=== PATIENT | female | born 1985 | race Caucasian/White ===

== ENCOUNTER 2020-05-03 18:01 | Outpatient (REF) | payer OTHER, SELFPAY | END 2020-05-03 18:02 | disposition home or self-care (01) | LOC: HO.LAB 18:01 | PROVIDERS: Visit Provider Internal Medicine | DX: Z20.828 Contact with and (suspected) exposure to other viral communicable diseases (principal) | CPT/HCPCS: C9803; U0003 ==

== ENCOUNTER 2024-05-26 07:52 | Emergency (ER) | payer OTHER, SELFPAY ==
--- NOTE | ~2024-05-26 | XR_ITS ---
EXAMINATION: XR RIGHT FOOT AND ANKLE CLINICAL INFORMATION: Pain, injury last night. COMPARISON: None available. TECHNIQUE: 3 views right foot. 2 views right ankle. FINDINGS: RIGHT FOOT/ANKLE: Minimal asymmetric widening along the lateral aspect of the ankle mortise. Small ossicles versus fractured ossicle along the lateral aspect of the midfoot. Bone mineralization is normal. Minimal degenerative changes in the first metatarsophalangeal joint. Tiny plantar calcaneal spur. XR/XR foot RT min 3V IMPRESSION: 1. Minimal asymmetric widening along the lateral aspect of the ankle mortise. 2. Small ossicles versus fractured ossicle along the lateral aspect of the midfoot. 3. Correlation with clinical exam recommended to determine further management. This study was presented today to May 26, 2024 for interpretation. Stat results provided at this time as requested by referring provider. Electronically signed by: Suzan Ludwig MD 05/26/2024 09:10 AM [facility]
--- NOTE | ~2024-05-26 | XR_ITS ---
EXAMINATION: XR RIGHT FOOT AND ANKLE CLINICAL INFORMATION: Pain, injury last night. COMPARISON: None available. TECHNIQUE: 3 views right foot. 2 views right ankle. FINDINGS: RIGHT FOOT/ANKLE: Minimal asymmetric widening along the lateral aspect of the ankle mortise. Small ossicles versus fractured ossicle along the lateral aspect of the midfoot. Bone mineralization is normal. Minimal degenerative changes in the first metatarsophalangeal joint. Tiny plantar calcaneal spur. XR/XR ankle RT 2V IMPRESSION: 1. Minimal asymmetric widening along the lateral aspect of the ankle mortise. 2. Small ossicles versus fractured ossicle along the lateral aspect of the midfoot. 3. Correlation with clinical exam recommended to determine further management. This study was presented today to May 26, 2024 for interpretation. Stat results provided at this time as requested by referring provider. Electronically signed by: Suzan Ludwig MD 05/26/2024 09:10 AM [facility]
[2024-05-26 07:54] VITALS: BP 146/72; PULSE 84; RESP 16; TEMP 36.6; O2SAT 97; BMI 39.5
--- NOTE | 2024-05-26 08:05 | ED.GENADULT ---
HPI - General Adult General Chief complaint: Extremity Injury, Lower Stated complaint: R foot pain Time Seen by Provider: 05/26/24 08:05 Source: patient Mode of arrival: ambulatory Limitations: no limitations History of Present Illness ED Provider: Amanda Spencer PA-C HPI narrative: Patient is a 38 year old assigned female at with a history of ADHD, MARK ANTHONY, and MDD presenting to the emergency department today with right ankle pain. Patient states that 2 weeks ago she rolled her right ankle and didn't think anything of it then 2 days ago she went for a 2 mile hike with new boots and is now having significantly worse right ankle pain. Patient denies any dizziness, lightheadedness, abdominal pain, nausea, vomiting, fever, chills, blurry vision, double vision, loss of vision, chest pain, difficulty breathing, shortness of breath, back pain, night sweats, pain with urination, increased urinary frequency, increased urinary urgency, blood in her urine or stool, syncope or a near syncopal episode, bowel incontinence, bladder incontinence, or any other complaints at this time. Onset (ago): day(s) (2) Relieving factors: immobilization Exacerbating factors: movement Associated symptoms: denies other symptoms Treatments prior to arrival: other (ibuprofen) Related Data Home Medications ?Medication ?Instructions ?Recorded ?Confirmed buspirone 7.5 mg tablet 7.5 mg PO BID 05/21/24 05/21/24 doxycycline hyclate 60 mg 60 mg PO DAILY PRN Flare up acne. 05/21/24 05/21/24 tablet,delayed release (Doryx MPC) spironolactone 50 mg tablet 50 mg PO BID 05/21/24 05/21/24 Previous Rx's ?Medication ?Instructions ?Recorded bupropion HCl 100 mg tablet,12 hr 100 mg PO QAM #14 tabs 05/25/24 sustained-release guanfacine 1 mg tablet,extended 1 mg PO DAILY as directed #30 tabs 05/25/24 release 24 hr lamotrigine 25 mg tablet 25 mg PO DAILY 14 days #14 tabs 05/25/24 hydrocodone 5 mg-acetaminophen 325 1 tab PO Q8H PRN pain #5 tabs 05/26/24 mg tablet Allergies Allergy/AdvReac Type Severity Reaction Status Date / Time metformin Allergy Diarrhea Verified 05/26/24 07:58 shellfish derived Allergy Diarrhea, Verified 05/26/24 07:58 vomiting, nausea. Review of Systems Constitutional: Constitutional: Reports no additional constitutional complaints, Denies chills, Denies fever(s) and Denies night sweats Eyes: Eyes: Reports no additional eye complaints, Denies blurry vision, Denies change in vision, Denies diplopia, Denies eye discharge, Denies loss of vision and Denies eye pain ENT: Denies dizziness Cardiovascular: Cardiovascular: Reports no additional cardiovascular complaints, Denies chest pain, Denies lightheadedness, Denies Loss of Consciousness and Denies dyspnea Respiratory: Respiratory: Reports no additional respiratory complaints and Denies dyspnea Gastrointestinal: Gastrointestinal: Reports no additional gastrointestinal complaints, Denies abdominal pain, Denies melena, Denies hematochezia, Denies change in bowel habits and Denies change in stool character Genitourinary: Genitourinary: Denies hematuria, Denies urinary frequency, Denies dysuria, Denies urinary incontinence, Denies urinary hesitancy and Denies urinary urgency Musculoskeletal: Musculoskeletal: Reports no additional musculoskeletal complaints, Denies numbness and Denies tingling Comments: right ankle pain Neurologic: Denies dizziness, Denies loss of vision, Denies numbness and Denies tingling Psychiatric: Psychiatric: Reports no additional psychiatric complaints Endocrine: Endocrine: Reports no additional endocrine complaints Hematologic/Lymphatic: Hematologic/Lymphatic: Reports no additional hematologic/lymphatic complaints Allergic/Immunologic: Allergic/Immunologic: Reports no additional allergic/immunologic complaints [facility] Past Medical History Attestation statement: The following information was validated with the patient. Source: old records reviewed and nursing notes reviewed Medical History Chronic headaches GERD (gastroesophageal reflux disease) High triglycerides IBS (irritable bowel syndrome) PCOS (polycystic ovarian syndrome) Surgical History History of bladder surgery Social History Social History Household Members: Spouse, Family and Children Patient Tobacco Use Status: Former Tobacco user Advance Directives: No Advance Directives Information Provided: Yes Physical Exam ED Vital Signs: Vital Signs - 24 hr 05/26/24 07:54 05/26/24 09:58 Temperature 97.9 F 97 F Pulse Rate 84 75 Respiratory Rate 16 20 Blood Pressure 146/72 H 145/74 H Pulse Oximetry 97 97 Oxygen Delivery Method Room Air Room Air BMI result Body Mass Index 39.5 Const General: cooperative, no acute distress, alert and awake Nutritional Appearance: well nourished Orientation/consciousness: patient oriented x3 Limitations: no limitations HENMT Head: Yes normal to inspection and Yes atraumatic Ears: hearing grossly normal bilaterally and external ears normal General nose exam: Normal external nose present, no nasal discharge noted and no epistaxis Face and sinus: Yes normal facial exam, No abrasion and No laceration Mouth: Normal oral and palatal mucosa present, no drooling and no muffled voice Eyes General: appearance normal, both eyes and all related structures Periorbital: periorbital findings normal Eyelids: Yes eyelids normal Conjunctivae: conjunctivae normal Pupils: Equal, round and reactive pupils present EOM: EOMs intact bilaterally Neck Neck: Yes normal visual inspection, Yes full ROM and Yes no lymphadenopathy Chest Chest palpation & inspection: normal inspection of the chest Resp Effort & Inspection: normal respiratory effort and able to speak in complete sentences GI Inspection: Yes normal to inspection Neuro General: patient oriented x3 and moves all extremities Cranial nerves: Yes Equal, round and reactive pupils present Cognition (Neuro): normal cognition Extrem General: Yes normal to inspection, Yes full ROM and Yes capillary refill normal Ankle/foot/toe images: 1. pain with palpation to this area Psych Appearance: grossly normal Mental Status: mental status grossly normal Affect: normal affect Attitude: cooperative Thought process: Normal thought process present Thought content: Normal thought content present Insight: Good insight present (Psych) Procedures Orthopedic Splinting/Casting Injury #1: Side: right Lower Extremity Injury Location: ankle Lower Extremity Immobilizer: boot orthosis Other Orthopedic Equipment: crutches Medical Decision Making Medical Decision Making MDM Narrative: Patient is a 38 year old assigned female at with a history of ADHD, MARK ANTHONY, and MDD presenting to the emergency department today with right ankle pain. Patient's physical exam was as noted in the physical exam portion of this note. Patient's ROM was intact. Patient's right foot + ankle x-rays showed minimal asymmetric widening along the lateral aspect of the ankle mortise as well as a small ossicle vs. fracture ossicle along the lateral aspect of the mid foot. Patient's examination is most consistent with an ATFL injury rather than a fractured ossicle. I explained my physical exam findings as well as all test results to the patient. I answered all questions asked by the patient. Patient's right foot / ankle was placed in a walking boot, without incident. Patient's PMS was intact prior to and after boot placement. Patient was given crutches + crutch instructions. I stressed the importance of the patient taking her medication as directed (either prescribed or as the over the counter packaging recommends). I stressed the importance of the patient following up with her primary care provider and an orthopedic provider. I stressed the importance of the patient returning to the emergency department immediately if her symptoms were to worsen or if she were to develop any dizziness, shortness of breath, difficulty breathing, chest pain, blurry vision, loss of vision, nausea, vomiting, abdominal pain, fever, chills, back pain, or any other complaints. Patient verbalized agreement and understanding with this treatment plan and discharge. Differential Diagnosis Differential Diagnoses: The differential diagnosis associated with the presentation includes Right ankle pain Right ankle strain Right ankle sprain Right ankle fracture Right foot fracture Right foot pain Right foot sprain Admission/Observation Consideration of admission/observation: Escalation of care including admission/observation considered Patient would have been admitted to the hospital had her work up had any findings where hospital admission was appropriate and her clinical presentation warranted hospital admission. Independent Interpretation I performed an independent interpretation of an: Plain X-Ray Interpretation: My interpretation is in agreement with the radiologist's impression of these imaging studies. EXAMINATION: XR RIGHT FOOT AND ANKLE CLINICAL INFORMATION: Pain, injury last night. COMPARISON: None available. TECHNIQUE: 3 views right foot. 2 views right ankle. FINDINGS: RIGHT FOOT/ANKLE: Minimal asymmetric widening along the lateral aspect of the ankle mortise. Small ossicles versus fractured ossicle along the lateral aspect of the midfoot. Bone mineralization is normal. Minimal degenerative changes in the first metatarsophalangeal joint. Tiny plantar calcaneal spur. XR/XR foot RT min 3V IMPRESSION: 1. Minimal asymmetric widening along the lateral aspect of the ankle mortise. 2. Small ossicles versus fractured ossicle along the lateral aspect of the midfoot. 3. Correlation with clinical exam recommended to determine further management. This study was presented today to May 26, 2024 for interpretation. Stat results provided at this time as requested by referring provider. Electronically signed by: Suzan Ludwig MD 05/26/2024 09:10 AM [facility] Dictated By: Suzan Ludwig MD Signed By: Electronically signed by Suzan Ludwig MD 05/26/24 09 Radiology Impression Discussion of test interpretation with radiology: I have reviewed the radiologist's reading. Prescription Management I considered prescription management with: Pain Medication (patient prescribed pain medication) Discharge Plan Discharge Clinical Impression: Ankle sprain and strain Patient Disposition: Home, Self-Care Instructions: Ankle Sprain (DC) Additional Instructions: Your x-ray showed no acute fracture / break however - it is concerning for a ligament injury. Please remain non weight bearing on your right lower extremity. Follow up with your primary care provider and an orthopedic provider. Return to the emergency department immediately if your symptoms worsen or if you develop any dizziness, shortness of breath, difficulty breathing, chest pain, blurry vision, loss of vision, nausea, vomiting, abdominal pain, fever, chills, back pain, or any other complaints. Prescriptions: New hydrocodone-acetaminophen 5-325 mg tablet 1 tab PO Q8H PRN (Reason: pain) Qty: 5 0RF Rx Instructions: Partial Fill upon patient request. No Action buspirone 7.5 mg tablet 7.5 mg PO BID Patient Comments: Last took 3-4 days ago. Rx Instructions: Last filled 04/27/24 90 day supply. spironolactone 50 mg tablet 50 mg PO BID Rx Instructions: Last filled 05/03/24 Doryx MPC 60 mg tablet,delayed release (DR/EC) 60 mg PO DAILY PRN (Reason: Flare up acne.) lamotrigine 25 mg tablet 25 mg PO DAILY 14 Days Qty: 14 0RF bupropion HCl 100 mg tablet sustained-release 12 hr 100 mg PO QAM Qty: 14 0RF guanfacine 1 mg tablet extended release 24 hr 1 mg PO DAILY Qty: 30 0RF Referrals: [facility] [Provider Group] (Call to establish and follow up with an orthopedic provider. ) Jessi Leal MD [Primary Care Provider] - Interventions: ED Discharge Assessment Last Done: 05/26/24 09:58 Discharge Date/Time: 05/26/24 09:58 Print Language: Vietnamese
[2024-05-26 09:58] VITALS: BP 145/74; PULSE 75; RESP 20; TEMP 36.1; O2SAT 97
== END 2024-05-26 09:58 | disposition home or self-care (01) ==
PROVIDERS: Emergency Provider Emergency Medicine; PCP Student in an Organized Health Care Education/Training Program
DX: S93.401A Sprain of unspecified ligament of right ankle, initial encounter (principal); S96.911A Strain of unspecified muscle and tendon at ankle and foot level, right foot, initial encounter; X50.1XXA Overexertion from prolonged static or awkward postures, initial encounter; M25.571 Pain in right ankle and joints of right foot; Y93.9 Activity, unspecified; Y92.9 Unspecified place or not applicable; Y99.9 Unspecified external cause status
CPT/HCPCS: 73600; 73630; 99283

== ENCOUNTER 2024-06-01 08:15 | Outpatient (REF) | payer OTHER, SELFPAY ==
[2024-06-01 09:59] LABS: MANUAL DIFF FLAG NO
[2024-06-01 10:07] LABS: Basophils Percent Auto 0.7 % (0-2); Eosinophils Absolute Auto 0.3 X10*3/uL (0.0-0.4); Eosinophils Percent Auto 4.7 % (0-4); Hemoglobin 14.4 g/dl (12.0-16.0); Imm Gran Abs Auto 0.02 X10*3/uL (0.00-0.03); Imm Gran Pct Auto 0.3 % (0.0-0.4); Lymphocytes Absolute Auto 1.3 X10*3/uL (1.2-4.9); Lymphocytes Percent Auto 21.9 % (20-40); Mean Corpuscular HGB Conc 33.5 g/dl (31.0-35.0); Mean Corpuscular Hemoglobin 30.3 pg (27.0-33.0); Mean Corpuscular Volume 90.3 fL (80.0-98.0); Mean Platelet Volume 10.7 fL (9.4-12.3); Monocytes Absolute Auto 0.4 X10*3/uL (0.1-1.2); Neutrophils Percent Auto 66.4 % (45-73); Platelet Count 243 X10*3/uL (160-400); Red Blood Count 4.76 X10*6/uL (4.20-5.50); Red Cell Distribution Width 12.6 % (11.0-16.0)
[2024-06-01 10:16] LABS: Estimated Average Glucose 91 mg/dL; Hemoglobin A1C 106.8781 umol/L; Hemoglobin A1c % 4.8 % (<6.0); Total Hemoglobin (HGBA1C) 3715.0551 umol/L
[2024-06-01 10:29] LABS: Alanine Aminotransferase 50 U/L (0-31); Albumin Level 4.5 g/dL (3.5-5.0); Alkaline Phosphatase 50 U/L (39-117); Anion Gap 11 (12-20); Aspartate Amino Transferase 27 U/L (5-31); Bilirubin Total 1.8 mg/dL (0.0-1.0); Blood Urea Nitrogen 16 mg/dL (9-16); Calcium 10.2 mg/dL (8.4-10.2); Carbon Dioxide 28 mmol/L (22-29); Chloride 106 mmol/L (96-108); Cholesterol 229 mg/dL (<200); Estimated Glomerular Filt Rate > 60; Glucose Random 100 mg/dL (60-115); HDL Cholesterol 61 mg/dL (>40); Iron 94 mcg/dL (30-160); LDL Cholesterol Calculated 139 mg/dL (<100); Percent Iron Saturation 32 % (15-50); Potassium 4.6 mmol/L (3.3-5.1); Sodium 140 mmol/L (135-145); Total Iron Binding Capacity 298 mcg/dL (228-428); Total Protein 7.9 g/dL (6.5-8.0); Triglycerides 146 mg/dL (<150); Unsaturated Iron Binding 204 ug/dL
[2024-06-01 10:52] LABS: Erythrocyte Sedimentation Rate 13 MM/HR (0-20)
[2024-06-01 11:51] LABS: Parathyroid Hormone Intact 62.3 pg/mL (8.7-77.1)
[2024-06-01 12:19] LABS: Folate 10.2 ng/mL (> or = 4.0); Vitamin B12 511 pg/mL (200-900)
[2024-06-01 13:06] LABS: Ferritin 99 ng/mL (10-122); Free T4 (Free Thyroxine) 1.04 ng/dL (0.71-1.85); Thyroid Stimulating Hormone 1.31 uIU/mL (0.32-4.0)
[2024-06-02 22:58] LABS: Homocysteine 8.1 umol/L (<10.4)
[2024-06-06 14:08] LABS: Vitamin B6 28.5 ng/mL (2.1-21.7)
[2024-06-08 13:54] LABS: Vitamin B1 10 nmol/L (8-30)
== END 2024-06-01 08:16 | disposition home or self-care (01) ==
LOC: HO.HMGCLDS 08:15
PROVIDERS: PCP Student in an Organized Health Care Education/Training Program; Visit Provider Psychiatry & Neurology Psychiatry
DX: F33.2 Major depressive disorder, recurrent severe without psychotic features (principal); F41.1 Generalized anxiety disorder; Z13.1 Encounter for screening for diabetes mellitus
CPT/HCPCS: 36415; 80053; 80061; 82306; 82607; 82728; 82746; 83036; 83090; 83540; 83735; 83970; 84100; 84207; 84425; 84439; 84443; 85025; 85652

== ENCOUNTER → 2024-06-03 09:00 | Outpatient (BNV) | payer OTHER, SELFPAY | PROVIDERS: Visit Provider Psychiatry & Neurology Psychiatry | DX: F33.2 Major depressive disorder, recurrent severe without psychotic features (principal); F41.1 Generalized anxiety disorder; R41.840 Attention and concentration deficit | CPT/HCPCS: 99213 ==

== ENCOUNTER 2024-06-11 10:23 | Outpatient (AMB) | payer OTHER, SELFPAY ==
--- NOTE | 2024-06-11 10:24 | A.OFFVIS_ITS ---
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 Patient reports less than week prior to [facility] ER visit she rolled her ankle upon getting out of her car, states she had no pain. Her pain increased after she went on a walk about 2 days prior to her ER visit. She started with a limp and was unable to toe touch weight bear. She presented to ER where x-rays were taken and placed in a walking boot. Currently she feels tightness and is unable to fully flex her toes. States having a tingling sensation, no numbness. Allergies metformin Allergy (Verified 06/11/24 10:28) Diarrhea shellfish derived Allergy (Verified 06/11/24 10:28) Diarrhea, vomiting, nausea. 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 She states that she stepped down and rolled her ankle but did not have immediate pain. That following Friday she went for a long walk and started experiencing pain and limping. She was seen in the emergency department on 05/26 or x-rays were obtained and showed an avulsion fragment along the cuboid. No fractures or dislocations throughout the metatarsals or the ankle. Ankle mortise was intact. She was placed in a boot and referred to our office for ortho eval. [facility] Medical History (Updated 06/11/24 @ 10:45 by Alesia Henderson PA-C) Chronic headaches GERD (gastroesophageal reflux disease) High triglycerides IBS (irritable bowel syndrome) PCOS (polycystic ovarian syndrome) Surgical History (Updated 06/11/24 @ 10:30 by HI Osborne) History of bladder surgery Social History (Updated 06/11/24 @ 10:36 by HI Osborne) Household Members: Spouse, Family and Children Patient Tobacco Use Status: Former Tobacco user Current occupational status: employed Review of Systems Const All systems reviewed & are unremarkable except as noted in HPI and below Physical Exam Vital Signs: BMI result Body Mass Index 39.5 Const General: cooperative and no acute distress Orientation/consciousness: patient oriented x3 Resp Effort & Inspection: normal respiratory effort and able to speak in complete sentences Cardio Peripheral pulses: Peripheral pulses 2+ throughout Neuro General: patient oriented x3 Extrem Other: Right foot is normal to inspection. She does have tenderness over the lateral edge of the foot which extends into the calcaneus. Full range of motion of the ankle without crepitus. EHL intact. No pain along the Achilles tendon. Neurovascularly intact. Office Procedures AMB Fracture Care Fracture Billing Code: Fracture Billing Code Results Reviewed Results Reviewed: xrays right foot/ankle 05/26/24 IMPRESSION: 1. Minimal asymmetric widening along the lateral aspect of the ankle mortise. 2. Small ossicles versus fractured ossicle along the lateral aspect of the midfoot. 3. Correlation with clinical exam recommended to determine further management. Assessment & Plan Assessment & Plan (1) Right foot sprain: Code(s): S93.601A - Unspecified sprain of right foot, initial encounter Category: Medical Plan: She will continue using the boot weightbearing as tolerated. She can remove the boot for rest and hygiene. She will begin a course of physical therapy for range of motion gentle strengthening proprioceptive training. She should start to wean out of the boot as symptoms allow over the next [address] as tolerated. She will begin a new job on 07 03 which would consist of more walking and standing. At this time I encouraged her to work with therapy rest for the next 2 weeks and try to wean out of the boot and depending on how she is doing she can contact me for limitations returning to work otherwise she will work full duty without restrictions and see me back as needed. Orders: Orders PT Evaluation and Treatment Today S93.601A - Unspecified sprain of right foot, initial encounter Medications: Discontinued lamotrigine Discontinued Reason: Patient no longer taking 25 mg PO DAILY 14 days 14 tabs 0RF hydrocodone-acetaminophen 5-325 mg Partial Fill upon patient request. Discontinued Reason: Patient no longer taking 1 tab PO Q8H PRN 5 tabs 0RF pain Coding Level of Care Code New Pt Level 3 (92930) Complex EM visit Add On G2211 Diagnoses Right foot sprain S93.601A CPT Codes Fracture Care - Fracture Billing Code: Fracture Billing Code ([id number])
[2024-06-11 10:27] VITALS: BMI 39.5
== END 2024-06-11 10:54 | disposition home or self-care (01) ==
PROVIDERS: PCP Student in an Organized Health Care Education/Training Program; Visit Provider Physician Assistant
DX: S93.601A Unspecified sprain of right foot, initial encounter (principal)
CPT/HCPCS: 99203

== ENCOUNTER 2024-06-15 10:30 | Outpatient (RCR) | payer OTHER, SELFPAY ==
[2024-05-21 09:43] VITALS: BMI 39.6
[2024-05-21 09:44] VITALS: BP 106/70; PULSE 80; TEMP 36.6
--- NOTE | 2024-05-21 10:49 | PC.ADMIT ---
Patient is a 38 year old female who was referred to [facility] by her spouse who was treated at [facility]. 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 Patient reports new management changes at work creating increased stress. Patient took BRAULIO from work to work on her mental health. Patient is alert and oriented x4. Calm and cooperative. She presented with depressed mood and anxious affect. Regarding SI patient stated, I have no plans but I have thought of ideas and I do have recurring feelings I would be better off if I did not wake up. Protective factor are her children. Patient started, My kids rely on me and to have there mom around and I am the bread winner. Patient reports she is at the program to work on this. She stated, That is why I am here . Patient stated she is able to reach out to crisis if needed as she has called them in the past. She stated she does reach out to somebody when needed. I've called my mom when I am in a crisis . Patient was given a copy of her safety plan if needed. Her goal of treatment is to be able to process things and improve her functioning. Medications reconciled with patient and patient pharmacy. Patient reports that she has been forgetting to take Buspar medication. We talked about ways to remember to take medications consistently. Patient reports she has used a pill organizer in the past with good results and is planning on implementing using a pill organizer to help her stay on track. We also talked about using an alarm on her phone and having a daily routine to help as well. Patient reports she has 1-2 glasses of wine, mostly socially, a few times a month.
--- NOTE | 2024-05-25 12:45 | P.HPPSP_ITS ---
HPI Date of Service: 05/25/24 Chief Complaint: depression,anxiety Sources of Information: patient interviewed, chart reviewed and crisis/core team assessment reviewed HPI Past Psychiatric History: Therapist: Justyna Anand 2019 Previous trials: WEllbutrin, Effexor, Celexa, Prozac, Remeron, Trileptal, Zyprexa, Seroquel, Ativan, trazodone Current Medications: Buspar 7.5 mg BID Ativan prn (old script but still around the house, uses rarely) spironolactone 50 mg BID [facility] Medical History Chronic headaches GERD (gastroesophageal reflux disease) High triglycerides IBS (irritable bowel syndrome) PCOS (polycystic ovarian syndrome) Narrative: LMP: due soon (irreg) Surgical History History of bladder surgery Diagnostics Vital Signs (24Hr): BMI result Body Mass Index 39.6 Meds/Allergies Meds Home Medications ?Medication ?Instructions ?Recorded ?Confirmed ?Type buspirone 7.5 mg tablet 7.5 mg PO BID 05/21/24 05/21/24 History doxycycline hyclate 60 mg 60 mg PO DAILY PRN Flare up acne. 05/21/24 05/21/24 History tablet,delayed release (Doryx MPC) spironolactone 50 mg tablet 50 mg PO BID 05/21/24 05/21/24 History Allergies Allergies Allergy/AdvReac Type Severity Reaction Status Date / Time metformin Allergy Diarrhea Verified 05/26/24 07:58 shellfish derived Allergy Diarrhea, Verified 05/26/24 07:58 vomiting, nausea. Mental Status Exam Mental Status Exam Narrative: Alert, oriented, in no acute distress. Calm, cooperative, engaged. No psychomotor agitation or neurovegetative retardation. Eye contact maintained. Mood anxious, affect variable, mood congruent. Speech normal. Thought process linear, coherent. Thought content related to stressors, denies any hopelessness or SI. Denies any aggressive ideation or HI. No paranoia or delusional content elicited. No evidence of psychosis. Insight and judgment - fair but adequate. Assessment & Plan Assessment & Plan (1) MDD (major depressive disorder), recurrent severe, without psychosis: Status: Acute Code(s): F33.2 - Major depressive disorder, recurrent severe without psychotic features (2) MARK ANTHONY (generalized anxiety disorder): Status: Acute Code(s): F41.1 - Generalized anxiety disorder (3) Attention and concentration deficit: Status: Acute Code(s): R41.840 - Attention and concentration deficit Plan Admit to [facility] VS reviewed: isabell, BP 106/70;?80 bpm start Wellbutrin SR 50 mg qam start guanfacine ER 1 mg qam start lamotrigine 25 mg qam discontinue buspirone continue other regular medications: spironolactone 50 mg BID, ? Routine lab work ordered as indicated EKG, routine for baseline QTc for medication considerations as indicated UDS as indicated [facility] reviewed Continue to monitor as per protocol Patient educated on: diagnosis and medication risk/benefits Informed Consent: understands Reason for continued partial hosp. stay Substantial Risk for: inability to function, rapid decompensation and med/psych decompensation Certification I certify that partial hospital treatment is medically necessary due to the symptoms and problems resulting from the patient's mental illness and the failure to treat the patient at the partial hospital level of care would likely result in the patient requiring inpatient psychiatric care which could not be prevented at a less intensive level of care. Time Spent With Patient Time: Total time managing care of this patient today _60___ minutes.
--- NOTE | 2024-06-03 12:56 | P.PNPSP_ITS ---
Subjective Subjective Date of Service: 06/03/24 Reason For Visit: depression,anxiety Interim History: Patient reports she is still struggling with everything . Mood continues to be low, with low energy, motivation, just not feeling up to do anything . She shares feeling frustrated in general and that there are a lot of issues going on at home which she elaborates on. She describes poor frustration tolerance and continues to get really reactive and snaps at her and young children. She denies any issues with aggression. I'm just in a really bad mood and stressed out . She denies any further deterioration in her mood which is about the same . She notes since we last met, she somehow injured her foot which is in a boot, and has added more tension in the home due to difficulty getting around. On a positive note, there has been some modest change in energy level, but overall still remains on the low side and takes a lot of effort to motivate herself to do things. She continues on only a 1/2 tablet of Wellbutrin, denies any adverse effects so far and is agreeable to increasing to whole tablet daily in AM. SHe denies experiencing adverse affects from any of the medication. No issues with starting Lamcital 25 mg. She feels there have been some modest improvements in her physical anxiety which may be attributed to guanfacine, and is taking all the medication in the AM, as planned, which has helped simplified treatment and improved compliance. She endorses some ongoing SI trickling through here and there, but I never have any plan or intent . Last thought was this morning. Continues with anhedonia, feeling stuck and overwhelmed most the time . DEnies any current SI, no HI, AH, VH. Will contiue with medication changes. Medication Compliance: Yes Side effects from medications: No Attending Groups: Yes Review of Systems Acute medical concerns: No Medical Review of Systems: unchanged Mental Status Exam Mental Status Exam Narrative: Alert, oriented, in no acute distress. Mood depressed affect blunted. Speech normal. Thought process linear, coherent. Thought content related to stressors, demoralized, transient hopelessness and passive SI, denies any thoughts, intention, urge or plan to harm self. Denies any aggressive ideation or HI. No paranoia or delusional content elicited. No evidence of psychosis. Insight and judgment - fair but adequate. Diagnostics Vital Signs (24Hr): BMI result Body Mass Index 39.6 Assessment & Plan Assessment & Plan (1) MDD (major depressive disorder), recurrent severe, without psychosis: Status: Acute Code(s): F33.2 - Major depressive disorder, recurrent severe without psychotic features (2) MARK ANTHONY (generalized anxiety disorder): Status: Acute Code(s): F41.1 - Generalized anxiety disorder (3) Attention and concentration deficit: Status: Acute Code(s): R41.840 - Attention and concentration deficit Plan extend treatment at [facility] increase Wellbutrin SR to 100 mg qam and will plan to add 50 mg at lunch over weekend continue guanfacine ER 1-2 mg qam continue lamotrigine 25 mg qam (increase to 50 mg on 06/08) discontinue buspirone continue other regular medications: spironolactone 50 mg BID, ? Routine lab work ordered as indicated EKG, routine for baseline QTc for medication considerations as indicated UDS as indicated MassPat reviewed Continue to monitor as per protocol Patient educated on: diagnosis and medication risk/benefits Informed Consent: understands Reason for contiued partial hosp. stay Substantial Risk for: inability to function, rapid decompensation and med/psych decompensation Certification I certify that partial hospital treatment is medically necessary due to the symptoms and problems resulting from the patient's mental illness and the failure to treat the patient at the partial hospital level of care would likely result in the patient requiring inpatient psychiatric care which could not be prevented at a less intensive level of care. Total time managing care of this patient today __30__ minutes. Discharge Plan Discharge Attending provider: Tiffany Ulrich Medications: New lamotrigine 25 mg tablet 25 mg PO DAILY 14 Days Qty: 14 0RF bupropion HCl 100 mg tablet sustained-release 12 hr 100 mg PO QAM Qty: 14 0RF guanfacine 1 mg tablet extended release 24 hr 1 mg PO DAILY Qty: 30 0RF lamotrigine 25 mg tablet See Rx Instructions .ROUTE .COMPLEX Qty: 75 0RF Rx Instructions: take 2 tablet po daily for 2 weeks then increase to 3 tablet po daily Continued buspirone 7.5 mg tablet 7.5 mg PO BID Patient Comments: Last took 3-4 days ago. Rx Instructions: Last filled 04/27/24 90 day supply. spironolactone 50 mg tablet 50 mg PO BID Rx Instructions: Last filled 05/03/24 No Action Doryx MPC 60 mg tablet,delayed release (DR/EC) 60 mg PO DAILY PRN (Reason: Flare up acne.) hydrocodone-acetaminophen 5-325 mg tablet 1 tab PO Q8H PRN (Reason: pain) Qty: 5 0RF Rx Instructions: Partial Fill upon patient request. Stand Alone Forms: Patient Portal Discharge page Print Language: Hungarian Telehealth Telehealth Telehealth Platform: Telephone
--- NOTE | 2024-06-03 16:13 | HO.PHP ---
Jasmyne was called at home to inform her not to attend [facility] tomorrow, 06/04/24 while we await approval from [facility] for more authorized time. Jasmyne's last covered day was today. A concurrent review was submitted this morning but the [facility] textiles sales representative Shannon declined to approve days and requested an updated doctor's note. The note will be submitted to [facility] tomorrow morning. Jasmyne reports she is safe and is expecting to resume at [facility] on Friday once [facility] has approved the extension.
--- NOTE | 2024-06-08 14:50 | P.PNPSP_ITS ---
Subjective Subjective Date of Service: 06/08/24 Reason For Visit: depression,anxiety Interim History: Reports things have been difficult. Mood has been up and down . Yesterday was particularly difficult, had some SI thoughts. Today has been good . She has been tolerating medications. Started WEllbutrin, increase to 150 mg over past weekend. Guanfacine initially helpful for anxiety although not feeling it as much since increasing Wellbutrin to 150 mg. Denies any SI today. Medication Compliance: Yes Side effects from medications: No Attending Groups: Yes Review of Systems Acute medical concerns: No Mental Status Exam Mental Status Exam Narrative: Alert, oriented, in no acute distress. Mood depressed affect blunted. Speech normal. Thought process linear, coherent. Thought content related to stressors, demoralized, transient hopelessness and passive SI, denies any thoughts, intention, urge or plan to harm self. Denies any aggressive ideation or HI. No paranoia or delusional content elicited. No evidence of psychosis. Insight and judgment - fair but adequate. Diagnostics Vital Signs (24Hr): BMI result Body Mass Index 39.6 Assessment & Plan Assessment & Plan (1) MDD (major depressive disorder), recurrent severe, without psychosis: Status: Acute Code(s): F33.2 - Major depressive disorder, recurrent severe without psychotic features (2) MARK ANTHONY (generalized anxiety disorder): Status: Acute Code(s): F41.1 - Generalized anxiety disorder (3) Attention and concentration deficit: Status: Acute Code(s): R41.840 - Attention and concentration deficit Plan extend treatment at [facility] increase Wellbutrin SR to 200 mg/d (cont 100 mg in qam and increase to 100 mg at lunch) increase guanfacine ER from 1 mg BID to 1 mg qam and 2 mg qpm increase lamotrigine to 50 mg qam (continue titration by 25 mg q 2wks) continue other regular medications: spironolactone 50 mg BID discontinued: buspirone Routine lab work reviewed EKG, routine for baseline QTc for medication considerations as indicated Continue to monitor as per protocol Patient educated on: diagnosis and medication risk/benefits Informed Consent: understands Reason for contiued partial hosp. stay Substantial Risk for: inability to function and med/psych decompensation Certification I certify that partial hospital treatment is medically necessary due to the symptoms and problems resulting from the patient's mental illness and the failure to treat the patient at the partial hospital level of care would likely result in the patient requiring inpatient psychiatric care which could not be prevented at a less intensive level of care. Total time managing care of this patient today _30___ minutes. Discharge Plan Discharge Attending provider: Tiffany Ulrich Medications: New lamotrigine 25 mg tablet 25 mg PO DAILY 14 Days Qty: 14 0RF lamotrigine 25 mg tablet See Rx Instructions .ROUTE .COMPLEX Qty: 75 0RF Rx Instructions: take 2 tablet po daily for 2 weeks then increase to 3 tablet po daily guanfacine 2 mg tablet extended release 24 hr 2 mg PO QPM Qty: 30 0RF Continued buspirone 7.5 mg tablet 7.5 mg PO BID Patient Comments: Last took 3-4 days ago. Rx Instructions: Last filled 04/27/24 90 day supply. spironolactone 50 mg tablet 50 mg PO BID Rx Instructions: Last filled 05/03/24 Changed bupropion HCl 100 mg tablet sustained-release 12 hr 100 mg PO BID Qty: 30 0RF guanfacine 1 mg tablet extended release 24 hr 1 mg PO QAM Qty: 30 0RF No Action Doryx MPC 60 mg tablet,delayed release (DR/EC) 60 mg PO DAILY PRN (Reason: Flare up acne.) hydrocodone-acetaminophen 5-325 mg tablet 1 tab PO Q8H PRN (Reason: pain) Qty: 5 0RF Rx Instructions: Partial Fill upon patient request. Stand Alone Forms: Patient Portal Discharge page Print Language: Sudanese
--- NOTE | 2024-06-15 22:00 | HO.PHPPROGNO ---
Subjective Subjective Date of Service: 06/15/24 Reason For Visit: depression,anxiety Mental Status Exam Mental Status Exam Narrative: Alert, oriented, in no acute distress. Mood depressed affect blunted. Speech normal. Thought process linear, coherent. Thought content related to stressors, demoralized, transient hopelessness and passive SI, denies any thoughts, intention, urge or plan to harm self. Denies any aggressive ideation or HI. No paranoia or delusional content elicited. No evidence of psychosis. Insight and judgment - fair but adequate. Diagnostics Vital Signs (24Hr): BMI result Body Mass Index 39.6 Assessment & Plan Assessment & Plan (1) MDD (major depressive disorder), recurrent severe, without psychosis: Status: Acute Code(s): F33.2 - Major depressive disorder, recurrent severe without psychotic features (2) MARK ANTHONY (generalized anxiety disorder): Status: Acute Code(s): F41.1 - Generalized anxiety disorder (3) Attention and concentration deficit: Status: Acute Code(s): R41.840 - Attention and concentration deficit Plan Discharge from [facility] - transition to IOP continue Wellbutrin SR 200 mg/d (split 100 mg BID in am/noon) increase guanfacine ER from 1 mg BID to 1 mg qam and 2 mg qpm continue lamotrigine 50 mg qam (continue titration by 25 mg q 2wks until 100 mg/d) start oxcarbazepine 150 mg qhs, increase to 300 mg qhs as tolerated continue other regular medications: spironolactone 50 mg BID discontinued: buspirone Routine lab work reviewed EKG, routine for baseline QTc for medication considerations as indicated Continue to monitor as per protocol Patient educated on: diagnosis and medication risk/benefits Informed Consent: understands Certification I certify that partial hospital treatment is medically necessary due to the symptoms and problems resulting from the patient's mental illness and the failure to treat the patient at the partial hospital level of care would likely result in the patient requiring inpatient psychiatric care which could not be prevented at a less intensive level of care. Total time managing care of this patient today ____ minutes. Discharge Plan Discharge Attending provider: Tiffany Ulrich Medications: New lamotrigine 25 mg tablet See Rx Instructions .ROUTE .COMPLEX Qty: 75 0RF Rx Instructions: take 2 tablet po daily for 2 weeks then increase to 3 tablet po daily guanfacine 2 mg tablet extended release 24 hr 2 mg PO QPM Qty: 30 0RF oxcarbazepine 300 mg tablet See Rx Instructions .ROUTE .COMPLEX Qty: 30 0RF Rx Instructions: start 1/2 tablet po twice daily for 6 days, then increase to 1 tablet po twice daily lamotrigine 100 mg tablet 100 mg PO DAILY Qty: 30 0RF Continued spironolactone 50 mg tablet 50 mg PO BID Rx Instructions: Last filled 05/03/24 Changed bupropion HCl 100 mg tablet sustained-release 12 hr 100 mg PO BID Qty: 30 0RF guanfacine 1 mg tablet extended release 24 hr 1 mg PO QAM Qty: 30 0RF No Action Doryx MPC 60 mg tablet,delayed release (DR/EC) 60 mg PO DAILY PRN (Reason: Flare up acne.) Stand Alone Forms: Patient Portal Discharge page Print Language: Tamazight
== END 2024-06-15 23:59 | disposition home or self-care (01) ==
LOC: HO.PHPA 10:30
PROVIDERS: Visit Provider Psychiatry & Neurology Psychiatry
DX: F33.2 Major depressive disorder, recurrent severe without psychotic features (principal); F41.1 Generalized anxiety disorder; R41.840 Attention and concentration deficit; Z79.899 Other long term (current) drug therapy
CPT/HCPCS: 90791; 90853

== ENCOUNTER 2024-06-16 09:49 | Outpatient (RCR) | payer OTHER, SELFPAY ==
--- NOTE | 2024-06-16 10:56 | MHC.PT.EP ---
[facility] [place] Office [place] [facility] [place] Office [address] [phone] F: [phone] F: [phone] F: [phone] F: [phone] Physical Therapy Plan of Care Date of Evaluation: 06/16/24 Date of Surgery: Diagnosis: R foot sprain. Assessment: Patient is a 38 year old R handed female who presents with s/s consistent with R ankle sprain, pain. She works with daily job demands including a fairly sedentary job. She does like to be active and hike. Patient past medical history is non-contributory. Current impairments include pain, balance, ROM, strength, activity tolerance and functional mobility. Functional limitations include decreased ability to stand, walk, hike, stand for long periods, and negotiate stairs. Patient is motivated with good rehab potential. Skilled PT will address impairments and functional limitations in order to achieve goals. Frequency and Duration: The patient will be seen 2x/week for 5 weeks Short Term Goals: I with HEP - 2 weeks AROM WNL and pain free - 3 weeks TTP absent plantar surface of foot - 3 weeks Nursing Home Goals: Strength 5/5 grossly in ankle - 5 weeks LEFS 68/80 - 5 weeks Restore pain free PLOF - 5 weeks Treatment Plan: Modalities to reduce pain, spasms and effusion. Manual therapy to restore motion and function. Therapeutic exercise to improve strength and flexibility. Neuromuscular re-education for posture and balance. Therapeutic activities to return to functional activities of daily living. Electronically signed by: Cipriano Frederick PT Please sign and return to therapist. Thank you for your referral.
--- NOTE | 2024-09-01 13:33 | MHC.PT.DC ---
[facility] [place] Office [place] Office [place] Office [address] Jessy Wheeler [address] [phone] F: [phone] F: [phone] F: [phone] F: [phone] Physical Therapy Discharge Report Diagnosis: R foot sprain. Date of Surgery: Date of Evaluation: 06/16/24 Date of Discharge: 07/13/24 Treatments to Date: 1 Cancellations to Date: No Shows to Date: Discharge Status: Independent with HEP Discharge Summary: Patient is a 38 year old R handed female who presents with s/s consistent with R ankle sprain, pain. She works with daily job demands including a fairly sedentary job. She does like to be active and hike. Patient past medical history is non-contributory. Current impairments include pain, balance, ROM, strength, activity tolerance and functional mobility. Functional limitations include decreased ability to stand, walk, hike, stand for long periods, and negotiate stairs. Patient is motivated with good rehab potential. Skilled PT will address impairments and functional limitations in order to achieve goals. Electronically signed by: Cipriano Frederick, PT Please sign and return to therapist. Thank you for your referral.
== END 2024-09-01 13:34 | disposition home or self-care (01) ==
LOC: HO.PTCHIC 09:49
PROVIDERS: PCP Student in an Organized Health Care Education/Training Program; Visit Provider Physician Assistant
DX: S93.601D Unspecified sprain of right foot, subsequent encounter (principal)
CPT/HCPCS: 97110; 97162

== ENCOUNTER → 2024-07-02 09:15 | Outpatient (BNV) | payer OTHER, SELFPAY | PROVIDERS: Visit Provider Psychiatry & Neurology Psychiatry | DX: F33.2 Major depressive disorder, recurrent severe without psychotic features (principal); F63.89 Other impulse disorders; F41.3 Other mixed anxiety disorders; R41.840 Attention and concentration deficit | CPT/HCPCS: 90792 ==

== ENCOUNTER 2024-07-16 09:15 | Outpatient (RCR) | payer OTHER, SELFPAY ==
[2024-06-25 11:59] VITALS: BP 108/80; PULSE 72; TEMP 36.7
[2024-06-25 12:02] VITALS: BMI 39.5
--- NOTE | 2024-06-28 10:33 | HO.PHP ---
Jasmyne is not scheduled for [facility] today.
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
--- NOTE | 2024-07-01 15:31 | HO.IOP ---
Client's case has been opened and reviewed in team.
--- NOTE | 2024-07-06 16:06 | PM.EVENT ---
Event Note Date of Service: 07/06/24 Event Note: sent 90 day supply guanfacine 2 mg hs . Filled out rtw letter . coverage for dr dwyer Time Spent With Patient Time: Total time managing care of this patient today ____ minutes.
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
--- NOTE | 2024-07-16 13:15 | HO.PHPPROGNO ---
Subjective Subjective Date of Service: 07/16/24 Reason For Visit: depression,anxiety Diagnostics Vital Signs (24Hr): BMI result Body Mass Index 39.5 Assessment & Plan Certification I certify that partial hospital treatment is medically necessary due to the symptoms and problems resulting from the patient's mental illness and the failure to treat the patient at the partial hospital level of care would likely result in the patient requiring inpatient psychiatric care which could not be prevented at a less intensive level of care. Total time managing care of this patient today ____ minutes. Discharge Plan Discharge Attending provider: Tiffany Ulrich Medications: New lisdexamfetamine 10 mg capsule 10 mg PO QAM Qty: 14 0RF Rx Instructions: Partial Fill upon patient request. guanfacine 3 mg tablet extended release 24 hr 3 mg PO QPM Qty: 30 0RF Rx Instructions: DOSE TITRATION SO NOT 90 DAYS Continued spironolactone 50 mg tablet 50 mg PO BID Rx Instructions: Last filled 05/03/24 Doryx MPC 60 mg tablet,delayed release (DR/EC) 60 mg PO DAILY PRN (Reason: Flare up acne.) bupropion HCl 100 mg tablet sustained-release 12 hr 100 mg PO BID 90 Days Qty: 180 0RF oxcarbazepine 300 mg tablet See Rx Instructions .ROUTE .COMPLEX Qty: 90 0RF Patient Comments: Patient stated she is currently taking one tab daily as instructed. Has not increased BID. Patient to discuss with Dr. Ulrich. Rx Instructions: start 1/2 tablet po twice daily for 6 days, then increase to 1 tablet po twice daily gabapentin 300 mg capsule 300 mg PO BEDTIME Qty: 30 0RF Rx Instructions: 1 cap bedtime. DOSE ADJUSTING SO NOT 90 DAYS gabapentin 100 mg capsule 100 mg PO BID Qty: 60 0RF Rx Instructions: 1 cap morning and afternoon. 1 cap as needed 2 times per day for anxiety. DOSE TITRATION SO NOT 90 DAY SUPPLY guanfacine 1 mg tablet extended release 24 hr 1 mg PO QAM Qty: 90 0RF Changed lamotrigine 100 mg tablet 200 mg PO DAILY Qty: 180 0RF Patient Comments: Patient to discuss with Dr. Ulrich when to increase to 100 mg daily. Rx Instructions: Patient has not started. She is currently taking 75 mg daily. Discontinued guanfacine 2 mg tablet extended release 24 hr 2 mg PO QPM Qty: 90 0RF guanfacine 2 mg tablet extended release 24 hr 2 mg PO QPM Qty: 30 0RF lamotrigine 25 mg tablet 75 mg PO DAILY Patient Comments: Patient stated she is now taking 3 tabs daily. Rx Instructions: Take 3 tabs daily. Stand Alone Forms: Patient Portal Discharge page Print Language: Chilean
== END 2024-07-16 23:59 | disposition home or self-care (01) ==
LOC: HO.IOP 09:15
PROVIDERS: Visit Provider Psychiatry & Neurology Psychiatry
DX: F33.2 Major depressive disorder, recurrent severe without psychotic features (principal); F41.3 Other mixed anxiety disorders; F41.1 Generalized anxiety disorder; F63.89 Other impulse disorders; R41.840 Attention and concentration deficit; Z79.899 Other long term (current) drug therapy
CPT/HCPCS: 90791; S9480

== ENCOUNTER → 2024-10-18 08:02 | Outpatient (BNVA) | payer OTHER, SELFPAY | PROVIDERS: PCP Student in an Organized Health Care Education/Training Program; Visit Provider Surgery ==

== ENCOUNTER 2024-10-29 08:31 | Outpatient (AMB) | payer OTHER, SELFPAY ==
--- NOTE | 2024-10-29 10:43 | A.OFFVIS_ITS ---
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 40.4: Details: Start time: 10.35am, End time: 11.15am ?I spent 35 minutes speaking with the patient on the phone plus an additional 5 minutes reviewing and updating records for a total of 40 minutes HPI Comments Details: Previous weight loss surgery: Ozempic (a few months: 10lbs, had side effects), hypnosis, RD, Contrave, WW Wakes up: 6am, Sleeps: 12am Breakfast: 8am (banana, cereal) Lunch: 12pm (yogurt, banana, buritos) Dinner: 6-7pm (tacos, pasta, take-out) Snacks: 9-10pm (popcorn, cookies, ice cream) Exercise: walking pad Beverages: Coffee: none, tea: none, soda: 1/wk (coke zero, diet coke), juice: none, ETOH: none PFSH Medical History (Updated 10/29/24 @ 10:48 by Eduard Tesfaye MD) Morbid obesity Hypertension Fatty liver Chronic headaches GERD (gastroesophageal reflux disease) High triglycerides IBS (irritable bowel syndrome) PCOS (polycystic ovarian syndrome) Surgical History (Updated 06/11/24 @ 10:30 by HI Osborne) History of bladder surgery Family History (Updated 10/18/24 @ 08:17 by Surekha Hopkins CMA) Mother No problems noted. Father TIA (transient ischemic attack) Depression Anxiety Daughter No problems noted. Daughter No problems noted. Social History (Updated 10/18/24 @ 08:17 by Surekha Hopkins CMA) Household Members: Family Alcohol intake: never Comment: FRANNIE 07/16/24 Patient Tobacco Use Status: Former Tobacco user Current occupational status: employed Telehealth Telehealth Telehealth Platform: Telephone Location of provider rendering services: practice address Location of patient: address on file Patient Identification confirmed using: Name, : Yes Telehealth method: voice only Patient verbally consented to treatment: Yes Patient verbally consented to billing insurance company: Yes Patient informed of any privacy concerns related to visit: Yes Minutes spent on Phone/Video with Pt.: 40 Assessment & Plan Assessment & Plan (1) Morbid obesity: Code(s): E66.01 - Morbid (severe) obesity due to excess calories Category: Medical Plan: 1.? Plan for lap sleeve gastrectomy. If diaphragmatic or ventral hernias are present at time of surgery, these will be repaired laparoscopically as well. I emphasized the importance of close follow-up, adherence to instructions and good communication. The surgery does not replace the need to change your lifestlyle which is the cause of the obesity problem. The surgery provides the motivation to try again to change your lifestyle, it reduces the appetite and make the transition to a better lifestyle easier and doubles the amount of weight you would lose compared to doing the lifestyle change without the surgery. You will need to be on a liquid diet with protein shakes for 2 weeks before surgery to maximize weight loss and boost your nutritional status to recover better from surgery and also for the first two weeks after surgery to let the stomach heal before we introduce other foods. After the first 2 weeks we will introduce protein bars and soft foods like scrambled eggs, cottage cheese and yogurt and after the 6th week will introduce meat, fish and cooked vegetables in small amounts. Over time you should be able to eat everything in small amounts. Side effects like nausea, vomiting, heartburn or abdominal pain are not common in the practice unless you are not following in the practice. This operation requires lifetime commitment to following in our practice and communication with me. You will much less weight and experience side effects if you don?t communicate or not following in the practice. Complications are rare and in our practice is about 1/10 of the national average. However, you can develop bleeding that may require transfusion (hasn?t happened for year in the practice), you may from complications (we did not have any deaths in the practice) and infections. Infections are usually a result of breakdown in communication or not understanding or following directions correctly. They are difficult to treat, they can happen during the first 6 weeks, they may require to be in the hospital for weeks or even months, not being able to eat by mouth and you may have drains and surgeries to try and correct the issue. Other risks and complications include possible conversion to an open procedure, leaks, small bowel obstruction, blood clots, cardiac, or pulmonary complications, as half-way complications such as ulcers, insufficient weight loss and vitamin deficiencies. 2. You will receive a link of our software sarah to generate an individualized nutritional and exercise plan specific for you. Please send me a screenshot of the plans you will generate Meal to include lean meat (beef, fish, pork, turkey, chicken), or bulgarian yogurt, or egg whites, or beans with a salad with olive oil and fruits (berries, pears, apples, kiwi). Avoid salt, breads, potatoes, rice, pasta, desserts. ?3. If you choose shakes, each shake would be drunk slowly, like coffee in a period of 2 hours. ?4. If you choose bars, cut each bar in 4 pieces and eat each piece in 30min ?to make each bar last 2 hours. ?5. I emphasized the importance of measuring accurately the food portion and measure it when serving the food in plate ?6. The meal portions include a specific number of forks of meat and salad. You always eat the meat portion but you can replace up to half of salad/vegetables portion with rice, potatoes or pasta, or a fruit ?if you like. The less you do it the better weight loss will be. ?7. One full-size fork is what it can be scooped on the fork without falling aside and not what can be bit with the fork. Use regular forks like those you find in a typical restaurant. ?8.? Please buy the body composition scale we discussed and send me weight measurements as soon as possible and then once a week. Always include your diet and exercise plan. 9. The best exercise choice would be to use your treadmill at home that can track calories. You can create and exercise plan with the [employer] sarah. ?10.?It is important of avoiding and for at least 18 months postoperatively and has been discussed at the infosession. ?11. Goal is to lose at least 1.5-2lbs per week ?12. Goal to lose 10% of your weight before surgery, which is about 25lbs. Ultimate weight goal: 225lbs before surgery 13. Please follow the diet plan exactly without any change. If you don't like something about the plan or you feel hungry you need to communicate with me so I can help you revise the plan. You should not change the plan yourself. 14. To be scheduled for EGD to assess the stomach's anatomy. The possibility of biopsies was discussed. Patient needs to avoid use of NSAIDs and aspirin for 1 week prior to EGD. You must be on liquids only the day before your endoscopy. Risks of perforation and bleeding was discussed with the patient. This will be an outpatient procedure with IV sedation. Orders: Orders H Pylori Breath Test Today E66.01 - Morbid (severe) obesity due to excess calories, I10 - Essential (primary) hypertension Complete Blood Count Auto Diff Today E66.01 - Morbid (severe) obesity due to excess calories, I10 - Essential (primary) hypertension Lipid Panel Today E66.01 - Morbid (severe) obesity due to excess calories, I10 - Essential (primary) hypertension Vitamin B12 and Folate Today E66.01 - Morbid (severe) obesity due to excess calories, I10 - Essential (primary) hypertension Zinc Today E66.01 - Morbid (severe) obesity due to excess calories, I10 - Essential (primary) hypertension Vitamin B1 Today E66.01 - Morbid (severe) obesity due to excess calories, I10 - Essential (primary) hypertension Ferritin Today E66.01 - Morbid (severe) obesity due to excess calories, I10 - Essential (primary) hypertension FL upper GI w air Today E66.01 - Morbid (severe) obesity due to excess calories, I10 - Essential (primary) hypertension Insulin Today E66.01 - Morbid (severe) obesity due to excess calories, I10 - Essential (primary) hypertension Hemoglobin A1c Today E66.01 - Morbid (severe) obesity due to excess calories, I10 - Essential (primary) hypertension IRON PROFILE Today E66.01 - Morbid (severe) obesity due to excess calories, I10 - Essential (primary) hypertension Comprehensive Met. Panel Today E66.01 - Morbid (severe) obesity due to excess calories, I10 - Essential (primary) hypertension C Reactive Protein Today E66.01 - Morbid (severe) obesity due to excess calories, I10 - Essential (primary) hypertension Vitamin A Today E66.01 - Morbid (severe) obesity due to excess calories, I10 - Essential (primary) hypertension TSH reflex Free T4 Today E66.01 - Morbid (severe) obesity due to excess calories, I10 - Essential (primary) hypertension Vitamin D 25-OH Total Today E66.01 - Morbid (severe) obesity due to excess calories, I10 - Essential (primary) hypertension US abdomen comp w elastography Today E66.01 - Morbid (severe) obesity due to excess calories, I10 - Essential (primary) hypertension XR chest 2V Today E66.01 - Morbid (severe) obesity due to excess calories, I10 - Essential (primary) hypertension ECG 12 lead EKG Today E66.01 - Morbid (severe) obesity due to excess calories, I10 - Essential (primary) hypertension Referrals Behavioral Health Referral E66.01 - Morbid (severe) obesity due to excess calories, I10 - Essential (primary) hypertension Nutrition/Dietitian Referral E66.01 - Morbid (severe) obesity due to excess calories, I10 - Essential (primary) hypertension
[2024-10-29 10:55] VITALS: BMI 40.4
== END 2024-10-29 11:15 | disposition home or self-care (01) ==
LOC: HO.HBS 08:31
PROVIDERS: PCP Student in an Organized Health Care Education/Training Program; Visit Provider Surgery
DX: E66.01 Morbid (severe) obesity due to excess calories (principal)
CPT/HCPCS: 99203

== ENCOUNTER → 2024-10-29 08:31 | Outpatient (BNVA) | payer OTHER, SELFPAY | PROVIDERS: PCP Student in an Organized Health Care Education/Training Program; Visit Provider Surgery ==

== ENCOUNTER 2024-11-02 07:20 | Outpatient (REF) | payer OTHER, SELFPAY ==
--- NOTE | ~2024-11-02 | XR_ITS ---
EXAMINATION: XR CHEST 2 VIEWS HISTORY: E66.01 - Morbid (severe) obesity due to excess calories COMPARISON: There are no prior studies for comparison. FINDINGS: PA and lateral views of the chest are submitted. The lungs are expanded and clear. There is no pleural effusion, pneumothorax, or pulmonary vascular congestion. The heart is normal in size. The bones are intact. XR/XR chest 2V IMPRESSION: Clear lungs. Electronically signed by: Kendall Doherty MD 11/02/2024 08:16 AM EDT
--- NOTE | 2024-11-02 07:37 | ECG_ITS ---
Test Reason : e66.1 Blood Pressure : */* mmHG Vent. Rate : 83 BPM Atrial Rate : 83 BPM P-R Int : 118 ms QRS Dur : 82 ms QT Int : 374 ms P-R-T Axes : 9 60 54 degrees QTcB Int : 439 ms Normal sinus rhythm Normal ECG No previous ECGs available Referred By: Eduard Tesfaye Electronically Signed By: SUSAN DILLON MD
[2024-11-02 07:57] LABS: MANUAL DIFF FLAG NO
[2024-11-02 08:10] LABS: Basophils Percent Auto 0.6 % (0-2); Eosinophils Absolute Auto 0.1 X10*3/uL (0.0-0.4); Eosinophils Percent Auto 2.3 % (0-4); Hematocrit 39.9 % (37.0-47.0); Hemoglobin 13.9 g/dl (12.0-16.0); Imm Gran Abs Auto 0.01 X10*3/uL (0.00-0.03); Imm Gran Pct Auto 0.2 % (0.0-0.4); Lymphocytes Absolute Auto 1.2 X10*3/uL (1.2-4.9); Lymphocytes Percent Auto 25.7 % (20-40); Mean Corpuscular HGB Conc 34.8 g/dl (31.0-35.0); Mean Corpuscular Hemoglobin 31.3 pg (27.0-33.0); Mean Corpuscular Volume 89.9 fL (80.0-98.0); Mean Platelet Volume 9.7 fL (9.4-12.3); Monocytes Absolute Auto 0.4 X10*3/uL (0.1-1.2); Monocytes Percent Auto 9.2 % (2-11); Platelet Count 220 X10*3/uL (160-400); Red Blood Count 4.44 X10*6/uL (4.20-5.50); White Blood Count 4.8 X10*3/uL (4.8-10.8)
[2024-11-02 09:01] LABS: Alanine Aminotransferase 39 U/L (0-31); Albumin Level 4.7 g/dL (3.5-5.0); Alkaline Phosphatase 47 U/L (39-117); Anion Gap 12 (12-20); Aspartate Amino Transferase 31 U/L (5-31); Bilirubin Total 1.5 mg/dL (0.0-1.0); Blood Urea Nitrogen 21 mg/dL (9-16); C Reactive Protein 0.32 mg/dL (< or = 0.50); Calcium 9.5 mg/dL (8.4-10.2); Carbon Dioxide 26 mmol/L (22-29); Chloride 106 mmol/L (96-108); Cholesterol 203 mg/dL (<200); Estimated Glomerular Filt Rate > 60; Glucose Random 94 mg/dL (60-115); HDL Cholesterol 53 mg/dL (>40); Iron 90 mcg/dL (30-160); LDL Cholesterol Calculated 122 mg/dL (<100); Percent Iron Saturation 29 % (15-50); Sodium 140 mmol/L (135-145); Total Iron Binding Capacity 313 mcg/dL (228-428); Total Protein 7.5 g/dL (6.5-8.0); Triglycerides 142 mg/dL (<150); Unsaturated Iron Binding 223 ug/dL
[2024-11-02 09:02] LABS: Estimated Average Glucose 91 mg/dL; Hemoglobin A1C 107.2261 umol/L; Hemoglobin A1c % 4.8 % (<6.0); Total Hemoglobin (HGBA1C) 3711.3057 umol/L
[2024-11-02 09:26] LABS: Folate 13.5 ng/mL (> or = 4.0); Vitamin B12 531 pg/mL (200-900)
[2024-11-02 09:31] LABS: Ferritin 155 ng/mL (10-122); TSH reflex Free T4 1.35 uIU/mL (0.32-4.0); Vitamin D 25-OH Total 28.5 ng/mL (>30)
[2024-11-02 11:13] LABS: Insulin 17 uU/mL (2-29)
[2024-11-05 00:09] LABS: Vitamin A 60 mcg/dL (38-98)
[2024-11-05 05:03] LABS: Zinc 65 mcg/dL (60-130)
[2024-11-07 13:43] LABS: Vitamin B1 10 nmol/L (8-30)
== END 2024-11-02 07:21 | disposition home or self-care (01) ==
LOC: HO.XRAY 07:20
PROVIDERS: PCP Student in an Organized Health Care Education/Training Program; Visit Provider Surgery
DX: E66.01 Morbid (severe) obesity due to excess calories (principal); I10 Essential (primary) hypertension; Z13.1 Encounter for screening for diabetes mellitus
CPT/HCPCS: 36415; 71046; 80053; 80061; 82306; 82607; 82728; 82746; 83036; 83525; 83540; 84425; 84443; 84590; 84630; 85025; 86140; 93005

== ENCOUNTER → 2024-11-02 07:37 | Outpatient (BNV) | payer OTHER, SELFPAY | PROVIDERS: PCP Student in an Organized Health Care Education/Training Program; Visit Provider Internal Medicine Cardiovascular Disease | DX: E66.1 Drug-induced obesity (principal) | CPT/HCPCS: 93010 ==

== ENCOUNTER → 2024-11-02 07:55 | Outpatient (BNV) | payer OTHER, SELFPAY | PROVIDERS: PCP Student in an Organized Health Care Education/Training Program; Visit Provider Radiology Diagnostic Radiology | DX: E66.01 Morbid (severe) obesity due to excess calories (principal) | CPT/HCPCS: 71046 ==

== ENCOUNTER 2024-11-18 07:23 | Day surgery (SDC) | payer OTHER, SELFPAY ==
--- NOTE | 2024-11-16 15:08 | HO.ANESPROP2 ---
HPI - Anesthesia Eval Consult details Narrative: 39yo F for Upper Endoscopy BMI 40.4 PMFSH Active Problems Active Problems: All Active Problems Vitamin D deficiency (Acute) Morbid obesity (Acute) Hypertension (Acute) Other mixed anxiety disorders (Acute) Other specified persistent mood disorders (Acute) Other impulse disorders (Acute) Right foot sprain (Acute) Attention and concentration deficit (Acute) MARK ANTHONY (generalized anxiety disorder) (Acute) MDD (major depressive disorder), recurrent severe, without psychosis (Acute) Past Medical History Medical History Morbid obesity Hypertension Fatty liver Chronic headaches GERD (gastroesophageal reflux disease) High triglycerides IBS (irritable bowel syndrome) PCOS (polycystic ovarian syndrome) Family History Family History Mother No problems noted. Father TIA (transient ischemic attack) Depression Anxiety Daughter No problems noted. Daughter No problems noted. Surgical History Surgical History History of bladder surgery Social History Social History Household Members: Family Alcohol intake: never Comment: DC 07/16/24 Patient Tobacco Use Status: Former Tobacco user Current occupational status: employed Meds Allergies Allergy/AdvReac Type Severity Reaction Status Date / Time metformin Allergy Diarrhea Verified 10/29/24 10:43 shellfish derived Allergy Diarrhea, Verified 10/29/24 10:43 vomiting, nausea. Home Medications ?Medication ?Instructions ?Recorded ?Confirmed ?Last Taken ?Type doxycycline hyclate 60 mg 60 mg PO DAILY PRN Flare up acne. 05/21/24 10/29/24 Unknown History tablet,delayed release (Doryx MPC) spironolactone 50 mg tablet 50 mg PO BID 05/21/24 10/29/24 06/25/24 08:00 History bupropion HCl 300 mg 24 hr tablet, 300 mg PO DAILY 10/18/24 10/29/24 Unknown History extended release cariprazine 1.5 mg capsule 1.5 mg PO DAILY 10/29/24 10/29/24 Unknown History (Florencia) Assessment and Plan Assessment Anesthesia Assessment: Chart Reviewed
[2024-11-18 07:42] VITALS: BP 134/87; PULSE 98; RESP 20; TEMP 36.4; O2SAT 98; BMI 38.4
[2024-11-18 08:00] LABS: UPreg QC Valid YES; Urine Pregnancy NEGATIVE (NEGATIVE)
[2024-11-18] MEDS: Lactated Ringers 1,000 ML 50 ML IVCONT (08:00)
--- NOTE | 2024-11-18 08:22 | MHC.SHP ---
Pre-Procedural Eval Section A - 24 Hr Update-Section A only Date of Service: 11/18/24 The patient is an INPATIENT: No The patient has been examined within 24 hours of the surgical procedure. The History & Physical has been completed within 30 days and I have reviewed it.: Yes Section B - Complete if H&P > 30 days Chief Complaint: Morbid (severe) obesity due to excess calories Relevant Family History (Specify if Yes): No Relevant Social History: None Present Medications: None Medical History: No relevant PMH History of Previous Operations: No relevant previous surgery Allergies: Allergies Allergy/AdvReac Type Severity Reaction Status Date / Time metformin Allergy Diarrhea Verified 10/29/24 10:43 shellfish derived Allergy Diarrhea, Verified 10/29/24 10:43 vomiting, nausea. Review of Systems Sugical H&P ROS: Negative: Constitution, Cardiovascular, Respiratory, Neurological, Psychiatric, Hem-Onc, Allergic/Immunologic, Gastrointestinal, Genitourinary, Musculoskeletal, Integumentary, Endocrine and Eyes/Ears/Nose/Throat Exam Surgical H&P Exam: Normal: HEENT, Normal: Heart, Normal: Lungs, Normal: Extremities, Normal: Abdomen, Normal: Skin and Normal: Neurological Plan Diagnosis/Plan: Unchanged (EGD to assess the stomach's anatomy. Risks of bleeding and perforation were discussed with the patient and she is in agreement with the plan.) I have reviewed the history and physical and performed a pertinent physical examination on my patient. No changes have occurred unless specified. Time Spent With Patient Time: Total time managing care of this patient today ____ minutes.
--- NOTE | 2024-11-18 08:24 | PM.OP ---
Brief Operative Note Date of Service: 11/18/24 Pre-op diagnosis: Morbid obesity Post-op diagnosis: same Procedure: PROCEDURE DATE: PREOPERATIVE DIAGNOSIS: Morbid obesity POSTOPERATIVE DIAGNOSIS: ?Same as above. 1) small hiatal hernia PROCEDURE: [id number] with biopsies Surgeon: ?Javi Tesfaye M.D.. Ph.D. Adjunct Communications Faculty Member: None ? Anesthesia: IV sedation Estimated blood loss: ?Minimal FINDINGS AND PROCEDURE: ? OPERATIVE INDICATIONS: ?The patient is a 39 year old female known to me who is interested in bariatric surgery. Based on this information I recommended an upper endoscopy to evaluate the patient's symptoms. Risks and complications of the surgery were discussed with the patient in advance particularly the possibility of perforation or bleeding that may require surgical intervention. The patient understood the risks and was in agreement with the plan. ? PROCEDURE: After informed consent was obtained by the patient, the patient was ?transferred to the Operating Room and was placed in the supine position.? After successful induction of IV sedation, a mouth block was inserted and the patient was placed in the left lateral decubitus position. An upper endoscopy was performed next, the oropharynx and esophagus appeared within the normal limits. There was a small 2cm hiatal hernia. The z-line was smooth. Two biopsies were obtained from the distal esophagus 2-3 cm proximal to the GE junction and two additional biopsies from the GE junction. The stomach was entered and it appeared to be of normal size. There was no gastritis. There was no stricture or ulcer. A biopsy was obtained from the gastric fundus and the antrum. No significant bleeding was noted from any of the biopsy sites. Retroflexion of the scope confirmed the presence of a small diaphragmatic hernia. The scope was then advanced into the duodenum which appeared to be normal as well. At that point the duodenum ?and the stomach were decompressed and the scope was withdrawn from the patient's mouth. The patient extubated and was transferred in stable condition to the Recovery Room for further care. I was present and performed all steps of the procedure. There were no residents to assist with this case. Javi Tesfaye M.D., Ph.D. Surgeon: Eduard Tesfaye MD Anesthesia: MAC Was an Adjunct Communications Faculty Member used for this Procedure?: No Estimated blood loss (mL): 0 IV fluids (mL): 400 Urine output (mL): 0 (No Liz to record output) Pathology: other (1) antrum x1, 2) fundus x1, 3) GE junction x2, 4) distal esophagus x2) Condition: stable Disposition: PACU
--- NOTE | 2024-11-18 08:44 | P.CONAN_ITS ---
[facility] Active Problems Active Problems: All Active Problems Vitamin D deficiency (Acute) Morbid obesity (Acute) Hypertension (Acute) Other mixed anxiety disorders (Acute) Other specified persistent mood disorders (Acute) Other impulse disorders (Acute) Right foot sprain (Acute) Attention and concentration deficit (Acute) MARK ANTHONY (generalized anxiety disorder) (Acute) MDD (major depressive disorder), recurrent severe, without psychosis (Acute) Past Medical History Medical History Morbid obesity Hypertension Fatty liver Chronic headaches GERD (gastroesophageal reflux disease) High triglycerides IBS (irritable bowel syndrome) PCOS (polycystic ovarian syndrome) Functional capacity: independent ambulation Patient : No Family History Family History Mother No problems noted. Father TIA (transient ischemic attack) Depression Anxiety Daughter No problems noted. Daughter No problems noted. Family history of problems with anesthesia: No Surgical History Surgical History History of bladder surgery History of Problems with Anesthesia: No Social History Social History Household Members: Family Alcohol intake: never Comment: FRANNIE 07/16/24 Patient Tobacco Use Status: Former Tobacco user Have you been hit, kicked, punched, or otherwise hurt by someone within the past year? If so, by whom?: No Are you DNR?: No Advance Directives: No Advance Directives Information Provided: Yes Current occupational status: employed Meds Allergies Allergy/AdvReac Type Severity Reaction Status Date / Time metformin Allergy Diarrhea Verified 10/29/24 10:43 shellfish derived Allergy Diarrhea, Verified 10/29/24 10:43 vomiting, nausea. Active Medications: Current Medications Lactated Ringer's (Lr) 1,000 mls @ 50 mls/hr IVCONT .Q20H ZEB Last Admin: 11/18/24 08:00 Dose: 50 mls/hr Home Medications ?Medication ?Instructions ?Recorded ?Confirmed ?Last Taken ?Type doxycycline hyclate 60 mg 60 mg PO DAILY PRN Flare up acne. 05/21/24 10/29/24 Unknown History tablet,delayed release (Doryx MPC) spironolactone 50 mg tablet 50 mg PO BID 05/21/24 10/29/24 06/25/24 08:00 History bupropion HCl 300 mg 24 hr tablet, 300 mg PO DAILY 10/18/24 10/29/24 Unknown History extended release cariprazine 1.5 mg capsule 1.5 mg PO DAILY 10/29/24 10/29/24 Unknown History (Florencia) Exam Height,Weight and Vital Signs: Height 5 ft 6 in Weight 107.955 kg Last Vital Signs Temp 97.5 F 11/18/24 07:42 Pulse 98 11/18/24 07:42 Resp 20 11/18/24 07:42 BP 134/87 11/18/24 07:42 Pulse Ox 98 11/18/24 07:42 O2 Del Method Room Air 11/18/24 07:42 Pertinent Lab Results Pertinent Lab Results: Laboratory Tests 11/18/24 07:35 Urine Test NEGATIVE Airway Mallampati Class: III TM Dist: >3cm Neck ROM: Full Heart: RRR Lungs: CTA Assessment and Plan Assessment Anesthesia Assessment: Anesthesia Plan Discussed Final Anesthetic Review Family History of Problems with Anesthesia: No History of Problems with Anesthesia: No ASA Class: III Final Preanesthetic Review: Meds/Allgs Chart Reviewed, Consent Obtained/Reviewed and Anes Risks/Benef Reviewed Patient Risk: Intermediate Procedure Risk: Low Anesthetic Plan Anesthetic Plan: MAC: Disposition: Standard PACU
[2024-11-18 08:54] VITALS: BP 115/60; PULSE 84; RESP 16; TEMP 36.5; O2SAT 96
[2024-11-18 09:08] VITALS: BP 113/55; PULSE 89; RESP 16; TEMP 36.5; O2SAT 98
--- NOTE | 2024-11-18 10:31 | HO.POSTANES ---
Post Anesthesia Evaluation Post Anesthesia Evaluation Date of Service: 11/18/24 Vital Signs: Vital Signs Temp Pulse Resp BP Pulse Ox O2 Del Method 11/18/24 09:08 97.7 F 89 16 113/55 L 98 Room Air 11/18/24 08:54 97.7 F 84 16 115/60 96 Room Air 11/18/24 07:42 97.5 F 98 20 134/87 98 Room Air Anesthesia: Monitored Mental Status: Awake Pain Control: Satisfactory Nausea/Vomiting: None Hydration: Adequate Anesthesia-Related Issues: No Anes. Related Issues
== END 2024-11-18 09:38 | disposition home or self-care (01) ==
PROVIDERS: Nurse Practitioner; PCP Student in an Organized Health Care Education/Training Program; Visit Provider Surgery
PROC: 0DJ08ZZ Inspection of Upper Intestinal Tract, Via Natural or Artificial Opening Endoscopic (ICD-10-PCS; CPT 43235; principal; 2024-11-18 08:40)
DX: E66.01 Morbid (severe) obesity due to excess calories (principal); Z68.41 Body mass index [BMI] 40.0-44.9, adult; K29.50 Unspecified chronic gastritis without bleeding; K44.9 Diaphragmatic hernia without obstruction or gangrene; K21.9 Gastro-esophageal reflux disease without esophagitis; K76.0 Fatty (change of) liver, not elsewhere classified; K58.9 Irritable bowel syndrome, unspecified; I10 Essential (primary) hypertension; R51.9 Headache, unspecified; E28.2 Polycystic ovarian syndrome; E78.1 Pure hyperglyceridemia; Z79.899 Other long term (current) drug therapy; Z88.8 Allergy status to other drugs, medicaments and biological substances; Z98.890 Other specified postprocedural states; Z87.891 Personal history of nicotine dependence
CPT/HCPCS: 43239; 81025; 88305; 88313; 88342; J2003; J2704

== ENCOUNTER → 2024-11-18 07:23 | Outpatient (BNV) | payer OTHER, SELFPAY | PROVIDERS: PCP Student in an Organized Health Care Education/Training Program; Visit Provider Surgery | DX: K44.9 Diaphragmatic hernia without obstruction or gangrene (principal) | CPT/HCPCS: 43239 ==

== ENCOUNTER 2024-11-24 08:46 | Outpatient (AMB) | payer OTHER, SELFPAY ==
--- NOTE | 2024-11-24 08:46 | MHC.WMTHER ---
Intake Intake Visit Reasons: TV BH Intake Allergies metformin Allergy (Verified 10/29/24 10:43) Diarrhea shellfish derived Allergy (Verified 10/29/24 10:43) Diarrhea, vomiting, nausea. [facility] Medical History Morbid obesity Hypertension Fatty liver Chronic headaches GERD (gastroesophageal reflux disease) High triglycerides IBS (irritable bowel syndrome) PCOS (polycystic ovarian syndrome) Surgical History History of bladder surgery Family History Mother No problems noted. Father TIA (transient ischemic attack) Depression Anxiety Daughter No problems noted. Daughter No problems noted. Social History Household Members: Family Alcohol intake: never Comment: FRANNIE 07/16/24 Patient Tobacco Use Status: Former Tobacco user Current occupational status: employed Behavioral Health Assessment Weight Management Therapy Therapy Notes Details The patient is a 39-year-old female presenting for an initial visit to begin the behavioral health assessment as part of the surgical weight loss program. She reports independently finding and reaching out to the program after conducting her own research on surgical weight loss options in the area. Presenting Concerns Referral Source WMP provider Reason for referral Completion of behavioral health assessment as part of process for weight-loss surgery. Precipitating Event Obesity. Living Situation Current Living Situation Own At risk of losing current housing? No Satisfied with current living situation? Yes Comments PT lives with her and 2 children. Food/Weight/Diet Expectations of change PT started the program on 10/29/2024 at 250Lbs and the goal to lose 10% of her weight before surgery, which is about 25lbs. Ultimate weight goal: 225lbs before surgery. Her most recent weight as of 11/20/2024 was 236Lbs PT is implementing the following: Current meal plan: PT uses [employer] site, and has a combination of shakes/bars and 1-2 meals at day. Exercise plan: Stationary bike, for [id number] days at week. Scale: yes. Communication with providers: Saturdays. History/Relationship with food Example of meals before starting the program: Breakfast: Lunch: Dinner: Snacks: Drinks/Liquids: History/Relationship with weight In the last 10 years, the patient's Lowest weight was and highest Social History Family history and relationship PT is for 13 years, they have 2 children and her also has a daughter who is 17 y/o. PT has 2 sisters. They have a good relationship. Parents when she was 11 years old, her mom re-, and she has 2 older step brothers. her father re- and they're are several step-siblings but they're not close. PT is closer to her mother than to her father, but her father is there if she reaches out. 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 They are 8 and 3. Developmental history and status Denies any learning disabilities or need for an IEP/504plan. However, Pt reports a Hx of social anxiety since early in life. Social support Sisters, , mother. Some friends. Community support providers. Education Highest grade completed Bachelors in Nursing. Preferred learning style Learn by doing and Visual Currently enrolled in educational program? No Interested in further educational program? 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 Employment Employment Status [employer] (Starting this new job on Friday.) Wants help to find employment? No Meaningful activities She enjoys being outside, read, go on hikes, watching Tv, going to the movies, however she doesn't engage on these as much as she wishes. Financial Situation Describe current financial situation Comfortable and Occasional struggle Financial assistance? None Service Service? No Mental Health and Addiction Treatment Current/Past substance abuse? Yes Comments Alcohol: HEavy alcohol use on her 's. Stopped totally in . Before was drinking couple times at month 0-3 drinks at the time. Cigarettes/Tobacco: quit 10 years ago. None currently. Vaping: None. Cannabis/Edibles: None currently. Did as a teenager caused worse anxiety. PT did Cocaine on her ' socially only. Current/Past addictive behavior concerns? No Psychiatric history The patient currently attends biweekly counseling with Justyna Escobedo, [facility], in [place]. Her psychiatric care is managed by Dr. Heydi Alfredo, DNP, [facility], at [facility]. She carries diagnoses of anxiety, depression, PTSD, and mood disorder. Current medications include: -Bupropion 300 mg, once daily -Lamotrigine ER 250 mg, once daily The patient is undergoing ongoing medication adjustments due to limited effectiveness and side effects from previous trials. She reports current struggles with anxiety and anger, which intensified following a distressing incident at a previous job. As a result, she participated in a Partial Hospitalization Program (PHP) at [facility] from May 2024 to July 2024. Since completing PHP, she has continued outpatient care and is working with her providers to stabilize her symptoms. She disclosed a history of inpatient psychiatric hospitalization at age 22 for severe depression, initially without suicidal ideation or self-harm. However, she experienced a suicide attempt shortly after discharge and was readmitted. She remained stable for several years thereafter. In April 2024, she began experiencing intermittent mental health challenges and was approved for FMLA. Questionnaires PHQ-9 Over the last 2 weeks, how often have you been bothered by any of the following problems? 1. Little interest or pleasure in doing things: several days 2. Feeling down, depressed, or hopeless: several days 3. Trouble falling or staying asleep, or sleeping too much: not at all 4. Feeling tired or having little energy: nearly every day 5. Poor appetite or overeating: nearly every day 6. Feeling bad about yourself - or that you are a failure or have let yourself or your family down: nearly every day 7. Trouble concentrating on things, such as reading the newspaper or watching television: nearly every day 8. Moving or speaking so slowly that other people could have noticed. Or the opposite - being so fidgety or restless that you have been moving around a lot more than usual: not at all 9. Thoughts that you would be better off or of hurting yourself in some way: not at all Total score: 14 Depression Screening Interpretation: Positive (From new PT pack.) Depression Screening Follow-up: Existing condition and In treatment Depression Screening Done: Yes Source: Developed by Drs. Kendall Castellanos, Yane Storey, Pato Serrano and colleagues, with an educational elda from [employer]. Binge Eating Scale Group 1 A. I don't feel self-conscious about my wt. or body size when I'm with others. B. I feel concerned about how I look to others, but it normally does not make me fell disappointed with myself C. I do get self-conscious about my appearance and wt. which makes me feel disappointed in myself. D. I feel very self-conscious about my wt. and frequently I feel intense shame and disgust for myself. I try to avoid social contacts because of my self-consciousness. Response Group 1: C Group 2 A. I don't have any difficulty eating slowly in the proper manner. B. Although I seem to gobble down foods, I don't end up feeling stuffed because of eating to much. C. At times, I tend to eat quickly and then, I feel uncomfortably full afterwards. D. I have the habit of bolting down my food, without really chewing it. When this happens I usually feel uncomfortably stuffed because I've eaten to much. Response Group 2: C Group 3 A. I feel capable to control my eating urges when I want to. B. I feel like I have failed to control my eating more than the average person. C. I feel utterly helpless when it comes to feeling in control of my eating urges. D. Because I feel so helpless about controlling my eating I have become very desperate about trying to get control. Response Group 3: D Group 4 A. I don't have the habit of eating when I'm bored. B. I sometimes eat when I'm bored, but often I'm able to get busy and get my mind off food. C. I have a regular habit of eating when I'm bored, but occasionally, I can use some other activity to get my mind off eating. D. I have a strong habit of eating when I'm bored. Nothing seems to help me breath the habit. Response Group 4: D Group 5 A. I'm usually physically hungry when I eat something. B. Occasionally, I eat something on impulse even though I really am not hungry. C. I have the regular habit of eating foods, that I might not really enjoy, to satisfy a hungry feeling even though physically, I don't need the food. D. Although I'm not physically hungry, I get a hungry feeling in my mouth that only seems to be satisfied when I eat a food, like sandwich, that fills my mouth. Sometimes, when I eat the food to satisfy my mouth hunger, I then spit the food out so I won't gain weight. Response Group 5: C Group 6 A. I don't feel any guilt or self-hate after I overeat. B. After I overeat, occasionally I feel guilt or self-hate. C. Almost all the time I experience strong guilt or self-hate after I overeat. Response Group 6: B Group 7 A. I don't lose total control of my eating when dieting even after periods when I overeat. B. Sometimes when I eat a forbidden food on a diet, I feel like I blew it and eat even more. C. Frequently, I have the habit of saying to myself, I've blown it now, why not go all the way, when I overeat on a diet. When that happens I eat more. D. I have a regular habit of starting a strict diets for myself but I break the diets by going on an eating binge. My life seems to be either a feast or famine. Response Group 7: D Group 8 A. I rarely eat so much food that I feel uncomfortably stuffed afterwards. B. Usually about once a month, I each such a quantity of food, I end up feeling very stuffed. C. I have regular periods during the month when I eat large amounts of food, either at mealtime or at snacks. D. I eat so much food that I regularly feel quite uncomfortable after eating and sometimes a bit nauseous. Response Group 8: D Group 9 A. My level of calorie intake does not go up very high or go down very low on a regular basis. B. Sometimes after I overeat, I will try to reduce my caloric intake to almost nothing to compensate for the excess calories I've eaten. C. I have a regular habit of overeating during the night. It seems that my routine is not to be hungry in the morning but overeat in the evening. D. In my adult years, I have had week-long periods where I practically starve myself. This follows periods when I overeat. It seems I live a life of either feast or famine. Response Group 9: C Group 10 A. I usually am able to stop eating when I want to. I know when enough is enough. B. Every so often, I experience a compulsion to eat which I can't seem to control. C. Frequently, I experience strong urges to eat which I seem unable to control, but at other times I can control my eating urges. D. I feel incapable of controlling urges to eat. I have a fear of not being able to stop eating voluntarily. Response Group 10: D Group 11 A. I don't have any problem stopping eating when I feel full. B. I usually can stop eating when I feel full but occasionally overeat leaving me feeling uncomfortably stuffed. C. I have a problem stopping eating once I start and usually I feel uncomfortably stuffed after I eat a meal. D. Because I have a problem not being able to stop eating when I want, I sometimes have to induce vomiting to relieve my stuffed feeling. Response Group 11: C Group 12 A. I seem to eat just as much when I'm with others, Family social gatherings as when I'm by myself. B. Sometimes, when I'm with other persons, I don't eat as much as I want to eat because I'm self-conscious about my eating. C. Frequently, I eat only a small amount of food when others are present, because I'm very embarrassed about my eating. D. I feel so ashamed about overeating that I pick times to overeat when I know no one will see me. I feel like a closet eater. Response Group 12: B Group 13 A. I eat three meals a day with only an occasional between meal snack. B. I eat 3 meals a day, but I also normally snack between meals. C. When I am snacking heavily, I get in the habit of skipping regular meals. D. There are regular periods when I seem to be continually eating, with no planned meals. Response Group 13: B Group 14 A. I don't think much about trying to control unwanted eating urges. B. At least some of the time, I feel my thoughts are pre-occupied with trying to control my eating urges. C. I feel that frequently I spend much time thinking about how much I ate or about trying not to eat anymore. D. It seems to me that most of my waking hours are pre-occupied by thoughts about eating or not eating. I feel like I'm constantly struggling not to eat. Response Group 14: C Group 15 A. I don't think about food a great deal. B. I have strong craving for food but they last only for brief periods of time. C. I have days when I can't seem to think about anything else but food. D. Most of my days seem to be pre-occupied with thoughts about food. I feel like I live to eat. Response Group 15: C Group 16 A. I usually know whether or not I'm physically hungry. I take the right portion of food to satisfy me. B. Occasionally, I feel uncertain about knowing whether or not I'm physically hungry. A these times it's hard to know how much food I should take to satisfy me. C. Even though I might know how many calories I should eat, I don't have any idea what is a normal amount of food for me. Response Group 16: B Binge Eating Score: 33 Score less than 17 Minimal Risk Score between 18-26 Moderate Risk Score between 27-46 High Risk Assessment & Plan Assessment & Plan (1) Unspecified mood [affective] disorder: Code(s): F39 - Unspecified mood [affective] disorder (2) MARK ANTHONY (generalized anxiety disorder): Code(s): F41.1 - Generalized anxiety disorder (3) Pre-bariatric surgery psychological evaluation: Code(s): Z71.89 - Other specified counseling Plan The patient is not yet cleared as the assessment is still in progress. She is scheduled to return in 2?4 weeks to continue evaluation. Next sarah: 12/23/2024 at 11am - Telehealth Telehealth Telehealth Telehealth Platform: [facility] Location of provider rendering services: other Location of patient: address on file Patient Identification confirmed using: Name, : Yes Telehealth method: voice only Patient verbally consented to treatment: Yes Patient verbally consented to billing insurance company: Yes Patient informed of any privacy concerns related to visit: Yes Minutes spent on Phone/Video with Pt.: 51 Coding Level of Care Code New Pt Tele Psy Diag Eval ([id number]) Patient Type New Diagnoses Unspecified mood [affective] disorder F39 MARK ANTHONY (generalized anxiety disorder) F41.1 Pre-bariatric surgery psychological evaluation Z71.89 Time Spent (min) 51 Comment Start: 8:46am, End time: 9 :37am.
== END 2024-11-24 09:39 | disposition home or self-care (01) ==
LOC: HO.HBST 08:46
PROVIDERS: PCP Student in an Organized Health Care Education/Training Program; Visit Provider Counselor Mental Health
DX: F39 Unspecified mood [affective] disorder (principal); F41.1 Generalized anxiety disorder; Z71.89 Other specified counseling
CPT/HCPCS: 90791

== ENCOUNTER 2024-12-23 11:20 | Outpatient (AMB) | payer OTHER, SELFPAY ==
--- NOTE | 2024-12-23 11:12 | A.OFFWM_ITS ---
Intake Intake Visit Reasons: VIDEO BH Intake Part 2 Allergies metformin Allergy (Verified 10/29/24 10:43) Diarrhea shellfish derived Allergy (Verified 10/29/24 10:43) Diarrhea, vomiting, nausea. [facility] Medical History Morbid obesity Hypertension Fatty liver Chronic headaches GERD (gastroesophageal reflux disease) High triglycerides IBS (irritable bowel syndrome) PCOS (polycystic ovarian syndrome) Surgical History History of bladder surgery Family History Mother No problems noted. Father TIA (transient ischemic attack) Depression Anxiety Daughter No problems noted. Daughter No problems noted. Social History Household Members: Family Alcohol intake: never Comment: FRANNIE 07/16/24 Patient Tobacco Use Status: Former Tobacco user Current occupational status: employed Behavioral Health Assessment Weight Management Therapy Therapy Notes Details The patient is a 39-year-old female presenting for a second visit to complete behavioral health assessment as part of the surgical weight loss program. She reports independently finding and reaching out to the program after conducting her own research on surgical weight loss options in the area. The patient is engaged in biweekly therapy with Justyna Escobedo, [facility], and receives psychiatric medication management from Dr. Heydi Alfredo, [facility], BINDERY MACHINE SETTER. Her diagnoses include anxiety, depression, PTSD, and mood disorder. She is currently prescribed bupropion and lamotrigine, with ongoing medication adjustments to address residual symptoms. Although she continues to manage some anxiety and anger related to past stressors, she has remained stable and well-connected to care. She completed a Partial Hospitalization Program (PHP) in early 2024 and has maintained outpatient follow-up since. While she has a history of psychiatric hospitalization in early adulthood, she has demonstrated stability in recent years and has responded well to current treatment. She is coping effectively and presents as a strong candidate for the surgical weight loss program. Presenting Concerns Referral Source WMP provider Reason for referral Completion of behavioral health assessment as part of process for weight-loss surgery. Precipitating Event Obesity. Living Situation Current Living Situation Own At risk of losing current housing? No Satisfied with current living situation? Yes Comments PT lives with her and 2 children. Food/Weight/Diet Expectations of change PT started the program on 10/29/2024 at 250Lbs and the goal to lose 10% of her weight before surgery, which is about 25lbs. Ultimate weight goal: 225lbs before surgery. Her most recent weight as of 11/20/2024 was 236Lbs Weight as of 12/18/2024: 223Lbs PT is implementing the following: Current meal plan: PT uses [employer] site, and has a combination of shakes/bars and 1-2 meals at day. Exercise plan: Stationary bike, for [id number] days at week. Scale: yes. Communication with providers: Saturdays. History/Relationship with food She feels if she starts eating something she has to continue until is gone. tends to over eat, leading to feel super-full and bloated. At times would use food as a reward (ex: after a great week), when stressed (eating more/unconsciously). Hx of skipping meals and then overeating by the end of the day. Example of meals before starting the program: Breakfast: Skip Lunch: leftovers / takeout: Pizza, grinders, burritos, chipotle. Dinner: Pizza, taco medley. If cook at home: tacos, pasta dishes. Snacks: None typically. Drinks/Liquids: Cofee: none. Energy drinks: Celcius, 1x day. Tea: Green tea, once in a while. Water: around 30oz at day. Soda: 1x day. Juice: none. History/Relationship with weight Pt reports she has been heavy most of her life with a sweet toot. She was under 200Ls on her early 20's and as a teenager in doesn't recall her weight but remember she was already buying plus size clothing. In the last 10 years, the patient's Lowest weight was 200Lbs and highest 268Lbs History/Relationship with dieting WW, high protein diet, counting macros, beach body, semaglutide. 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 Binge Eating Do you frequently eat large amounts of food in short periods of time, not feeling physically hungry? No Do you feel out of control when you eat a large amount of food in a short period of time? Yes Do you eat large amounts of food rapidly and typically alone? No Night Eating Do you wake up at least once during the night to eat? No If you wake up in the night, do you find that it is necessary to eat something in order to fall back asleep? No Do you have little or no appetite in the morning and feel very hungry in the evening, often overeating between dinner and when you go to bed? Yes Social History Family history and relationship PT is for 13 years, they have 2 children and her also has a daughter who is 17 y/o. PT has 2 sisters. They have a good relationship. Parents when she was 11 years old, her mom re-, and she has 2 older step brothers. her father re- and they're are several step-siblings but they're not close. PT is closer to her mother than to her father, but her father is there if she reaches out. Parental/Familial property caretaker obligations 2 kids. They are 8 and 3. Developmental history and status Denies any learning disabilities or need for an IEP/504plan. However, Pt reports a Hx of social anxiety since early in life. Social support Sisters, , mother. Some friends. Community support providers. Episcopalian/Spirituality None. Cultural/Ethnic information . Legal Involvement and History Current or historical involvement with the legal system? None. Education Highest grade completed Bachelors in Nursing. Preferred learning style Learn by doing and Visual Currently enrolled in educational program? No Interested in further educational program? 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 Employment Employment Status [employer] Wants help to find employment? No Meaningful activities She enjoys being outside, read, go on hikes, watching Tv, going to the movies, however she doesn't engage on these as much as she wishes. Financial Situation Describe current financial situation Comfortable and Occasional struggle Financial assistance? None Service Service? No Mental Health and Addiction Treatment Current/Past substance abuse? Yes Comments Alcohol: Heavy alcohol use on her 20's. Stopped totally in . Before was drinking couple times at month 0-3 drinks at the time. Cigarettes/Tobacco: quit 10 years ago. None currently. Vaping: None. Cannabis/Edibles: None currently. Did as a teenager caused worse anxiety. PT did Cocaine on her 20' socially only. Current/Past addictive behavior concerns? No Psychiatric history The patient currently attends biweekly counseling with Justyna Escobedo, [facility], in [place]. Her psychiatric care is managed by Dr. Heydi Alfredo, DNP, [facility], at [facility]. She carries diagnoses of anxiety, depression, PTSD, and mood disorder. Current medications include: -Bupropion 300 mg, once daily -Lamotrigine ER 250 mg, once daily The patient is undergoing ongoing medication adjustments due to limited effectiveness and side effects from previous trials. She reports current struggles with anxiety and anger, which intensified following a distressing incident at a previous job. As a result, she participated in a Partial Hospitalization Program (PHP) at [facility] from May 2024 to July 2024. Since completing PHP, she has continued outpatient care and is working with her providers to stabilize her symptoms. She disclosed a history of inpatient psychiatric hospitalization at age 22 for severe depression, initially without suicidal ideation or self-harm. However, she experienced a suicide attempt shortly after discharge and was readmitted. She remained stable for several years thereafter. In April 2024, she began experiencing intermittent mental health challenges and was approved for FMLA. Medical and Physical Health Summary Additional Medical History not covered in history PCOS, Hidradenitis suppurativa. Sexual History concerns None reported Physical exam in the last year? Yes Pain Screening Current pain? No Pain in the last few months? Yes Comments Headaches and hi pain. Medications Is the patient compliant with medications? Yes Does the patient have Boswell Guardian in place? No Does the patient use complimentary health approaches? No Trauma/Abuse History History of trauma? Yes Questionnaires PHQ-9 Over the last 2 weeks, how often have you been bothered by any of the following problems? 1. Little interest or pleasure in doing things: not at all 2. Feeling down, depressed, or hopeless: several days 3. Trouble falling or staying asleep, or sleeping too much: several days 4. Feeling tired or having little energy: more than half the days 5. Poor appetite or overeating: not at all 6. Feeling bad about yourself - or that you are a failure or have let yourself or your family down: not at all 7. Trouble concentrating on things, such as reading the newspaper or watching television: not at all 8. Moving or speaking so slowly that other people could have noticed. Or the opposite - being so fidgety or restless that you have been moving around a lot more than usual: not at all 9. Thoughts that you would be better off or of hurting yourself in some way: not at all Total score: 4 Depression Screening Interpretation: Negative (Lower scores than initial.) Depression Screening Done: Yes 65222 - PHQ-9 Billing: Yes Source: Developed by Drs. Kendall Castellanos, Yane Storey, Pato Serrano and colleagues, with an educational elda from [employer]. Binge Eating Scale Group 1 A. I don't feel self-conscious about my wt. or body size when I'm with others. B. I feel concerned about how I look to others, but it normally does not make me fell disappointed with myself C. I do get self-conscious about my appearance and wt. which makes me feel disappointed in myself. D. I feel very self-conscious about my wt. and frequently I feel intense shame and disgust for myself. I try to avoid social contacts because of my self- consciousness. Response Group 1: C Group 2 A. I don't have any difficulty eating slowly in the proper manner. B. Although I seem to gobble down foods, I don't end up feeling stuffed because of eating to much. C. At times, I tend to eat quickly and then, I feel uncomfortably full afterwards. D. I have the habit of bolting down my food, without really chewing it. When this happens I usually feel uncomfortably stuffed because I've eaten to much. Response Group 2: C Group 3 A. I feel capable to control my eating urges when I want to. B. I feel like I have failed to control my eating more than the average person. C. I feel utterly helpless when it comes to feeling in control of my eating urges. D. Because I feel so helpless about controlling my eating I have become very desperate about trying to get control. Response Group 3: D Group 4 A. I don't have the habit of eating when I'm bored. B. I sometimes eat when I'm bored, but often I'm able to get busy and get my mind off food. C. I have a regular habit of eating when I'm bored, but occasionally, I can use some other activity to get my mind off eating. D. I have a strong habit of eating when I'm bored. Nothing seems to help me breath the habit. Response Group 4: D Group 5 A. I'm usually physically hungry when I eat something. B. Occasionally, I eat something on impulse even though I really am not hungry. C. I have the regular habit of eating foods, that I might not really enjoy, to satisfy a hungry feeling even though physically, I don't need the food. D. Although I'm not physically hungry, I get a hungry feeling in my mouth that only seems to be satisfied when I eat a food, like sandwich, that fills my mouth. Sometimes, when I eat the food to satisfy my mouth hunger, I then spit the food out so I won't gain weight. Response Group 5: C Group 6 A. I don't feel any guilt or self-hate after I overeat. B. After I overeat, occasionally I feel guilt or self-hate. C. Almost all the time I experience strong guilt or self-hate after I overeat. Response Group 6: B Group 7 A. I don't lose total control of my eating when dieting even after periods when I overeat. B. Sometimes when I eat a forbidden food on a diet, I feel like I blew it and eat even more. C. Frequently, I have the habit of saying to myself, I've blown it now, why not go all the way, when I overeat on a diet. When that happens I eat more. D. I have a regular habit of starting a strict diets for myself but I break the diets by going on an eating binge. My life seems to be either a feast or famine. Response Group 7: D Group 8 A. I rarely eat so much food that I feel uncomfortably stuffed afterwards. B. Usually about once a month, I each such a quantity of food, I end up feeling very stuffed. C. I have regular periods during the month when I eat large amounts of food, either at mealtime or at snacks. D. I eat so much food that I regularly feel quite uncomfortable after eating and sometimes a bit nauseous. Response Group 8: D Group 9 A. My level of calorie intake does not go up very high or go down very low on a regular basis. B. Sometimes after I overeat, I will try to reduce my caloric intake to almost nothing to compensate for the excess calories I've eaten. C. I have a regular habit of overeating during the night. It seems that my routine is not to be hungry in the morning but overeat in the evening. D. In my adult years, I have had week-long periods where I practically starve myself. This follows periods when I overeat. It seems I live a life of either feast or famine. Response Group 9: C Group 10 A. I usually am able to stop eating when I want to. I know when enough is enough. B. Every so often, I experience a compulsion to eat which I can't seem to control. C. Frequently, I experience strong urges to eat which I seem unable to control, but at other times I can control my eating urges. D. I feel incapable of controlling urges to eat. I have a fear of not being able to stop eating voluntarily. Response Group 10: D Group 11 A. I don't have any problem stopping eating when I feel full. B. I usually can stop eating when I feel full but occasionally overeat leaving me feeling uncomfortably stuffed. C. I have a problem stopping eating once I start and usually I feel uncomfortably stuffed after I eat a meal. D. Because I have a problem not being able to stop eating when I want, I sometimes have to induce vomiting to relieve my stuffed feeling. Response Group 11: C Group 12 A. I seem to eat just as much when I'm with others, Family social gatherings as when I'm by myself. B. Sometimes, when I'm with other persons, I don't eat as much as I want to eat because I'm self-conscious about my eating. C. Frequently, I eat only a small amount of food when others are present, because I'm very embarrassed about my eating. D. I feel so ashamed about overeating that I pick times to overeat when I know no one will see me. I feel like a closet eater. Response Group 12: B Group 13 A. I eat three meals a day with only an occasional between meal snack. B. I eat 3 meals a day, but I also normally snack between meals. C. When I am snacking heavily, I get in the habit of skipping regular meals. D. There are regular periods when I seem to be continually eating, with no planned meals. Response Group 13: B Group 14 A. I don't think much about trying to control unwanted eating urges. B. At least some of the time, I feel my thoughts are pre-occupied with trying to control my eating urges. C. I feel that frequently I spend much time thinking about how much I ate or about trying not to eat anymore. D. It seems to me that most of my waking hours are pre-occupied by thoughts about eating or not eating. I feel like I'm constantly struggling not to eat. Response Group 14: C Group 15 A. I don't think about food a great deal. B. I have strong craving for food but they last only for brief periods of time. C. I have days when I can't seem to think about anything else but food. D. Most of my days seem to be pre-occupied with thoughts about food. I feel like I live to eat. Response Group 15: C Group 16 A. I usually know whether or not I'm physically hungry. I take the right portion of food to satisfy me. B. Occasionally, I feel uncertain about knowing whether or not I'm physically hungry. A these times it's hard to know how much food I should take to satisfy me. C. Even though I might know how many calories I should eat, I don't have any idea what is a normal amount of food for me. Response Group 16: B Binge Eating Score: 33 Score less than 17 Minimal Risk Score between 18-26 Moderate Risk Score between 27-46 High Risk Assessment & Plan Assessment & Plan (1) Complex posttraumatic stress disorder: Code(s): F43.10 - Post-traumatic stress disorder, unspecified Plan The patient has been cleared from a behavioral health standpoint and can be submitted for insurance approval when ready. The patient will follow up with this provider in three weeks for continued behavioral health support as part of her pre-operative care, and will also engage in ongoing post-operative follow-up to support adjustment and long-term success. Next appointment: 01/12/25 at 11am. Telehealth Telehealth Telehealth Platform: [employer] Location of provider rendering services: other (Home office. [place], [place]) Location of patient: address on file Patient Identification confirmed using: Name, : Yes Telehealth method: video Patient verbally consented to treatment: Yes Patient verbally consented to billing insurance company: Yes Patient informed of any privacy concerns related to visit: Yes Minutes spent on Phone/Video with Pt.: 60 Coding Level of Care Code Established Pt Tele Psytx >53 mins (08104) Patient Type Established Diagnoses Complex posttraumatic stress disorder F43.10 Additional Codes PHQ-9 - 24180 - PHQ-9 Billing: Yes ([id number]) Time Spent (min) 60
== END 2024-12-23 12:12 | disposition home or self-care (01) ==
LOC: HO.HBST 11:20
PROVIDERS: PCP Student in an Organized Health Care Education/Training Program; Visit Provider Counselor Mental Health
DX: F43.10 Post-traumatic stress disorder, unspecified (principal)
CPT/HCPCS: 90837

== ENCOUNTER 2024-12-30 09:00 | Outpatient (REF) | payer OTHER, SELFPAY ==
--- NOTE | ~2024-12-30 | US_ITS ---
EXAMINATION: US COMPLETE ABDOMEN WITH LIVER ELASTOGRAPHY CLINICAL INFORMATION: Obesity secondary to excess calories. COMPARISON: None available. TECHNIQUE: Real-time imaging of the abdominal viscera. Noninvasive ultrasound liver fibrosis assessment is performed using Mark ElastPQ point quantification shear wave elastography (pSWE) with a C5-2 MHz transducer. Multiple elastography samples are obtained. FINDINGS: PANCREAS: The visualized pancreatic head and body are normal in appearance. The remainder of the pancreas is obscured from visualization by the overlying bowel gas. ABDOMINAL AORTA: No aortic aneurysm is seen. INFERIOR VENA CAVA: Visualized portions are normal. LIVER: The liver is normal in size. There is diffusely increased echogenicity. There is no suspicious focal lesion. There is normal contour. There is no intrahepatic biliary ductal dilatation. The right lobe measures 15.2 cm in length. The left lobe measures 7.7 cm in length. Portal flow is towards the liver (hepatopetal). Shear wave liver elastography median stiffness is 1.56 m/s (reference: normal median stiffness is 1.3 m/s or less). IQR/median stiffness to assess sampling precision is 0.22 (reference: good quality data set is IQR/median stiffness of 0.15 or less). GALLBLADDER: The gallbladder is physiologically distended without evidence of stones, sludge, polyps, wall thickening or pericholecystic fluid. COMMON BILE DUCT: Normal in caliber measuring 0.5 cm in diameter. RIGHT KIDNEY: No hydronephrosis. No renal calculi or focal parenchymal lesions. The kidney measures 11.3 cm in maximum dimension. LEFT KIDNEY: No hydronephrosis. No renal calculi or focal parenchymal lesions. The kidney measures 11.4 cm in maximum dimension. SPLEEN: Top normal in size. The spleen measures 12.7 cm in maximum dimension. Normal echogenicity. FREE FLUID: None seen. US/US abdomen comp w elastography IMPRESSION: 1. Mild diffusely increased hepatic echogenicity, most likely mild steatosis. No suspicious focal hepatic lesion. 2. Liver elastography: Although measurements appear to rule out compensated advanced chronic liver disease, there is statistical variability of the sampling which decreases accuracy. 3. Normal bile ducts and gallbladder. 4. Top normal spleen size. 5. Normal kidneys bilaterally. REFERENCE: Society of Radiologists in Ultrasound Liver Stiffness Thresholds (2020): LIVER STIFFNESS THRESHOLDS: *Liver Stiffness equal or less than 1.3 m/s: High probability of being normal. *Liver Stiffness less than 1.7 m/s: In the absence of other known clinical signs, rules out compensated advanced chronic liver disease. *Liver Stiffness 1.7-2.1 m/s: Suggestive of compensated advanced chronic liver disease but need further test for confirmation. *Liver Stiffness over 2.1 m/s: Rules in compensated advanced chronic liver disease. *Liver Stiffness over 2.4 m/s: Suggestive of clinically significant portal hypertension. QUALITY OF DATA SET: *IQR/Median value equal or less than 0.15 implies a quality data set. *IQR/Median value over 0.15 implies a poor quality data set. SIGNIFICANT CHANGE FROM PRIOR EXAM: Significant change if liver stiffness measurement is 10% or greater from prior exam. OTHER CONSIDERATIONS: The stage of liver fibrosis may be overestimated in the setting of acute hepatitis, liver inflammation, elevated liver function tests, hepatic vascular congestion, obstructive cholestasis, non-fasting state, and infiltrative diseases such as amyloidosis and lymphoma. In some patients with NAFLD, the liver stiffness thresholds for compensated advanced chronic liver disease may be lower. In causes other than viral hepatitis and NAFLD, liver stiffness thresholds are not well established. Electronically signed by: Dylan Cantor MD 12/30/2024 09:50 AM EDT
== END 2024-12-30 09:01 | disposition home or self-care (01) ==
LOC: HO.US 09:00
PROVIDERS: PCP Student in an Organized Health Care Education/Training Program; Visit Provider Surgery
DX: E66.01 Morbid (severe) obesity due to excess calories (principal); I10 Essential (primary) hypertension
CPT/HCPCS: 76700; 76981

== ENCOUNTER → 2024-12-30 09:01 | Outpatient (BNV) | payer OTHER, SELFPAY | PROVIDERS: PCP Student in an Organized Health Care Education/Training Program; Visit Provider Radiology Diagnostic Radiology | DX: E66.01 Morbid (severe) obesity due to excess calories (principal) | CPT/HCPCS: 76700 ==

== ENCOUNTER 2025-01-10 08:16 | Outpatient (AMB) | payer OTHER, SELFPAY ==
--- NOTE | 2025-01-09 23:37 | A.OFFVIS_ITS ---
VS Expanded 01/09/25 23:52 Height 5 ft 6 in Weight 214 lb BMI 34.5 Body Fat % 43.8 Body Fat Mass 93.7 Fat Free Mass 120.4 Visceral Fat Rating 16 Body Water % 38.6 Body Water Mass 82.6 Basal Metabolic Rate/Score 1,549 Intake Visit Reasons: TV Pre Op LSG 01/20/25 Allergies metformin Allergy (Verified 01/09/25 23:57) Diarrhea shellfish derived Allergy (Verified 01/09/25 23:57) Diarrhea, vomiting, nausea. Medication List - Last Reconciled 01/09/25 by Eduard Tesfaye MD bupropion HCl XL 300 mg PO DAILY cariprazine (Vraylar) 1.5 mg PO DAILY cholecalciferol (vitamin D3) 125 mcg PO DAILY doxycycline hyclate (Doryx MPC) 60 mg PO DAILY PRN lamotrigine 200 mg (2 x 100 mg) PO DAILY ondansetron 4 mg PO Q12H pantoprazole 40 mg PO DAILY polyethylene glycol 3350 17 grams PO DAILY spironolactone 50 mg PO BID sucralfate 10 mL PO BID HPI HPI TV Pre Op LSG 01/20/25: Details: Start time: 10.30am, End time: 11am I spent 25 minutes speaking with the patient on the phone plus an additional 5 minutes reviewing and updating records for a total of 30 minutes HPI Comments Details: Overall weight loss: 36.4lbs, or 14.5% TBWL Is doing 2 Orgain shakes (1/2 scoop each in 8oz almond milk), 2 Fit Crunch protein bars and one meal (8 forks each) Exercise: treadmill 7 days per for 285 calories per session PFSH Medical History Morbid obesity Hypertension Fatty liver Chronic headaches GERD (gastroesophageal reflux disease) High triglycerides IBS (irritable bowel syndrome) PCOS (polycystic ovarian syndrome) Surgical History History of bladder surgery Family History Mother No problems noted. Father TIA (transient ischemic attack) Depression Anxiety Daughter No problems noted. Daughter No problems noted. Social History Household Members: Family Alcohol intake: never Comment: FRANNIE 07/16/24 Patient Tobacco Use Status: Former Tobacco user Current occupational status: employed Physical Exam Vital Signs: BMI result Body Mass Index 34.5 Telehealth Telehealth Telehealth Platform: Telephone Location of provider rendering services: practice address Location of patient: address on file Patient Identification confirmed using: Name, : Yes Telehealth method: voice only Patient verbally consented to treatment: Yes Patient verbally consented to billing insurance company: Yes Patient informed of any privacy concerns related to visit: Yes Minutes spent on Phone/Video with Pt.: 30 Assessment & Plan Assessment & Plan (1) Obesity: Code(s): E66.9 - Obesity, unspecified Category: Medical Qualifiers: Body mass index: BMI 34.0-34.9 Obesity classification: adult class 1 (BMI 30 - 34.9) Obesity type: due to excess calories Serious obesity comorbidity presence: with serious comorbidity Qualified Code(s): E66.811 - Obesity, class 1; E66.09 - Other obesity due to excess calories; Z68.34 - Body mass index [BMI] 34.0-34.9, adult Plan: 1. Plan for lap sleeve gastrectomy including upper GI endoscopy. All tests has been completed and reviewed and the patient is cleared for the surgery. If diaphragmatic or ventral hernias are present at time of surgery, these will be repaired laparoscopically as well. The surgery does not replace the need to change your lifestlyle which is the cause of the obesity problem. The surgery provides the motivation to try again to change your lifestyle, it reduces the appetite and make the transition to a better lifestyle easier and doubles the amount of weight you would lose compared to doing the lifestyle change without the surgery. You will need to be on a liquid diet with protein shakes for 2 weeks before surgery to maximize weight loss and boost your nutritional status to recover better from surgery and also for the first two weeks after surgery to let the stomach heal before we introduce other foods. After the first 2 weeks we will introduce protein bars and soft foods like scrambled eggs, cottage cheese and yogurt and after the 6th week will introduce meat, fish and cooked vegetables in small amounts. Over time you should be able to eat everything in small amounts. Side effects like nausea, vomiting, heartburn or abdominal pain are not common in the practice unless you are not following in the practice. This operation requires lifetime commitment to following in our practice and communication with me. You will much less weight and experience side effects if you don?t communicate or not following in the practice. Complications are rare and in our practice is about 1/10 of the national average. However, you can develop bleeding that may require transfusion (hasn?t happened for year in the practice), you may from complications (we did not have any deaths in the practice) and infections. Infections are usually a result of breakdown in communication or not understanding or following directions correctly. They are difficult to treat, they can happen during the first 6 weeks, they may require to be in the hospital for weeks or even months, not being able to eat by mouth and you may have drains and surgeries to try and correct the issue. Other risks and complications include possible conversion to an open procedure, leaks, small bowel obstruction, blood clots, cardiac, or pulmonary complications, as skilled nursing complications such as ulcers, insufficient weight loss and vitamin deficiencies. So far she has proven to be an excellent communicator and very compliant with all our directions accomplishing a great weight loss. I believe that she is an excellent candidate and she is ready. 2. Preop prescriptions were provided and explained the purpose of each one. Need to be purchased preop. Start Pantoprazole now as you get it from the pharmacy, 1 pill per day. Sucralfate and Zofran are for after surgery as needed. 3. Bowel prep: please do 7 packets of Miralax mixing each one with a an 8oz glass of water, crystal light, gatorade zero, or propel on 01/18/25 and the same amount on 01/19/25. The Miralax you begin with one packet at a time in 8oz water or crystal light, gatorade zero, or propel as early in the day as you can and you do them back to back until you finish them. Continue the protein shakes during the bowel prep. 4. Needs to purchase 1oz medicine cups . 5. Needs to purchase Children's liquid Tylenol for postop pain control. 6. Avoid aspirin, motrin, Advil, Aleve, Ibuprofen, Naproxyn. Tylenol is OK. 7. She needs to purchase the Celebrate multivitamins from the hospital's gift shop. 8. Will do basic preop blood work-up any day between Friday01/10/25 and Friday01/14/25 fasting for 12 hours and is scheduled to see the Anesthesiologist prior to the day of surgery. 9. Importance of adherence to postop follow-up and recommendations was underscored and she understands that. 10. Stop food and bars as of tomorrow Friday01/10/25 and continue with 3 ORGAIN protein shakes (ONE scoop EACH in 8oz almond milk) at 7am-9am, 10am-12pm and 1pm-3pm and TWO more ORGAIN protein shakes with TWO scoops EACH in 8oz of almond milk at 4pm-6pm and at 7pm-9pm 11. No soups, broths or V8 12. The patient's medical history has been reviewed and they are considered low risk for post op DVT and therefore DVT prophylaxis is not considered necessary. Travel after surgery was reviewed. The patient has not disclosed any travel plans during the first 30 days after surgery and they have been advised that within the first 30 days after surgery any bus, plane, train or car travel over 2 hours in duration is contraindicated due to the possibility of developing blood clots from immobility. Any travel, needs to include periods of ambulation of 10 minutes in duration every 2 hours. Patient was instructed to discuss any plans for travel during this period with their bariatric surgeon. 13. As of tomorrow, please check your blood pressure daily in the morning. If your blood pressure is: Below 120/70: do not take the Spironolactone 121/71 to 130/80: take HALF Spironolactone Over 131/81: take the whole Spironolactone 14. Please take at the day of surgery the following medications: Only the Spironolactone if blood pressure that morning is high enough to justify it based on the parameters above. 15. Stop any control pills and don't use them for one month after surgery 16. Absolutely no smoking or vaping, or marijuana until the surgery and for at least the first 4 weeks. Only nicotine patches are allowed. 17. Send me weight measurements on Friday01/15/25 and then on 01/20/25, the day of surgery before you go to the hospital. 18. Avoid any steroids by mouth for any reason. Let me know if someone prescribes them to you 19. These instructions supersede anything else you read in the handbook, anything you watched in videos or classes or you were told by any other provider. If there is any conflict, you follow the above instructions and nothing else. Orders: Orders Lipid Panel 01/09/25 E66.9 - Obesity, unspecified, I10 - Essential (primary) hy pertension Comprehensive Met. Panel 01/09/25 E66.9 - Obesity, unspecified, I10 - Essential (primary) hypertension Partial Thromboplastin Time 01/09/25 E66.9 - Obesity, unspecified, I10 - Essential (primary) hypertension Prothrombin Time INR 01/09/25 E66.9 - Obesity, unspecified, I10 - Essential (primary) hypertension Insulin 01/09/25 E66.9 - Obesity, unspecified, I10 - Essential (primary) hypertension Complete Blood Count Auto Diff 01/09/25 E66.9 - Obesity, unspecified, I10 - Essential (primary) hypertension C Reactive Protein 01/09/25 E66.9 - Obesity, unspecified, I10 - Essential (primary) hypertension Hemoglobin A1c 01/09/25 E66.9 - Obesity, unspecified, I10 - Essential (primary) hypertension Type and Screen 01/09/25 E66.9 - Obesity, unspecified, I10 - Essential (primary) hypertension TSH reflex Free T4 01/09/25 E66.9 - Obesity, unspecified, I10 - Essential (primary) hypertension Medications: New ondansetron Only take one every 12 hours as needed if you have nausea 4 mg PO Q12H 20 tabs 0RF nausea and vomiting R11.0 - Nausea polyethylene glycol 3350 Mix each measuring cup with 8oz of water, Crystal light, or Gatorade zero, or Propel and do 7 measuring cups on 01/18/25 and another 7 measuring cups on 01/19/25 17 grams PO DAILY 238 grams 0RF Z01.818 - Encounter for other preprocedural examination pantoprazole 40 mg PO DAILY 90 tabs 0RF K21.9 - Gastro-esophageal reflux disease without esophagitis sucralfate 10 mL PO BID 600 mL 2RF K21.9 - Gastro-esophageal reflux disease without esophagitis
[2025-01-09 23:52] VITALS: BMI 34.5
== END 2025-01-10 13:13 | disposition home or self-care (01) ==
LOC: HO.HBS 08:16
PROVIDERS: PCP Student in an Organized Health Care Education/Training Program; Visit Provider Surgery
DX: E66.811 Obesity, class 1 (principal); E66.09 Other obesity due to excess calories; Z68.34 Body mass index [BMI] 34.0-34.9, adult
CPT/HCPCS: 99214

== ENCOUNTER 2025-01-12 11:29 | Outpatient (AMB) | payer OTHER, SELFPAY ==
--- NOTE | 2025-01-12 11:15 | MHC.WMTHER ---
Intake Intake Visit Reasons: VIDEO BH F/U Allergies metformin Allergy (Verified 01/26/25 14:19) Diarrhea shellfish derived Allergy (Verified 01/26/25 14:19) Diarrhea, vomiting, nausea. [facility], [facility] Medical History (Updated 01/21/25 @ 00:02 by Tacho Molina) H/O hidradenitis suppurativa History of MRSA infection Mood disorder PTSD (post-traumatic stress disorder) Anxiety Depression Sleep apnea Morbid obesity Hypertension Fatty liver Chronic headaches GERD (gastroesophageal reflux disease) High triglycerides IBS (irritable bowel syndrome) PCOS (polycystic ovarian syndrome) Surgical History (Updated 01/26/25 @ 14:19 by Surekha Hopkins CMA) S/P gastric sleeve procedure History of surgical removal of skin lesion H/O colonoscopy History of esophagogastroduodenoscopy (EGD) History of bladder surgery Family History Mother No problems noted. Father TIA (transient ischemic attack) Depression Anxiety Daughter No problems noted. Daughter No problems noted. Social History Household Members: Significant Other, Family and Children Housing: House Are you a primary home care physical therapist to a significant other at home: No Do you presently have visiting nurse or other home services: No Alcohol intake: never Comment: FRANNIE 07/16/24 Patient Tobacco Use Status: Former Tobacco user service: No Current occupational status: employed Behavioral Health Assessment Weight Management Therapy Therapy Notes Details Subjective: Patient has surgery scheduled for next week (01/20/25). She reports feeling emotionally better overall, with fewer explosive episodes, but continues to experience anxiety, particularly when alone or anticipating doing things independently. Sleep has improved, though she finds it difficult to wake up in the mornings. She expresses significant anxiety about leaving her children during her surgery and worries about the possibility of something bad happening to her. Objective: Session conducted via Telehealth. The focus was on preoperative anxiety management and adjustment to upcoming surgery. Psychoeducation was provided regarding the normalcy of anticipatory anxiety before surgery and the impact of these emotions on daily functioning. CBT-based interventions were introduced, including cognitive restructuring to help the patient identify and challenge catastrophic thoughts related to surgery and concerns about her children. Guided the patient through relaxation and grounding techniques to manage acute anxiety symptoms. Behavioral activation strategies were discussed to encourage engagement in enjoyable or meaningful activities as a way to reduce preoperative stress. The patient was encouraged to practice self-monitoring of anxious thoughts and to use reframing techniques to foster a sense of control and preparedness. Explored support systems and developed a plan for communicating needs to family members during the perioperative period. Assessment/Response: Mental status: Alert, oriented, mood anxious but stable, affect appropriate, thought process logical and goal-directed. Risk reported/identified: No suicidal or homicidal ideation, no acute safety concerns. Assessment & Plan Assessment & Plan (1) Complex posttraumatic stress disorder: Code(s): F43.10 - Post-traumatic stress disorder, unspecified (2) Status post laparoscopic sleeve gastrectomy: Code(s): Z98.84 - Bariatric surgery status Plan Patient will return for follow-up at one week post-op. Continue to reinforce CBT-based coping strategies for anxiety and adjustment. Encourage ongoing use of relaxation techniques and support system engagement during the perioperative period. Telehealth Telehealth Telehealth Platform: [employer] Location of provider rendering services: other (Home office. [place], [place]) Location of patient: address on file Patient Identification confirmed using: Name, : Yes Telehealth method: video Patient verbally consented to treatment: Yes Patient verbally consented to billing insurance company: Yes Patient informed of any privacy concerns related to visit: Yes Coding Level of Care Code Established Pt Tele Psytx 45 mins ([id number]) Patient Type Established Diagnoses Complex posttraumatic stress disorder F43.10 Status post laparoscopic sleeve gastrectomy Z98.84 Time Spent (min) 45
== END 2025-01-12 12:10 | disposition home or self-care (01) ==
LOC: HO.HBST 11:29
PROVIDERS: PCP Student in an Organized Health Care Education/Training Program; Visit Provider Counselor Mental Health
DX: F43.10 Post-traumatic stress disorder, unspecified (principal); Z98.84 Bariatric surgery status
CPT/HCPCS: 90834

== ENCOUNTER 2025-01-20 05:57 | Day surgery (SDC) | payer OTHER, SELFPAY ==
[2025-01-12 10:43] VITALS: BMI 34.5
[2025-01-13 07:16] LABS: MANUAL DIFF FLAG NO
[2025-01-13 07:48] LABS: Hematocrit 40.2 % (37.0-47.0); Hemoglobin 13.7 g/dl (12.0-16.0); Imm Gran Abs Auto 0.01 X10*3/uL (0.00-0.03); Imm Gran Pct Auto 0.2 % (0.0-0.4); Lymphocytes Absolute Auto 1.1 X10*3/uL (1.2-4.9); Mean Corpuscular HGB Conc 34.1 g/dl (31.0-35.0); Mean Corpuscular Hemoglobin 30.6 pg (27.0-33.0); Mean Corpuscular Volume 89.7 fL (80.0-98.0); NRBC Abs Auto 0.000 X10*3/uL (0.0-0.012); NRBC Pct Auto 0.0 /100WBC (0.0-0.2); Platelet Count 188 X10*3/uL (160-400); Red Blood Count 4.48 X10*6/uL (4.20-5.50); White Blood Count 4.7 X10*3/uL (4.8-10.8)
[2025-01-13 07:53] LABS: INTERNATIONAL NORM RATIO 1.1 (0.9-1.1); Prothrombin Time 12.6 SEC (10.9-12.4)
[2025-01-13 07:56] LABS: Partial Thromboplastin Time 30.3 SEC (26.7-34.1)
[2025-01-13 07:59] LABS: Hemoglobin A1C 101.2231 umol/L; Total Hemoglobin (HGBA1C) 3619.0491 umol/L
[2025-01-13 08:29] LABS: Alanine Aminotransferase 18 U/L (0-31); Albumin Level 4.7 g/dL (3.5-5.0); Alkaline Phosphatase 44 U/L (39-117); Anion Gap 13 (12-20); Aspartate Amino Transferase 19 U/L (5-31); Blood Urea Nitrogen 14 mg/dL (9-16); Calcium 9.6 mg/dL (8.4-10.2); Carbon Dioxide 26 mmol/L (22-29); Chloride 105 mmol/L (96-108); Cholesterol 160 mg/dL (<200); Creatinine Clr Calc Pharmacy 108.0; Estimated Glomerular Filt Rate > 60; HDL Cholesterol 37 mg/dL (>40); Potassium 3.8 mmol/L (3.3-5.1); Sodium 140 mmol/L (135-145); Total Protein 7.3 g/dL (6.5-8.0); Triglycerides 121 mg/dL (<150)
--- NOTE | 2025-01-19 10:12 | HO.ANESPROP2 ---
Documented by User: Shauna Cartwright NP 01/19/25 10:13 HPI - Anesthesia Eval Consult details Narrative: 39yo F for Gastrectomy Sleeve,EGD,possible Diaphragmatic Hernia,possible Ventral Hernia,possible Open PMFSH Active Problems Active Problems: All Active Problems Obesity (Acute) Vitamin D deficiency (Acute) Other mixed anxiety disorders (Acute) Other specified persistent mood disorders (Acute) Other impulse disorders (Acute) Right foot sprain (Acute) Attention and concentration deficit (Acute) MARK ANTHONY (generalized anxiety disorder) (Acute) MDD (major depressive disorder), recurrent severe, without psychosis (Acute) Morbid obesity (Acute) Hypertension (Acute) Past Medical History Medical History H/O hidradenitis suppurativa History of MRSA infection Mood disorder PTSD (post-traumatic stress disorder) Anxiety Depression Sleep apnea Morbid obesity Hypertension Fatty liver Chronic headaches GERD (gastroesophageal reflux disease) High triglycerides IBS (irritable bowel syndrome) PCOS (polycystic ovarian syndrome) Family History Family History Mother No problems noted. Father TIA (transient ischemic attack) Depression Anxiety Daughter No problems noted. Daughter No problems noted. Family history of problems with anesthesia: No Surgical History Surgical History History of surgical removal of skin lesion H/O colonoscopy History of esophagogastroduodenoscopy (EGD) History of bladder surgery History of Problems with Anesthesia: No Social History Social History Household Members: Family Are you a primary rn transitional care to a significant other at home: No Do you presently have visiting nurse or other home services: No Alcohol intake: never Comment: FRANNIE 07/16/24 Patient Tobacco Use Status: Former Tobacco user Use of substances other than those prescribed or required for medical reasons: No Have you been hit, kicked, punched, or otherwise hurt by someone within the past year? If so, by whom?: No Are you DNR?: No Advance Directives: No Advance Directives Information Provided: Yes Advance Directives on File: No Patient : No : No Poor oral hygiene: No Current occupational status: employed Meds Allergies Allergy/AdvReac Type Severity Reaction Status Date / Time metformin Allergy Diarrhea Verified 01/09/25 23:57 shellfish derived Allergy Diarrhea, Verified 01/09/25 23:57 vomiting, nausea. Home Medications ?Medication ?Instructions ?Recorded ?Confirmed ?Last Taken ?Type doxycycline hyclate 60 mg 60 mg PO DAILY PRN Flare up acne. 05/21/24 01/20/25 Unknown History tablet,delayed release (Doryx MPC) spironolactone 50 mg tablet 100 mg PO DAILY 05/21/24 01/20/25 01/16/25 History bupropion HCl 300 mg 24 hr tablet, 300 mg PO DAILY 10/18/24 01/20/25 01/19/25 History extended release docusate sodium 100 mg capsule 100 mg PO DAILY 01/12/25 01/20/25 01/18/25 History lamotrigine 100 mg tablet 200 mg PO DAILY 01/12/25 01/20/25 01/19/25 History Exam Height,Weight and Vital Signs: Height 5 ft 6 in Weight 97.069 kg Pertinent Lab Results Pertinent Lab Results: Laboratory Tests 01/13/25 01/13/25 07:08 07:15 WBC 4.7 L RBC 4.48 Hgb 13.7 Hct 40.2 MCV 89.7 MCH 30.6 MCHC 34.1 RDW 12.1 Plt Count 188 MPV 11.4 Immature Gran % (Auto) 0.2 Neut % (Auto) 66.6 Lymph % (Auto) 23.7 [place] % (Auto) 7.4 Eos % (Auto) 1.5 Baso % (Auto) 0.6 Lymph # (Auto) 1.1 L [place] # (Auto) 0.4 Eos # (Auto) 0.1 Baso # (Auto) 0.0 Abs Immat Gran (auto) 0.01 Absolute Neuts (auto) 3.2 Absolute Nucleated RBC 0.000 Nucleated RBC % (auto) 0.0 PT 12.6 H INR 1.1 APTT 30.3 Sodium 140 Potassium 3.8 Chloride 105 Carbon Dioxide 26 Anion Gap 13 BUN 14 Creatinine 0.83 Estim Creat Clear Calc 108.0 Estimated GFR > 60 Random Glucose 90 Estimat Average Glucose 88 Hemoglobin A1c % 4.7 Insulin Level 11 Calcium 9.6 Total Bilirubin 1.3 H AST 19 ALT 18 Alkaline Phosphatase 44 C-Reactive Protein 0.24 Total Protein 7.3 Albumin 4.7 Triglycerides 121 Cholesterol 160 LDL Cholesterol, Calc 99 HDL Cholesterol 37 L TSH 1.53 Blood Type O Positive Antibody Screen NEGATIVE Narrative Narrative: EKG 10/2024 Vent. Rate : 83 BPM Atrial Rate : 83 BPM P-R Int : 118 ms QRS Dur : 82 ms QT Int : 374 ms P-R-T Axes : 9 60 54 degrees QTcB Int : 439 ms Normal sinus rhythm Normal ECG No previous ECGs available Assessment and Plan Assessment Anesthesia Assessment: Chart Reviewed Final Anesthetic Review Family History of Problems with Anesthesia: No History of Problems with Anesthesia: No Documented by User: Vipul Dacosta MD 01/20/25 07:27 [facility] Past Medical History Medical History H/O hidradenitis suppurativa History of MRSA infection Mood disorder PTSD (post-traumatic stress disorder) Anxiety Depression Sleep apnea Morbid obesity Hypertension Fatty liver Chronic headaches GERD (gastroesophageal reflux disease) High triglycerides IBS (irritable bowel syndrome) PCOS (polycystic ovarian syndrome) Family History Family History Mother No problems noted. Father TIA (transient ischemic attack) Depression Anxiety Daughter No problems noted. Daughter No problems noted. Surgical History Surgical History History of surgical removal of skin lesion H/O colonoscopy History of esophagogastroduodenoscopy (EGD) History of bladder surgery Social History Social History Household Members: Family Are you a primary rn transitional care to a significant other at home: No Do you presently have visiting nurse or other home services: No Alcohol intake: never Comment: FRANNIE 07/16/24 Patient Tobacco Use Status: Former Tobacco user Use of substances other than those prescribed or required for medical reasons: No Have you been hit, kicked, punched, or otherwise hurt by someone within the past year? If so, by whom?: No Are you DNR?: No Advance Directives: No Advance Directives Information Provided: Yes Advance Directives on File: No Patient : No : No Poor oral hygiene: No Current occupational status: employed Meds Allergies Allergy/AdvReac Type Severity Reaction Status Date / Time metformin Allergy Diarrhea Verified 01/09/25 23:57 shellfish derived Allergy Diarrhea, Verified 01/09/25 23:57 vomiting, nausea. Home Medications ?Medication ?Instructions ?Recorded ?Confirmed ?Last Taken ?Type doxycycline hyclate 60 mg 60 mg PO DAILY PRN Flare up acne. 05/21/24 01/20/25 Unknown History tablet,delayed release (Doryx MPC) spironolactone 50 mg tablet 100 mg PO DAILY 05/21/24 01/20/25 01/16/25 History bupropion HCl 300 mg 24 hr tablet, 300 mg PO DAILY 10/18/24 01/20/25 01/19/25 History extended release docusate sodium 100 mg capsule 100 mg PO DAILY 01/12/25 01/20/25 01/18/25 History lamotrigine 100 mg tablet 200 mg PO DAILY 01/12/25 01/20/25 01/19/25 History Exam Exam Date and Time: 01/20/2025 Airway Mallampati Class: II TM Dist: >3cm Neck ROM: Full Heart: rrr Lungs: cta Assessment and Plan Final Anesthetic Review NPO: Yes ASA Class: II Final Preanesthetic Review: No Changes in Pt Med Stat, Meds/Allgs Chart Reviewed, Consent Obtained/Reviewed and Anes Risks/Benef Reviewed Patient Risk: Low Procedure Risk: Intermediate Anesthetic Plan Anesthetic Plan: GA Disposition: Standard PACU
[2025-01-20] VITALS (24 sets, daily range): BP systolic 122–150; BP diastolic 69–98; PULSE 66–89; RESP 14–20; TEMP 36–36.8; O2SAT 96–100; BMI 33.2
[2025-01-20 06:32] LABS: UPreg QC Valid YES
[2025-01-20] MEDS: Lactated Ringers 1,000 ML 999 ML IV (06:37)
[2025-01-20] MEDS: Aprepitant 32 MG/4.4 ML VIAL IVPUSH (06:38)
--- NOTE | 2025-01-20 07:01 | PHA.MEDREC ---
Pharmacy Consult ? Medication Reconciliation Pharmacy has completed the medication reconciliation. Reviewed med rec done by nursing, matches claims
--- NOTE | 2025-01-20 07:36 | MHC.SHP ---
Pre-Procedural Eval Section A - 24 Hr Update-Section A only Date of Service: 01/20/25 The patient is an INPATIENT: No The patient has been examined within 24 hours of the surgical procedure. The History & Physical has been completed within 30 days and I have reviewed it.: Yes Section B - Complete if H&P > 30 days Chief Complaint: Morbid Obesity Relevant Family History (Specify if Yes): No Relevant Social History: None Present Medications: None Medical History: No relevant PMH History of Previous Operations: No relevant previous surgery Allergies: Allergies Allergy/AdvReac Type Severity Reaction Status Date / Time metformin Allergy Diarrhea Verified 01/09/25 23:57 shellfish derived Allergy Diarrhea, Verified 01/09/25 23:57 vomiting, nausea. Review of Systems Sugical H&P ROS: Negative: Constitution, Cardiovascular, Respiratory, Neurological, Psychiatric, Hem-Onc, Allergic/Immunologic, Gastrointestinal, Genitourinary, Musculoskeletal, Integumentary, Endocrine and Eyes/Ears/Nose/Throat Exam Surgical H&P Exam: Normal: HEENT, Normal: Heart, Normal: Lungs, Normal: Extremities, Normal: Abdomen, Normal: Skin and Normal: Neurological Plan Diagnosis/Plan: Unchanged I have reviewed the history and physical and performed a pertinent physical examination on my patient. No changes have occurred unless specified. Time Spent With Patient Time: Total time managing care of this patient today ____ minutes.
--- NOTE | 2025-01-20 07:45 | P.BOP_ITS ---
Brief Operative Note Date of Service: 01/20/25 Pre-op diagnosis: Severe obesity with comorbidities (see below) Post-op diagnosis: same (congenital abdominal adhesions) Procedure: INITIAL PATIENT BMI ON PRESENTATION AT OUR OFFICE: 40.4 kg/m2 LAST BMI BEFORE SURGERY: 33.8 kg/m2 COMORBIDITIES: hypertension, PCOS, depression, anxiety, hydradenitis ?The patient presented to the Weight Management Program with significant obesity that was negatively impacting the patient's comorbidities as listed above.? The program is a phased program with a special focus on preoperative medical weight management to promote substantial weight loss and prepare the patients for the second phase of the program: bariatric surgery. The patient participated in an intensive weekly lifestyle ?intervention and exercise program during which the patient ?has lost between the initial office visit and the last preoperative visit 36.4 lbs, or 14.5% of initial actual body weight. It was deemed appropriate for the patient to now have bariatric surgery. In light of the current Covid-19 pandemic and the well documented strong association of obesity and increased risk of worse outcomes if infected with Covid-19 (REFERENCES: https://pubmed.ncbi.nlm.nih.gov/21666432/ ,? https://pubmed.ncbi.nlm.nih.gov/22065939/ ), any delay in undergoing bariatric surgery may lead to the patient's worsening health condition and increased?risk of more severe Covid-19 disease if infected. In addition a recent?study from [facility] published in [facility] on 06/04/2021 ([email or web address]) found that, among patients with obesity, substantial weight loss achieved with surgery was associated with improved outcomes of COVID-19 infection. The findings suggest that obesity can be a modifiable risk factor for the severity of COVID-19 infection. In addition, the patient met the BMI-criteria for bariatric surgery based on the BMI on initial presentation. The patient should not be penalized for achieving such weight loss because ?it is not sustainable long-term without surgical intervention and it was achieved in preparation for bariatric surgery ?under my direction and based on my published research ([email or web address] and? [email or web address].[email or web address]/[email or web address])[email or web address]-X/pdf ) ?that a 10% preoperative weight loss improves long-term weight loss after surgery and reduces perioperative complications.? Insurance carriers such as [employer] [facility] [facility] have endorsed my recommendations ?and have included in their policies criteria to include a 10% preoperative weight loss requirement. PROCEDURE: Esophago-gastroscopy, laparoscopic lysis of adhesions, laparoscopic sleeve gastrectomy and laparoscopic gastropexy INDICATIONS: This is a 39 year-old female who was electively scheduled for laparoscopic, possibly open sleeve gastrectomy. The risks and complications of the procedure were discussed with the patient in advance, particularly the possibility of ; pulmonary embolism; staple line leak; bleeding; GERD; cardiac, pulmonary, or renal complications; as well as long-term problems such a s insufficient weight loss, vitamin deficiency, strictures, or ulcers. The patient understood all the risks, and was in agreement to proceed with surgery. DESCRIPTION OF PROCEDURE: After informed consent was obtained from the patient, the patient was given preoperative antibiotics, and was transferred to the operating room. After successful induction of general anesthesia, pneumatic compression devices were placed on both lower extremities. An upper endoscopy was performed next. The oropharynx and esophagus appeared to be within normal limits. There was no diaphragmatic hernia present. The stomach was entered. Then after all fluid and air were suctioned and the stomach was fully decompressed, the scope was withdrawn and secured in the mid esophagus. The patient was then prepped and draped in the usual sterile manner, and abdominal access was established at the right upper quadrant with the Giulia technique. A 12 mm blunt port was inserted, and the abdomen was insufflated with CO2 to a pressure of 15 mmHg. Under direct visualization, additional ports were placed, specifically two 5 mm Versi-step ports to the left upper quadrant, and a 5 mm Versi-Step port to the right upper quadrant. 1% lidocaine plain was used to infiltrate all port sites as well as all fascia defects. Following that, the patient was placed in a steep reverse Trendelenburg position. An additional 5 mm port was placed to the right flank for the Mediflex retractor that was used to retract the left lobe of the liver. The gastro-esophageal fat pad was opened with the ultrasonic device (Thunderbeat, Olympus) and the anterior esophagus and hiatus were exposed. The angle of His was opened with the ultrasonic device the fundus of the stomach from any diaphragmatic and splenic attachments. I then opened the gastrocolic ligament between the transverse colon and the greater curvature of the stomach with the ultrasonic device to enter the lesser sac and facilitate the ligation of the short gastric vessels. I started at a mid-point along the greater curvature and using the Thunderbeat, all short gastric vessels were divided all the way to the angle of His until the left daron was completely dissected at its entirety. I then divided the gastro-colic ligament distally to a distance of about 3-4 cm proximal to the pylorus. There were extensive congenital adhesions between the pancreas and posterior gastric wall. Those were lysed completely with the ultrasonic device. Adhesiolysis took approximately 45 min to complete.? The stomach was then divided transversely with two Endo EMERSON-45 purple and three EMERSON-60 articulating purple loads using the [employer] stapler and loads. Every effort was made that the gastric sleeve had a tubular shape and an even caliber throughout. Once the sleeve resection was completed, the staple line of the gastric sleeve was reinforced with Hemoclips. The resected stomach was retrieved without difficulty from the Giulia port. A gastropexy was then performed in order to prevent postoperative GERD and partial gastric volvulus. Several interrupted 2.0 Surgidac sutures were placed between the sleeve's staple line and the previously divided greater omentum and gastro-colic ligament using the Endo-Stitch device. ?An upper endoscopy was performed. There was no narrowing at the GE junction. The scope was easily advanced all the way to the pylorus which was clearly visualized. There was no narrowing anywhere and the sleeve's caliber was even throughout. The sleeve's staple line was inspected and there was no evidence of ischemia, bleeding or dehiscence. At that point the gastroscope was withdrawn from the patient?s mouth while we were decompressing the bowel and the stomach from any remaining air. I looked into the lesser sac to see how the sleeve was situating and it was situating well. There was no bleeding from the staple line, spleen, or short gastric vessels. The Mediflex retractor was removed, and the undersurface of the liver was inspected and there was no bleeding. The patient was placed in supine position. I closed the fascial defect of the 12 mm port site with a figure of eight #1 Polysorb suture. Then 30cc Ropivacaine plain with 10 mg of Dexamethasone were used to infiltrate the fascial closure as well as all skin incisions. At this point, the abdomen was deflated, all ports were removed under direct vision, and no bleeding was noted from any of the port sites. The skin incisions were irrigated with saline and were closed with 4-0 absorbable monofilament sutures. Steri-Strips and OpSites were used to cover all incisions. The patient was extubated and was transferred in stable condition to the recovery room for further care. I was present and performed all hubbard parts of the procedure. Ms. Maravilla was the first mate. There were no residents to assist with this case. Javi Tesfaye MD, PhD, FACS Surgeon: Eduard Tesfaye MD Anesthesia: GETA, local and other (TAP block) Was an Community Health Worker used for this Procedure?: No Community Health Worker: Maria Maravilla Estimated blood loss (mL): 10 IV fluids (mL): 2,500 Urine output (mL): 0 (No Liz to record output) Pathology: other (1) Stomach, 2) Gastro-esophageal fat pad) Condition: stable Disposition: PACU
--- NOTE | 2025-01-20 07:48 | PM.PNGS ---
Subjective Subjective Date of Service: 01/20/25 Interval history: Feels well. Mild incisional pain. She is tolerating phase 1 bariatric diet Physical Exam Vital Signs: Vital Signs: Last Vital Signs Temp 97.9 F 01/20/25 06:27 Pulse 79 01/20/25 06:27 Resp 16 01/20/25 06:27 BP 122/69 01/20/25 06:27 Pulse Ox 96 01/20/25 06:27 O2 Del Method Room Air 01/20/25 06:27 BMI result Body Mass Index 33.2 GI: Inspection: Yes normal to inspection and Yes incision (clean, dry and intact) Palpation (GI): Soft to palpation Extrem: Right lower extremity: normal to inspection (no calf tenderness) Left lower extremity: normal to inspection (no calf tenderness) Objective Data Active Medications Fentanyl (Fentanyl Citrate/Pf 100 Mcg/2 Ml Vial) 25 mcg IVPUSH Q5M PRN PRN Reason: Pain, Moderate to Severe (Pain Scale 4-10) Stop: 01/20/25 13:29 Hydromorphone HCl (Hydromorphone Hcl 0.5 Mg/0.5 Ml Syringe) 0.25 mg IVPUSH Q5M PRN PRN Reason: Pain, Moderate to Severe (Pain Scale 4-10) Stop: 01/20/25 13:29 Lactated Ringer's (Lr) 1,000 mls @ 100 mls/hr IVCONT .Q10H [facility] Stop: 01/20/25 10:14 Lactated Ringer's (Lr) 1,000 mls @ 999 mls/hr IV .Q1H1M [facility] Stop: 01/20/25 08:15 Last Admin: 01/20/25 06:37 Dose: 999 mls/hr Documented By: LEI Lactated Ringer's (Lr) 500 mls @ 20 mls/hr IVCONT .Q24H [facility] Naloxone HCl (Naloxone Hcl 0.4 Mg/Ml Vial) 0.04 mg IVPUSH Q5M PRN PRN Reason: Excessive sedation or RR < 8 Ondansetron HCl (Ondansetron Hcl 4 Mg/2 Ml Vial) 4 mg IVPUSH ONCE PRN PRN Reason: Nausea and Vomiting Stop: 01/20/25 13:30 Labs 01/13/25 07:15 01/13/25 07:15 Labs: Laboratory Results - last 24 hr 01/20/25 06:15 Urine Test NEGATIVE Procedures Date of Service Date of Service: 01/20/25 Progress Note: A&P Assessment and plan (1) Obesity: Status: Acute Assessment and Plan: s/p laparoscopic sleeve gastrectomy, lysis of adhesions and gastropexy Doing well Will check am labs and if OK the patient will be discharged home (2) BMI 33.0-33.9,adult: Status: Acute (3) Hypertension: Status: Acute (4) Depression: Status: Acute (5) Anxiety: Status: Acute (6) Status post laparoscopic sleeve gastrectomy: Status: Acute (7) Congenital intra-abdominal adhesions: Status: Acute Time Spent With Patient Time: Total time managing care of this patient today ____ minutes. Quality Stroke Does the patient have a stroke diagnosis?: No VTE Prior VTE?: No VTE Risk Level:: Surgical - moderate VTE Device Contraindication: N/A - Device Ordered VTE Drug Contraindication: Treatment Not Indicated
--- NOTE | 2025-01-20 09:53 | P.DS_ITS ---
DS: Providers Provider Date of Service: 01/21/25 Date of admission: 01/20/25 06:13 Date of discharge: 01/21/25 Primary care physician: Jessi Leal MD DS: Diagnosis Discharge Diagnosis (1) Obesity: Status: Acute (2) BMI 33.0-33.9,adult: Status: Acute (3) Hypertension: Status: Acute (4) Depression: Status: Acute (5) Anxiety: Status: Acute DS: Summary Hospital Course Hospital Course: ADMITTING DIAGNOSIS: obesity, depression, anxiety, PCOS, HTN DISCHARGE DIAGNOSIS: same, s/p laparoscopic sleeve gastrectomy and gastropexy PAST SURGICAL HISTORY:? history of bladder surgery PROCEDURE: upper endoscopy, laparoscopic sleeve gastrectomy and gastropexy DISCHARGE SUMMARY: History of Present Illness: The patient is a?39 year-old woman with a BMI of?33.2 kg/m2 and associated co- morbidities as described above. The patient had extensive work-up, lost?34.4 lbs preoperatively and was electively scheduled for laparoscopic, possible open sleeve gastrectomy and gastropexy. Risks and complications of the surgery were discussed with the patient in advance, particularly the possibility of , pulmonary embolism, anastomotic leak, bleeding, bowel injury, GERD, cardiac, renal or pulmonary complications. The patient understood all the risks and was in agreement with the surgical plan. Hospital Course: The patient underwent an uneventful laparoscopic sleeve gastrectomy with gastropexy on the day of admission. Postoperatively, the patient was transferred to the surgical floor. The patient received IV acetaminophen and IV Dilaudid for pain control. Patient was started on bariatric phase 1 diet POD #0. On postoperative day one, the patient was feeling well without nausea, vomiting, fevers, or tachycardia. The patient had some mild incisional pain and the abdomen was soft.? ? On the morning of postoperative day one, the patient was continued on 1 ounce of water or ice every half hour. During the day, the patient did fairly well, having some incisional pain, but able to ambulate adequately and to tolerate liquids well. Since the patient is doing well, we decided that the patient was ready to be discharged. The patient was given instructions to follow-up in office next week and to call the office for any fever over 101, persistent abdominal pain, nausea, vomiting, GERD, symptoms of DVT such as calf tenderness, or leg swelling, or pulmonary embolism such as chest pain or shortness of breath.? The patient was also instructed to drink 40-60 ounces of liquids per day using the 1-ounce cups. The patient had been given prescriptions for Tylenol for pain, Zofran prn for nausea, and pantoprazole and carafate previously. The patient was encouraged to ambulate and use the incentive spirometer. The patient was allowed to shower, but no baths, and encouraged to stay active at home. All of these instructions were given to the patient personally. All questions were answered and the patient understood all instructions, the instructions were also given to the patient in print. Time Attestation Discharge Coordination Time (in mins): 30 Quality: Safe Use of Opioids Does Pt have an Active Cancer Diagnosis on the Problem List?: No Quality: Stroke Does the patient have a stroke diagnosis?: No Physical Exam Vital Signs: Vital Signs: Last Vital Signs Temp 98.3 F 01/20/25 09:50 Pulse 83 01/20/25 09:50 Resp 14 01/20/25 09:50 BP 138/80 01/20/25 09:50 Pulse Ox 100 01/20/25 09:50 O2 Del Method Simple Mask 01/20/25 09:50 O2 Flow Rate 6 01/20/25 09:50 BMI result Body Mass Index 33.2 DS: Data Data Completed and Pending Pending studies at discharge: Pending at discharge 01/20/25 09:15 Surgical [PTH] Routine Labs on day of discharge: Laboratory Results - last 24 hr 01/20/25 06:15 Urine Test NEGATIVE Discharge Plan Discharge Patient Disposition: Home, Self-Care Referrals: Jessi Leal MD [Primary Care Provider, Primary Care] - 1 Week Discharge Medications: Continued Doryx MPC 60 mg tablet,delayed release (DR/EC) 60 mg PO DAILY PRN (Reason: Flare up acne.) lamotrigine 100 mg tablet 200 mg PO DAILY Patient Comments: Patient to discuss with Dr. Ulrich when to increase to 100 mg daily. Rx Instructions: Patient has not started. She is currently taking 75 mg daily. docusate sodium 100 mg Capsule 100 mg PO DAILY sucralfate 100 mg/mL suspension 10 ml PO BID Qty: 600 2RF pantoprazole 40 mg tablet,delayed release (DR/EC) 40 mg PO DAILY Qty: 90 0RF ondansetron 4 mg tablet,disintegrating 4 mg PO Q12H Qty: 20 0RF Rx Instructions: Only take one every 12 hours as needed if you have nausea bupropion HCl 300 mg tablet extended release 24 hr 300 mg PO DAILY Held spironolactone 50 mg tablet 100 mg PO DAILY Hold Instructions: Resume on 01/21/25. Only resume according to parameters given by Dr. Tesfaye Rx Instructions: Last filled 05/03/24 Discontinued cholecalciferol (vitamin D3) 125 mcg (5,000 unit) capsule 125 mcg PO DAILY Qty: 90 0RF polyethylene glycol 3350 17 gram/dose powder 17 g PO DAILY Qty: 238 0RF Rx Instructions: Mix each measuring cup with 8oz of water, Crystal light, or Gatorade zero, or Propel and do 7 measuring cups on 01/18/25 and another 7 measuring cups on 01/19/25 Discharge Orders: Discharge Order (Routine); Ordered 01/21/25 Ordered By: Kyle Jang Activity on Discharge: No heavy lifting Stand Alone Forms: Patient Portal Discharge page Print Language: Upper Sorbian Discharge Date/Time: 01/21/25 11:21
[2025-01-20 10:27] LABS: Hematocrit 40.0 % (37.0-47.0); Hemoglobin 13.7 g/dl (12.0-16.0)
[2025-01-20 10:38] LABS: Anion Gap 16 (12-20); Blood Urea Nitrogen 10 mg/dL (9-16); Calcium 9.1 mg/dL (8.4-10.2); Carbon Dioxide 23 mmol/L (22-29); Chloride 106 mmol/L (96-108); Creatinine Clr Calc Pharmacy 122.0; Estimated Glomerular Filt Rate > 60; Potassium 4.4 mmol/L (3.3-5.1); Sodium 141 mmol/L (135-145)
[2025-01-20] MEDS: Lactated Ringers 1,000 ML 100 ML IVCONT (14:12)
[2025-01-21] MEDS: Lactated Ringers 1,000 ML 100 ML IVCONT (00:31)
[2025-01-21 03:00] VITALS: BP 118/58; PULSE 87; RESP 16; TEMP 36.7; O2SAT 96
[2025-01-21 06:28] LABS: MANUAL DIFF FLAG NO
[2025-01-21 06:39] LABS: Hematocrit 39.1 % (37.0-47.0); Hemoglobin 13.4 g/dl (12.0-16.0); Imm Gran Abs Auto 0.02 X10*3/uL (0.00-0.03); Imm Gran Pct Auto 0.3 % (0.0-0.4); Lymphocytes Absolute Auto 1.6 X10*3/uL (1.2-4.9); Mean Corpuscular HGB Conc 34.3 g/dl (31.0-35.0); Mean Corpuscular Hemoglobin 30.8 pg (27.0-33.0); Mean Corpuscular Volume 89.9 fL (80.0-98.0); NRBC Abs Auto 0.000 X10*3/uL (0.0-0.012); NRBC Pct Auto 0.0 /100WBC (0.0-0.2); Platelet Count 175 X10*3/uL (160-400); Red Blood Count 4.35 X10*6/uL (4.20-5.50); White Blood Count 7.3 X10*3/uL (4.8-10.8)
[2025-01-21 06:51] LABS: Anion Gap 17 (12-20); Blood Urea Nitrogen 6 mg/dL (9-16); Calcium 9.5 mg/dL (8.4-10.2); Carbon Dioxide 24 mmol/L (22-29); Chloride 102 mmol/L (96-108); Creatinine Clr Calc Pharmacy 133.0; Estimated Glomerular Filt Rate > 60; Potassium 4.1 mmol/L (3.3-5.1); Sodium 139 mmol/L (135-145)
[2025-01-21 07:00] VITALS: BP 133/75; PULSE 70; RESP 18; TEMP 36.2; O2SAT 96
--- NOTE | 2025-01-21 08:09 | HO.POSTANES ---
Post Anesthesia Evaluation Post Anesthesia Evaluation Date of Service: 01/21/25 Vital Signs: Vital Signs Temp Pulse Resp BP Pulse Ox O2 Del Method 01/21/25 07:00 97.2 F 70 18 133/75 96 Room Air 01/21/25 03:00 98.0 F 87 16 118/58 L 96 Room Air 01/20/25 23:00 97.4 F 67 18 134/79 97 Room Air Anesthesia: General Mental Status: Awake Pain Control: Satisfactory Nausea/Vomiting: None Hydration: Adequate Anesthesia-Related Issues: No Anes. Related Issues
--- NOTE | 2025-01-21 08:12 | P.DS_ITS ---
DS: Providers Provider Date of Service: 01/21/25 Date of discharge: 01/21/25 Primary care physician: Jessi Leal MD DS: Diagnosis Discharge Diagnosis (1) Obesity: Status: Acute (2) BMI 33.0-33.9,adult: Status: Acute (3) Hypertension: Status: Acute (4) Depression: Status: Acute (5) Anxiety: Status: Acute (6) Status post laparoscopic sleeve gastrectomy: Status: Acute (7) Congenital intra-abdominal adhesions: Status: Acute DS: Summary Hospital Course Hospital Course: ADMITTING DIAGNOSIS: obesity, depression, anxiety, PCOS, HTN DISCHARGE DIAGNOSIS: same, s/p laparoscopic sleeve gastrectomy and gastropexy PAST SURGICAL HISTORY:? history of bladder surgery PROCEDURE: upper endoscopy, laparoscopic sleeve gastrectomy and gastropexy DISCHARGE SUMMARY: History of Present Illness: The patient is a?39 year-old woman with a BMI of?33.2 kg/m2 and associated co- morbidities as described above. The patient had extensive work-up, lost?34.4 lbs preoperatively and was electively scheduled for laparoscopic, possible open sleeve gastrectomy and gastropexy. Risks and complications of the surgery were discussed with the patient in advance, particularly the possibility of , pulmonary embolism, anastomotic leak, bleeding, bowel injury, GERD, cardiac, renal or pulmonary complications. The patient understood all the risks and was in agreement with the surgical plan. Hospital Course: The patient underwent an uneventful laparoscopic sleeve gastrectomy with gastropexy on the day of admission. Postoperatively, the patient was transferred to the surgical floor. The patient received IV acetaminophen and IV Dilaudid for pain control. Patient was started on bariatric phase 1 diet POD #0. On postoperative day one, the patient was feeling well without nausea, vomiting, fevers, or tachycardia. The patient had some mild incisional pain and the abdomen was soft.? ? On the morning of postoperative day one, the patient was continued on 1 ounce of water or ice every half hour. During the day, the patient did fairly well, h aving some incisional pain, but able to ambulate adequately and to tolerate liquids well. Since the patient is doing well, we decided that the patient was ready to be discharged. The patient was given instructions to follow-up in office next week and to call the office for any fever over 101, persistent abdominal pain, nausea, vomiting, GERD, symptoms of DVT such as calf tenderness, or leg swelli ng, or pulmonary embolism such as chest pain or shortness of breath.? The patient was also instructed to drink 40-60 ounces of liquids per day using the 1-ounce cups. The patient had been given prescriptions for Tylenol for pain, Zofran prn for nausea, and pantoprazole and carafate previously. The patient was encouraged to ambulate and use the incentive spirometer. The patient was allowed to shower, but no baths, and encouraged to stay active at home. All of these instructions were given to the patient personally. All questions were answered and the patient understood all instructions, the instructions were also given to the patient in print. Time Attestation Discharge Coordination Time (in mins): 25 Quality: Safe Use of Opioids Does Pt have an Active Cancer Diagnosis on the Problem List?: No Quality: Stroke Does the patient have a stroke diagnosis?: No Physical Exam Vital Signs: Vital Signs: Last Vital Signs Temp 97.2 F 01/21/25 07:00 Pulse 70 01/21/25 07:00 Resp 18 01/21/25 07:00 BP 133/75 01/21/25 07:00 Pulse Ox 96 01/21/25 07:00 O2 Del Method Room Air 01/21/25 07:00 O2 Flow Rate 2 01/20/25 13:05 BMI result Body Mass Index 33.2 DS: Data Data Completed and Pending Pending studies at discharge: Pending at discharge 01/20/25 09:14 Surgical [PTH] Routine Labs on day of discharge: Laboratory Results - last 24 hr 01/20/25 01/21/25 10:19 05:37 WBC 7.3 RBC 4.35 Hgb 13.7 13.4 Hct 40.0 39.1 MCV 89.9 MCH 30.8 MCHC 34.3 RDW 12.0 Plt Count 175 MPV 12.1 Immature Gran % (Auto) 0.3 Neut % (Auto) 68.4 Lymph % (Auto) 22.1 [place] % (Auto) 8.4 Eos % (Auto) 0.5 Baso % (Auto) 0.3 Lymph # (Auto) 1.6 [place] # (Auto) 0.6 Eos # (Auto) 0.0 Baso # (Auto) 0.0 Abs Immat Gran (auto) 0.02 Absolute Neuts (auto) 5.0 Absolute Nucleated RBC 0.000 Nucleated RBC % (auto) 0.0 Sodium 141 139 Potassium 4.4 4.1 Chloride 106 102 Carbon Dioxide 23 24 Anion Gap 16 17 BUN 10 6 L Creatinine 0.72 0.66 Estim Creat Clear Calc 122.0 133.0 Estimated GFR > 60 > 60 Random Glucose 111 72 Calcium 9.1 9.5 Discharge Plan Discharge Patient Disposition: Home, Self-Care Referrals: Jessi Leal MD [Primary Care Provider, Primary Care] - 1 Week Discharge Medications: Continued Doryx MPC 60 mg tablet,delayed release (DR/EC) 60 mg PO DAILY PRN (Reason: Flare up acne.) lamotrigine 100 mg tablet 200 mg PO DAILY Patient Comments: Patient to discuss with Dr. Ulrich when to increase to 100 mg daily. Rx Instructions: Patient has not started. She is currently taking 75 mg daily. docusate sodium 100 mg Capsule 100 mg PO DAILY sucralfate 100 mg/mL suspension 10 ml PO BID Qty: 600 2RF pantoprazole 40 mg tablet,delayed release (DR/EC) 40 mg PO DAILY Qty: 90 0RF ondansetron 4 mg tablet,disintegrating 4 mg PO Q12H Qty: 20 0RF Rx Instructions: Only take one every 12 hours as needed if you have nausea bupropion HCl 300 mg tablet extended release 24 hr 300 mg PO DAILY Held spironolactone 50 mg tablet 100 mg PO DAILY Hold Instructions: Resume on 01/21/25. Only resume according to parameters given by Dr. Tesfaye Rx Instructions: Last filled 05/03/24 Discontinued cholecalciferol (vitamin D3) 125 mcg (5,000 unit) capsule 125 mcg PO DAILY Qty: 90 0RF polyethylene glycol 3350 17 gram/dose powder 17 g PO DAILY Qty: 238 0RF Rx Instructions: Mix each measuring cup with 8oz of water, Crystal light, or Gatorade zero, or Propel and do 7 measuring cups on 01/18/25 and another 7 measuring cups on 01/19/25 Discharge Orders: Discharge Order (Routine); Ordered 01/21/25 Ordered By: Kyle Jang Activity on Discharge: No heavy lifting Stand Alone Forms: Patient Portal Discharge page Print Language: Tongan
[2025-01-21 09:13] VITALS: BP 140/80; PULSE 67; RESP 16; TEMP 36.6; O2SAT 98
[2025-01-21 10:11] VITALS: BP 134/83; PULSE 67; RESP 16; TEMP 36.2; O2SAT 99
[2025-01-21] MEDS: buPROPion HCl XL 300 MG TAB.ER.24H PO (10:20)
--- NOTE | 2025-01-21 10:25 | MHC.CM.PN ---
CM MET WITH PT AT BEDSIDE. PT LIVES WITH SPOUSE AND YOUNG CHILDREN AND IS FUNCTIONALLY INDEP. NO DME OR SERVICES. PT DECLINES COMPLETION OF A HCP AT THIS TIME. PCP BABITA RENTERIA DP: PT HAS BEEN MEDICALLY CLEARED FOR DC HOME, NO SERVICES. PT'S SPOUSE WILL TRANSPORT HOME.
== END 2025-01-21 11:21 | disposition home or self-care (01) ==
LOC: HO.SSS 05:57 → HO.SSSA 09:53 → HO.S3 13:30
PROVIDERS: Nurse Practitioner; Physician Assistant Surgical; PCP Student in an Organized Health Care Education/Training Program; Visit Provider Surgery
PROC: (CPT 43845; principal; 2025-01-20 07:30)
DX: E66.01 Morbid (severe) obesity due to excess calories (principal); Z68.33 Body mass index [BMI] 33.0-33.9, adult; Q45.8 Other specified congenital malformations of digestive system; I10 Essential (primary) hypertension; K21.9 Gastro-esophageal reflux disease without esophagitis; K76.0 Fatty (change of) liver, not elsewhere classified; R51.9 Headache, unspecified; E78.1 Pure hyperglyceridemia; F32.A Depression, unspecified; F41.9 Anxiety disorder, unspecified; E28.2 Polycystic ovarian syndrome; L73.2 Hidradenitis suppurativa; Z79.899 Other long term (current) drug therapy; Z88.8 Allergy status to other drugs, medicaments and biological substances; Z87.891 Personal history of nicotine dependence
CPT/HCPCS: 43775; 43659; 49329; 36415; 80048; 80053; 80061; 81025; 83036; 83525; 84443; 85014; 85018; 85025; 85610; 85730; 86140; 86850; 86900; 86901; 88304; 88305; 88307; 88342; A4649; C9145; J0131; J0690; J1100; J1171; J1308; J2003; J2250; J2371; J2405; J2704; J2795; J3010; J7120

== ENCOUNTER → 2025-01-20 06:13 | Outpatient (BNV) | payer OTHER, SELFPAY | PROVIDERS: Admitting Provider Surgery; PCP Student in an Organized Health Care Education/Training Program; Visit Provider Surgery | DX: E66.811 Obesity, class 1 (principal); E66.09 Other obesity due to excess calories; Z68.34 Body mass index [BMI] 34.0-34.9, adult; Z68.33 Body mass index [BMI] 33.0-33.9, adult; I10 Essential (primary) hypertension; F32.A Depression, unspecified; F41.9 Anxiety disorder, unspecified; Z98.84 Bariatric surgery status; Q43.3 Congenital malformations of intestinal fixation | CPT/HCPCS: 99238 ==

== ENCOUNTER 2025-01-26 13:59 | Outpatient (AMB) | payer OTHER, SELFPAY ==
--- NOTE | 2025-01-26 14:05 | A.OFFVIS_ITS ---
VS Expanded 01/26/25 14:16 BP 118/67 Blood Pressure Location Rt brachial Blood Pressure Position Sitting Pulse 90 Pulse Source Pulse Oximeter Temp 97.6 F Temperature Source Temporal Artery Scan Pulse Oximetry 99 Oxygen Delivery Method Room Air Height 5 ft 6 in Weight 197 lb 6.4 oz BMI 31.9 Body Fat % 42.1 Body Fat Mass 83.2 Fat Free Mass 114.2 Visceral Fat Rating 9.0 Body Water % 41.5 Body Water Mass 81.8 Muscle Mass/Score 108.4 Basal Metabolic Rate/Score 1,601 Intake Visit Reasons: (OV) PO LSG 01/20/25 Allergies metformin Allergy (Verified 01/26/25 14:19) Diarrhea shellfish derived Allergy (Verified 01/26/25 14:19) Diarrhea, vomiting, nausea. HPI Comments Details: This?a?39?yo female who is s/p LSG without hiatal hernia repair on?01/20/2025. Presents for 6 day post op visit. Weight today is 197.4 pounds, with a BMI of 31.9. There has been a 53 pound weight loss,(initial weight 250.4 pounds) since starting the program on 10/29/2024 reflecting a 21.1 % total body weight loss and a weight loss of 16 pounds since surgery (operative weight 213.4 pounds) reflecting a 7.4 % TBWL since surgery. No complaints of nausea, emesis, abdominal pain or reflux. Present meal plan includes: Patient is tolerating 3 protein 2.0 drinks, 8 oz each, at 10-12, 2-4, 6-8. She is drinking about 40-45 oz per day. She has moved her bowels. [facility] Medical History (Updated 01/21/25 @ 00:02 by Tacho Dadale) H/O hidradenitis suppurativa History of MRSA infection Mood disorder PTSD (post-traumatic stress disorder) Anxiety Depression Sleep apnea Morbid obesity Hypertension Fatty liver Chronic headaches GERD (gastroesophageal reflux disease) High triglycerides IBS (irritable bowel syndrome) PCOS (polycystic ovarian syndrome) Surgical History (Updated 01/26/25 @ 14:19 by Surekha Hopkins CMA) S/P gastric sleeve procedure History of surgical removal of skin lesion H/O colonoscopy History of esophagogastroduodenoscopy (EGD) History of bladder surgery Family History Mother No problems noted. Father TIA (transient ischemic attack) Depression Anxiety Daughter No problems noted. Daughter No problems noted. Social History Household Members: Significant Other, Family and Children Housing: House Are you a primary human services care specialist to a significant other at home: No Do you presently have visiting nurse or other home services: No Alcohol intake: never Comment: FRANNIE 07/16/24 Patient Tobacco Use Status: Former Tobacco user service: No Current occupational status: employed Physical Exam Vital Signs: Last Vital Signs Temp 97.6 F 01/26/25 14:16 Pulse 90 01/26/25 14:16 BP 118/67 01/26/25 14:16 Pulse Ox 99 01/26/25 14:16 Oxygen Delivery Method Room Air 01/26/25 14:16 BMI result Body Mass Index 31.9 GI Inspection: Yes incision (Clean, dry, intact.) Assessment & Plan Assessment & Plan (1) Status post laparoscopic sleeve gastrectomy: Code(s): Z98.84 - Bariatric surgery status Category: Surgical Plan: POD 6 s/p LSG on 01/20/[address] Tesfaye Weight loss prior to surgery was 37 pounds or 14.7 % TBWL. Original weight on 10/29/2024 was 250.4 pounds and op weight was 213.4 pounds. Be sure to text Dr Tesfaye exactly 1 week after surgery your weight from your home scale so he can adjust your meal plan. Continue meal plan until f/u w Maria May shower, no submersion in bath for another week Continue abdominal binder with activity and exercise for the next 2 weeks. Exercise prior to surgery was stationary bike and may resume No abdominal exercises for 6 weeks post operatively Will be emailed link to post op video for review Reminded of the pace of drinking, 2 mL per minute, 1 oz/15 min.
[2025-01-26 14:16] VITALS: BP 118/67; PULSE 90; TEMP 36.4; O2SAT 99; BMI 31.9
== END 2025-01-26 14:45 | disposition home or self-care (01) ==
LOC: HO.HBS 14:00
PROVIDERS: PCP Student in an Organized Health Care Education/Training Program; Visit Provider Physician Assistant Surgical
DX: Z98.84 Bariatric surgery status (principal)
CPT/HCPCS: 99024

== ENCOUNTER 2025-02-01 11:51 | Outpatient (AMB) | payer OTHER, SELFPAY ==
--- NOTE | 2025-02-01 11:35 | A.OFFWM_ITS ---
Intake Intake Visit Reasons: TV PO LSG 01/20/25 Allergies metformin Allergy (Verified 01/26/25 14:19) Diarrhea shellfish derived Allergy (Verified 01/26/25 14:19) Diarrhea, vomiting, nausea. [facility] Medical History (Updated 01/21/25 @ 00:02 by Tacho Molina) H/O hidradenitis suppurativa History of MRSA infection Mood disorder PTSD (post-traumatic stress disorder) Anxiety Depression Sleep apnea Morbid obesity Hypertension Fatty liver Chronic headaches GERD (gastroesophageal reflux disease) High triglycerides IBS (irritable bowel syndrome) PCOS (polycystic ovarian syndrome) Surgical History (Updated 01/26/25 @ 14:19 by Surekha Hopkins CMA) S/P gastric sleeve procedure History of surgical removal of skin lesion H/O colonoscopy History of esophagogastroduodenoscopy (EGD) History of bladder surgery Family History Mother No problems noted. Father TIA (transient ischemic attack) Depression Anxiety Daughter No problems noted. Daughter No problems noted. Social History Household Members: Significant Other, Family and Children Housing: House Are you a primary residential care officer to a significant other at home: No Do you presently have visiting nurse or other home services: No Alcohol intake: never Comment: FRANNIE 07/16/24 Patient Tobacco Use Status: Former Tobacco user service: No Current occupational status: employed Behavioral Health Assessment Weight Management Therapy Therapy Notes Details Subjective: The patient underwent weight loss surgery on 01/20/2025. Her weight on the day of surgery was 206 lbs; today, she weighs 194 lbs. She denies any pain or complications related to her recovery and reports tolerating the liquid diet well. She returned to work last week and describes her mood as variable, with periods of fatigue, overstimulation, and exhaustion by the end of the day. She received support from her mother immediately after surgery and continues to have support from her at home. The patient reports no physical sensation of hunger but acknowledges occasional thoughts about food. She also discussed ongoing family-related stressors that are impacting her mood and energy levels. Objective: The patient presented for a behavioral health post-operative follow-up. A guided emotional check-in was completed. Psychoeducation was provided on common emotional adjustments after bariatric surgery. CBT-based interventions were used to help her identify and reframe unhelpful thoughts about food and stress, and behavioral activation strategies were introduced to support energy management and routine building. Mindfulness techniques were practiced to increase awareness of physical and emotional needs. The importance of following WMP guidelines was reinforced, and program resources were offered. Assessment/Response: * Mental status: Variable mood. Good functioning overall. * Risk reported/identified: None Assessment & Plan Assessment & Plan (1) Complex posttraumatic stress disorder: Code(s): F43.10 - Post-traumatic stress disorder, unspecified (2) Status post laparoscopic sleeve gastrectomy: Code(s): Z98.84 - Bariatric surgery status Plan -Continue behavioral health post-operative support sessions every 2?4 weeks to monitor adjustment and address any emerging concerns, given client?s history of mental health issues. -Ongoing focus will include: * Monitoring mood, anxiety, and adjustment to post-surgical lifestyle changes * Reinforcing coping strategies for managing cravings, emotional eating, and stress * Supporting adherence to dietary and physical activity recommendations * Addressing any barriers to progress and providing psychoeducation as needed -Encourage continued self-monitoring of weight, mood, and behavioral triggers. -Client encouraged to reach out between sessions if any acute concerns or challenges arise and to keeo weekly communication with surgeon. -Next appointment scheduled for 02/21/2025. Telehealth Telehealth Telehealth Platform: [employer] Location of provider rendering services: other (Home office. [place], [place]) Location of patient: address on file Patient Identification confirmed using: Name, : Yes Telehealth method: video Patient verbally consented to treatment: Yes Patient verbally consented to billing insurance company: Yes Patient informed of any privacy concerns related to visit: Yes Minutes spent on Phone/Video with Pt.: 60 [place] [address] Tele Psytx >53 mins Patient Type Established Diagnoses Complex posttraumatic stress disorder F43.10 Status post laparoscopic sleeve gastrectomy Z98.84 Time Spent (min) 60
== END 2025-02-01 12:59 | disposition home or self-care (01) ==
LOC: HO.HBST 11:51
PROVIDERS: PCP Student in an Organized Health Care Education/Training Program; Visit Provider Counselor Mental Health
DX: F43.10 Post-traumatic stress disorder, unspecified (principal); Z98.84 Bariatric surgery status
CPT/HCPCS: 90837

== ENCOUNTER 2025-02-18 11:08 | Outpatient (AMB) | payer OTHER, SELFPAY ==
--- NOTE | 2025-02-18 11:05 | MHC.OFFVISWM ---
VS Expanded 02/18/25 11:16 Height 5 ft 6 in Weight 189 lb 2 oz BMI 30.5 Intake Visit Reasons: TV PO LSG 01/20/25 Allergies metformin Allergy (Verified 01/26/25 14:19) Diarrhea shellfish derived Allergy (Verified 01/26/25 14:19) Diarrhea, vomiting, nausea. Medication List - Last Reconciled 02/18/25 by ANA Baron bupropion HCl XL 300 mg PO DAILY docusate sodium 100 mg PO DAILY doxycycline hyclate (Doryx MPC) 60 mg PO DAILY PRN lamotrigine 200 mg PO DAILY ondansetron 4 mg PO Q12H pantoprazole 40 mg PO DAILY spironolactone 100 mg PO DAILY Held on 01/21/25. Instructions: Resume on 01/21/25. Only resume according to parameters given by Dr. Tesfaye sucralfate 10 mL PO BID HPI Comments Details: This?is a?39?yo F who is s/p LSG 01/20/2025. Presents for 1mo post op visit. Weight loss of 8lbs since last OV 3w ago. No complaints of emesis, abdominal pain or reflux, or constipation. Has some nausea with MVI- takes at 2pm, right after bar. Present meal plan includes: 8-10am [id number] water half bottle 11am-2pm Celebrate protein bar 2-4pm protein bar 3-5pm Rebuild shake 2 scoops 7pm plans to start solid foods with Dr Simon (was doing bar here) Exercise routine includes: reports exercise every day is not feasible for her does 5 days 500 calories typically, but was doing 30 min 5x/week [facility] Medical History (Updated 01/21/25 @ 00:02 by Background Dadale) H/O hidradenitis suppurativa History of MRSA infection Mood disorder PTSD (post-traumatic stress disorder) Anxiety Depression Sleep apnea Morbid obesity Hypertension Fatty liver Chronic headaches GERD (gastroesophageal reflux disease) High triglycerides IBS (irritable bowel syndrome) PCOS (polycystic ovarian syndrome) Surgical History (Updated 01/26/25 @ 14:19 by Surekha Hopkins CMA) S/P gastric sleeve procedure History of surgical removal of skin lesion H/O colonoscopy History of esophagogastroduodenoscopy (EGD) History of bladder surgery Family History Mother No problems noted. Father TIA (transient ischemic attack) Depression Anxiety Daughter No problems noted. Daughter No problems noted. Social History Household Members: Significant Other, Family and Children Housing: House Are you a primary director of critical care to a significant other at home: No Do you presently have visiting nurse or other home services: No Alcohol intake: never Comment: FRANNIE 07/16/24 Patient Tobacco Use Status: Former Tobacco user service: No Current occupational status: employed Telehealth Telehealth Telehealth Platform: Telephone Location of provider rendering services: practice address Location of patient: address on file Patient Identification confirmed using: Name, : Yes Telehealth method: voice only Patient verbally consented to treatment: Yes Patient verbally consented to billing insurance company: Yes Patient informed of any privacy concerns related to visit: Yes Minutes spent on Phone/Video with Pt.: 16 Assessment & Plan Assessment & Plan (1) Obesity: Code(s): E66.9 - Obesity, unspecified Category: Medical Qualifiers: Obesity type: due to excess calories Obesity classification: adult class 1 (BMI 30 - 34.9) Serious obesity comorbidity presence: with serious comorbidity Body mass index: BMI 34.0-34.9 Qualified Code(s): E66.811 - Obesity, class 1; E66.09 - Other obesity due to excess calories; Z68.34 - Body mass index [BMI] 34.0-34.9, adult (2) Status post laparoscopic sleeve gastrectomy: Code(s): Z98.84 - Bariatric surgery status Category: Surgical Plan Can use Isopure protein powder (20g) in 8oz water instead of Rebuild in afternoons if she wants. Will work on exercising to goal. Try taking MVI with meal or open capsule and dissolve granules in liquid. Reviewed no heavy lifting until 6w postop. RTC 2 mo phone visit 15min. Medications: Refilled ondansetron Only take one every 12 hours as needed if you have nausea 4 mg PO Q12H 20 tabs 0RF nausea and vomiting R11.0 - Nausea
[2025-02-18 11:16] VITALS: BMI 30.5
== END 2025-02-18 11:22 | disposition home or self-care (01) ==
LOC: HO.HBS 11:08
PROVIDERS: PCP Student in an Organized Health Care Education/Training Program; Visit Provider Physician Assistant Surgical
DX: E66.811 Obesity, class 1 (principal); E66.09 Other obesity due to excess calories; Z68.34 Body mass index [BMI] 34.0-34.9, adult; Z98.84 Bariatric surgery status
CPT/HCPCS: 99024

== ENCOUNTER 2025-02-21 12:08 | Outpatient (AMB) | payer OTHER, SELFPAY ==
--- NOTE | 2025-02-21 12:00 | MHC.WMTHER ---
Intake Intake Visit Reasons: VIDEO PO LSG 01/20/25 Allergies metformin Allergy (Verified 01/26/25 14:19) Diarrhea shellfish derived Allergy (Verified 01/26/25 14:19) Diarrhea, vomiting, nausea. [facility] Medical History (Updated 01/21/25 @ 00:02 by Tacho Molina) H/O hidradenitis suppurativa History of MRSA infection Mood disorder PTSD (post-traumatic stress disorder) Anxiety Depression Sleep apnea Morbid obesity Hypertension Fatty liver Chronic headaches GERD (gastroesophageal reflux disease) High triglycerides IBS (irritable bowel syndrome) PCOS (polycystic ovarian syndrome) Surgical History (Updated 01/26/25 @ 14:19 by Surekha Hopkins CMA) S/P gastric sleeve procedure History of surgical removal of skin lesion H/O colonoscopy History of esophagogastroduodenoscopy (EGD) History of bladder surgery Family History Mother No problems noted. Father TIA (transient ischemic attack) Depression Anxiety Daughter No problems noted. Daughter No problems noted. Social History Household Members: Significant Other, Family and Children Housing: House Are you a primary intensive care medicine specialist to a significant other at home: No Do you presently have visiting nurse or other home services: No Alcohol intake: never Comment: FRANNEI 07/16/24 Patient Tobacco Use Status: Former Tobacco user service: No Current occupational status: employed Behavioral Health Assessment Weight Management Therapy Therapy Notes Details Subjective: The patient reports experiencing some ups and downs in her weight loss journey, particularly after a misunderstanding with her surgeon and a recent weight loss setback. She is working on not taking things personally and reminding herself of her long-term goals. She identifies the number on the scale?specifically, I lost only 1 lb ?as a significant trigger for negative emotions. The patient is making efforts to exercise at least five days per week. She recently met with Maria and reports feeling positive about the feedback received from the provider. Objective: The patient presented for a post-operative behavioral health follow-up appointment via telehealth. During the session, we discussed her current functioning, progress, and needs, and processed recent triggers. Explored her emotional responses and identified strategies to reframe negative thoughts and maintain focus on her goals. Validated and normalized her feelings, and praised her progress and self-awareness. Practiced a mindfulness exercise to interrupt negative self-talk and rumination, and reviewed additional coping skills to support self-confidence. Also discussed and reinforced recognition of non-scale victories. Assessment/Response: Mental status: lert and oriented x3. Mood mildly frustrated but overall stable. No evidence of acute distress, psychosis, or cognitive impairment. Risk reported/identified: none Food/Weight/Diet Expectations of change PO weight 02/21/25: 187Lbs Pt's PO target weight: 130-150Lbs - or a healthy BMI. Meal plan: 2 shakes, 1 bar and 1 meal (cottage cheese, scrambled eggs or yogurt) Excercise: 1hr bike 5 days at week. Assessment & Plan Assessment & Plan (1) Complex posttraumatic stress disorder: Code(s): F43.10 - Post-traumatic stress disorder, unspecified (2) Status post laparoscopic sleeve gastrectomy: Code(s): Z98.84 - Bariatric surgery status Plan Encourage the patient to track non-scale victories and positive behavioral changes to reinforce progress beyond weight alone. Next behavioral health follow-up scheduled for 03/14/2025 at 12:00 PM via video. [facility]health [facility] Location of provider rendering services: other (Home office. [place], [place]) Location of patient: address on file Patient Identification confirmed using: Name, : Yes Telehealth method: video Patient verbally consented to treatment: Yes Patient verbally consented to billing insurance company: Yes Patient informed of any privacy concerns related to visit: Yes Minutes spent on Phone/Video with Pt.: 60 Coding Level of Care Code Established Pt Tele Psytx >53 mins (30170) Patient Type Established Diagnoses Complex posttraumatic stress disorder F43.10 Status post laparoscopic sleeve gastrectomy Z98.84 Time Spent (min) 60
== END 2025-02-21 13:03 | disposition home or self-care (01) ==
LOC: HO.HBST 12:08
PROVIDERS: PCP Student in an Organized Health Care Education/Training Program; Visit Provider Counselor Mental Health
DX: F43.10 Post-traumatic stress disorder, unspecified (principal); Z98.84 Bariatric surgery status
CPT/HCPCS: 90837

== ENCOUNTER 2025-03-31 11:12 | Outpatient (AMB) | payer OTHER, SELFPAY ==
--- NOTE | 2025-03-31 11:11 | A.OFFWM_ITS ---
Intake Intake Visit Reasons: VIDEO PO LSG 01/20/25 Allergies metformin Allergy (Verified 05/04/25 10:11) Diarrhea shellfish derived Allergy (Verified 05/04/25 10:11) Diarrhea, vomiting, nausea. [facility] Medical History H/O hidradenitis suppurativa History of MRSA infection Mood disorder PTSD (post-traumatic stress disorder) Anxiety Depression Sleep apnea Morbid obesity Hypertension Fatty liver Chronic headaches GERD (gastroesophageal reflux disease) High triglycerides IBS (irritable bowel syndrome) PCOS (polycystic ovarian syndrome) Surgical History S/P gastric sleeve procedure History of surgical removal of skin lesion H/O colonoscopy History of esophagogastroduodenoscopy (EGD) History of bladder surgery Family History Mother No problems noted. Father TIA (transient ischemic attack) Depression Anxiety Daughter No problems noted. Daughter No problems noted. Social History Household Members: Significant Other, Family and Children Housing: House Are you a primary primary care nurse practitioner to a significant other at home: No Do you presently have visiting nurse or other home services: No Alcohol intake: never Comment: FRANNIE 07/16/24 Patient Tobacco Use Status: Former Tobacco user service: No Current occupational status: employed Behavioral Health Assessment Weight Management Therapy Therapy Notes Details Subjective: The patient reports feeling motivated but fatigued. She is adhering to her meal plan and, although not consistently using her stationary bike, she has joined a fitness club and is participating in a variety of workout classes, aiming for 3?4 sessions per week. She is experiencing steady weight loss, averaging 2.5 lbs per week, with a current weight of 169 lbs and a goal of 145?150 lbs. She is checking in with Dr. Davis every two weeks. The patient describes ongoing, pervasive stress related to finances, her and her ?s work schedules, and increased work-related demands, though she notes that home dynamics are stable. She recently had an initial visit with a new prescriber, Dr. Dinora Dozier, who diagnosed her with ADD and started her on Adderall, which she finds b eneficial. Her current medications are lamotrigine (Lamictal) 200 mg daily and amphetamine salts (Adderall) 20 mg 1?2 times daily; bupropion 300 mg has been discontinued. She reports her mood as good, though her sleep remains variable. Objective: In today?s session, we explored the patient?s current stressors, particularly financial concerns and the impact of recent financial decisions. Cognitive- behavioral interventions were utilized to help her identify and challenge unhelpful thoughts related to financial stress and to develop more adaptive coping strategies. We reviewed her symptom management skills, focusing on behavioral activation to maintain her exercise routine and structured problem- solving to address barriers to consistent physical activity. The patient was guided through the use of a stress log to increase awareness of triggers and patterns, and we practiced relaxation techniques, including diaphragmatic breathing, to help manage acute stress. Psychoeducation was provided regarding the effects of stimulant medication on sleep and strategies for improving sleep hygiene. The patient was engaged and receptive, demonstrating insight and motivation to implement these strategies. Assessment/Response: * Mental status: Alert, oriented, and appropriately groomed. Mood described as ?well, but tired.? Affect congruent. Thought process logical and goal- directed. No suicidal or homicidal ideation. No evidence of psychosis. Insight and judgment intact. * Risk reported/identified: No current safety concerns or risk behaviors id entified. Assessment & Plan Assessment & Plan (1) Complex posttraumatic stress disorder: Code(s): F43.10 - Post-traumatic stress disorder, unspecified (2) Status post laparoscopic sleeve gastrectomy: Code(s): Z98.84 - Bariatric surgery status Plan Continue behavioral health support with a focus on stress management, sleep hygiene, and maintenance of healthy routines. Reinforce use of CBT-based coping skills and monitor response to new medication regimen. * Follow-up in 3 weeks, scheduled for 04/20/25 at 12:00 pm via video. Telehealth Telehealth Telehealth Platform: [facility] Location of provider rendering services: practice address Location of patient: address on file Patient Identification confirmed using: Name, : Yes Telehealth method: video Patient verbally consented to treatment: Yes Patient verbally consented to billing insurance company: Yes Patient informed of any privacy concerns related to visit: Yes Minutes spent on Phone/Video with Pt.: 50 [place] [address] Tele Psytx 45 mins Patient Type Established Diagnoses Complex posttraumatic stress disorder F43.10 Status post laparoscopic sleeve gastrectomy Z98.84 Time Spent (min) 50
== END 2025-03-31 12:22 | disposition home or self-care (01) ==
LOC: HO.HBST 11:12
PROVIDERS: PCP Student in an Organized Health Care Education/Training Program; Visit Provider Counselor Mental Health
DX: F43.10 Post-traumatic stress disorder, unspecified (principal); Z98.84 Bariatric surgery status
CPT/HCPCS: 90834

== ENCOUNTER 2025-04-20 09:22 | Emergency (ER) | payer OTHER, SELFPAY ==
[2025-04-20 09:29] VITALS: BP 113/56; PULSE 90; RESP 16; TEMP 37; O2SAT 100; BMI 26.3
--- NOTE | 2025-04-20 09:38 | PC.NURSE ---
external hemorrhoid x 2 days, any bearing down or pressure causes extreme pain. no bleeding. tried hydrocortisone suppository with some relief. has had BM`s and is passing gas
--- NOTE | 2025-04-20 09:51 | ED_ITS ---
HPI - General Adult General Chief complaint: General Medical Stated complaint: General Medical Time Seen by Provider: 04/20/25 09:38 Source: patient, RN notes reviewed and old records reviewed Mode of arrival: ambulatory History of Present Illness ED Provider: Mary Pascal PA-C [facility] narrative: 39-year-old female with a past medical history GERD, PCOS, PTSD, anxiety, depression, sleep apnea, HTN, presenting to the ED complaining of painful hemorrhoid x yesterday. Reports constipation earlier this week with mild bleeding at that time. Denies any rectal bleeding at present, dysuria/hematuria, abdominal pain. Related Data Home Medications ?Medication ?Instructions ?Recorded ?Confirmed doxycycline hyclate 60 mg 60 mg PO DAILY PRN Flare up acne. 05/21/24 02/18/25 tablet,delayed release (Doryx MPC) spironolactone 50 mg tablet 100 mg PO DAILY 05/21/24 0 02/18/25 Held on 01/21/25. Instructions: Resume on 01/21/25. Only resume according to parameters given by Dr. Tesfaye bupropion HCl 300 mg 24 hr tablet, 300 mg PO DAILY 06/0202/18/25 extended release docusate sodium 100 mg capsule 100 mg PO DAILY 5 02/18/25 lamotrigine 100 mg tablet 200 mg PO DAILY 01/12/2506/02 Previous Rx's ?Medication ?Instructions ?Recorded pantoprazole 40 mg tablet,delayed 40 mg PO DAILY #90 t abs 01/09/25 release sucralfate 100 mg/mL oral 10 ml PO BID #600 mL 5 suspension ondansetron 4 mg disintegrating 4 mg PO Q12H nausea an d vomiting 02/18/25 tablet #20 tabs cephalexin 500 mg capsule 500 mg PO QID 7 days #28 cap s 04/20/25 hydrocortisone 1 % topical cream 1 appl topical BID IN N skin 04/20/25 (Preparation H Hydrocortisone) irritation #28.35 grams Allergies Allergy/AdvReac Type Severity Reaction Status Date / Time metformin Allergy Diarrhea Verified 04/20/25 09:30 shellfish derived Allergy Diarrhea, Verified 04/20/25 09:30 vomiting, nausea. Review of Systems Review of Systems: Yes all other systems are reviewed and are negative Constitutional: Constitutional: Reports as per HPI [facility] Past Medical History Attestation statement: The following information was validated with the patient. Source: old records reviewed Medical History H/O hidradenitis suppurativa History of MRSA infection Mood disorder PTSD (post-traumatic stress disorder) Anxiety Depression Sleep apnea Morbid obesity Hypertension Fatty liver Chronic headaches GERD (gastroesophageal reflux disease) High triglycerides IBS (irritable bowel syndrome) PCOS (polycystic ovarian syndrome) Surgical History S/P gastric sleeve procedure History of surgical removal of skin lesion H/O colonoscopy History of esophagogastroduodenoscopy (EGD) History of bladder surgery Family History Family History Mother No problems noted. Father TIA (transient ischemic attack) Depression Anxiety Daughter No problems noted. Daughter No problems noted. Social History Social History Household Members: Significant Other, Family and Children Housing: House Are you a primary childbirth and infant care teacher to a significant other at home: No Do you presently have visiting nurse or other home services: No Alcohol intake: never Comment: FRANNIE 07/16/24 Patient Tobacco Use Status: Former Tobacco user Smoked in Last 30 Days: No Use of substances other than those prescribed or required for medical reasons: No Advance Directives: No Advance Directives Information Provided: No service: No Current occupational status: employed Physical Exam ED Vital Signs: Vital Signs - 24 hr 04/20/25 09:29 Temperature 98.6 F Pulse Rate 90 Respiratory Rate 16 Blood Pressure 113/56 L Pulse Oximetry 100 Oxygen Delivery Method Room Air BMI result Body Mass Index 26.3 Const General: cooperative, healthy appearing and no acute distress Orientation/consciousness: patient oriented x3 Limitations: no limitations HENMT Head: Yes normal to inspection and Yes atraumatic Ears: hearing grossly normal bilaterally General nose exam: Normal external nose present Face and sinus: Yes normal facial exam Eyes General: appearance normal, both eyes and all related structures EOM: EOMs intact bilaterally Neck Neck: Yes normal visual inspection and Yes no meningeal signs Resp Effort & Inspection: normal respiratory effort and no respiratory distress Cardio Rate: regular rate GI Rectal Exam - Female: External hemorrhoid(s) present (left side, thrombosed, +ttp) Skin Rashes: no rashes Wounds: no wounds Neuro General: patient oriented x3, tone normal and no meningeal signs Cranial nerves: Yes CN's II-XII intact bilaterally Gait exam (Neuro): Normal gait present Extrem General: Yes normal to inspection Course Course Course Narrative: -thrombosed hemorrhoid excised at bedside with Dr. Justice. No complications. Results discussed with patient including worrisome signs and symptoms and strict return precautions, and when to return to the emergency department. They verbalized understanding and feel safe for discharge at this time. Medications Administered Discontinued Medications Generic Name Dose Route Start Last Admin Trade Name Laz PRN Reason Stop Dose Admin Lidocaine HCl 1 appl 04/20/25 09:58 04/20/25 10:15 Lidocaine 4 % Cream Kit TOPICAL 04/20/25 09:59 1 appl ONCE ONE Administration Protocol Lidocaine/Epinephrine 5 ml 04/20/25 10:00 04/20/25 10:54 Lidocaine Hcl 1%/Epi 1:100,000 10 Ml Vial INFILTRATI 04/20/25 10:01 5 ml ONCE ONE Administration Procedures Abscess I/D Site: other (Hemorrhoid) Side (if applicable): left Local Anesthetic: lidocaine 1% and with epi Amount of anesthesia used (mL): 7 Technique: incised with blade Sent for culture/gram staining?: No Irrigation: No Packing used?: none Medical Decision Making Medical Decision Making MDM Narrative: 39-year-old female with a past medical history GERD, PCOS, PTSD, anxiety, depression, sleep apnea, HTN, presenting to the ED complaining of painful hemorrhoid x yesterday. On exam vital signs stable, NAD, nontoxic appearing, thrombosed hemorrhoid noted on rectal exam. Plan for excision. No evidence of cellulitis. No active bleeding Plan: I & D Please refer to course for remaining clinical decision making, interpretation of labs/imaging results, and discussions with consultants and/or family members. Differential Diagnosis Differential Diagnoses: The differential diagnosis associated with the presentation includes As above External Record Review External record reviewed: Inpatient record, Office record, Outpatient record, Prior outpatient labs, Prior outpatient radiology, Primary care record and Outside ED record Tests considered The following testing was considered but not selected: As above Prescription Management I considered prescription management with: Pain Medication and Antibiotic Chronic Conditions Patient?s care impacted by: Other Social Determinants Patient?s care significantly limited by Social Determinants of Health including: Other Social Determinant of Health Discharge Plan Discharge Clinical Impression: External hemorrhoid, thrombosed Patient Disposition: Home, Self-Care Instructions: Hemorrhoids (DC), Sitz Bath (DC) Additional Instructions: Your thrombosed hemorrhoid was opened today Keflex as an oral antibiotic please take as prescribed until completion Preparation H as a topical cream which will help with inflammation/pain Please keep area clean and dry. Soap and water is the best PRACTICE SITZ BATHS. YOU MAY ALSO USE WITCH ROMARIO You need to follow-up with colorectal specialist. Please call to make an appointment If area becomes increasingly painful, you have fever, difficulty or inability to have a bowel movement return to the ED immediately Prescriptions: New cephalexin 500 mg capsule 500 mg PO QID 7 Days Qty: 28 0RF hydrocortisone [Preparation H Hydrocortisone] 1 % cream 1 appl topical BID PRN (Reason: skin irritation) Qty: 28.35 0RF No Action spironolactone 50 mg tablet 100 mg PO DAILY Rx Instructions: Last filled 05/03/24 Doryx MPC 60 mg tablet,delayed release (DR/EC) 60 mg PO DAILY PRN (Reason: Flare up acne.) lamotrigine 100 mg tablet 200 mg PO DAILY Patient Comments: Patient to discuss with Dr. Ulrich when to increase to 100 mg daily. Rx Instructions: Patient has not started. She is currently taking 75 mg daily. docusate sodium 100 mg Capsule 100 mg PO DAILY sucralfate 100 mg/mL suspension 10 ml PO BID Qty: 600 2RF pantoprazole 40 mg tablet,delayed release (DR/EC) 40 mg PO DAILY Qty: 90 0RF bupropion HCl 300 mg tablet extended release 24 hr 300 mg PO DAILY ondansetron 4 mg tablet,disintegrating 4 mg PO Q12H Qty: 20 0RF Rx Instructions: Only take one every 12 hours as needed if you have nausea Referrals: [facility] [Provider Group, General Surgery] - 5 days Jessi Leal MD [Primary Care Provider, Primary Care] - 1 week Print Language: Portuguese
[2025-04-20] MEDS: Lidocaine 4 % Cream KIT 1 APPL TOPICAL (10:15)
[2025-04-20] MEDS: Lidocaine HCl 1%/Epi 1:100,000 10 ML VIAL 5 ML INFILTRATI (10:54)
[2025-04-20 11:54] VITALS: BP 113/56; PULSE 90; RESP 16; TEMP 37; O2SAT 100
== END 2025-04-20 11:55 | disposition home or self-care (01) ==
PROVIDERS: Emergency Provider Emergency Medicine; PCP Student in an Organized Health Care Education/Training Program
DX: K64.5 Perianal venous thrombosis (principal); I10 Essential (primary) hypertension
CPT/HCPCS: 46083; 99284; J2004

== ENCOUNTER 2025-04-20 12:27 | Outpatient (AMB) | payer OTHER, SELFPAY ==
--- NOTE | 2025-04-20 12:00 | MHC.WMTHER ---
Intake Intake Visit Reasons: VIDEO PO LSG 01/20/25 Allergies metformin Allergy (Verified 05/04/25 10:11) Diarrhea shellfish derived Allergy (Verified 05/04/25 10:11) Diarrhea, vomiting, nausea. [facility] Medical History H/O hidradenitis suppurativa History of MRSA infection Mood disorder PTSD (post-traumatic stress disorder) Anxiety Depression Sleep apnea Morbid obesity Hypertension Fatty liver Chronic headaches GERD (gastroesophageal reflux disease) High triglycerides IBS (irritable bowel syndrome) PCOS (polycystic ovarian syndrome) Surgical History S/P gastric sleeve procedure History of surgical removal of skin lesion H/O colonoscopy History of esophagogastroduodenoscopy (EGD) History of bladder surgery Family History Mother No problems noted. Father TIA (transient ischemic attack) Depression Anxiety Daughter No problems noted. Daughter No problems noted. Social History Household Members: Significant Other, Family and Children Housing: House Are you a primary care provider to a significant other at home: No Do you presently have visiting nurse or other home services: No Alcohol intake: never Comment: FRANNIE 07/16/24 Patient Tobacco Use Status: Former Tobacco user service: No Current occupational status: employed Behavioral Health Assessment Weight Management Therapy Therapy Notes Details Subjective: The patient reports feeling less depressed overall but continues to experience significant anxiety. She describes becoming easily distracted and overwhelmed by thoughts of everything she needs to do, but struggles to organize herself to get started. When this occurs, she often becomes stuck on the sofa and is unable to complete tasks, particularly at home. She notes difficulty prioritizing and finishing tasks. Despite these challenges, she continues to attend workout classes 2?3 times per week, with family support for childcare. Objective: The patient participated in a behavioral health post-operative telehealth session. CBT-based interventions were utilized, including cognitive restructuring to address negative self-talk and perfectionistic thinking that contribute to avoidance and feeling overwhelmed. Behavioral activation strategies were introduced, such as breaking tasks into smaller, manageable steps and using scheduling tools to improve organization and task initiation. Psychoeducation was provided on the relationship between anxiety, executive functioning, and avoidance behaviors. The patient was encouraged to practice mindfulness and grounding techniques to manage anxiety in the moment. Supportive counseling reinforced her ongoing engagement in physical activity and the importance of self-compassion during recovery. Assessment/Response: Mental status: Alert and oriented ?4. Appearance appropriate. Mood mildly anxious, affect congruent. Thought process logical and coherent. No evidence of psychosis. Insight and judgment intact. Risk reported/identified: No suicidal or homicidal ideation, self-harm, or other safety concerns identified. Assessment & Plan Assessment & Plan (1) Complex posttraumatic stress disorder: Code(s): F43.10 - Post-traumatic stress disorder, unspecified (2) Status post laparoscopic sleeve gastrectomy: Code(s): Z98.84 - Bariatric surgery status Plan Continue behavioral health support post-operatively. Patient will return in approximately 6?8 weeks due to provider?s upcoming vacation. Next appointment scheduled for 06/17/2025 at 2:00 PM via video. [place] [id number] Tele Psytx >53 mins Patient Type Established Diagnoses Complex posttraumatic stress disorder F43.10 Status post laparoscopic sleeve gastrectomy Z98.84 Time Spent (min) 60
== END 2025-04-20 13:07 | disposition home or self-care (01) ==
LOC: HO.HBST 12:27
PROVIDERS: PCP Student in an Organized Health Care Education/Training Program; Visit Provider Counselor Mental Health
DX: F43.10 Post-traumatic stress disorder, unspecified (principal); Z98.84 Bariatric surgery status
CPT/HCPCS: 90837

== ENCOUNTER 2025-04-22 09:59 | Outpatient (AMB) | payer OTHER, SELFPAY ==
--- NOTE | 2025-04-22 10:04 | MHC.OFFVISWM ---
VS Expanded 04/22/25 10:06 Height 5 ft 6 in Weight 157 lb 8 oz BMI 25.4 Intake Visit Reasons: phone- PO LSG 01/20/25 Allergies metformin Allergy (Verified 04/20/25 09:30) Diarrhea shellfish derived Allergy (Verified 04/20/25 09:30) Diarrhea, vomiting, nausea. Medication List - Last Reconciled 04/22/25 by ANA Baron bupropion HCl XL 300 mg PO DAILY cephalexin 500 mg PO QID 7 days docusate sodium 100 mg PO DAILY doxycycline hyclate (Doryx MPC) 60 mg PO DAILY PRN hydrocortisone 1% (Preparation H Hydrocortisone) 1 appl topical BID PRN lamotrigine 200 mg PO DAILY ondansetron 4 mg PO Q12H pantoprazole 40 mg PO DAILY spironolactone 100 mg PO DAILY Held on 01/21/25. Instructions: Resume on 01/21/25. Only resume according to parameters given by Dr. Tesfaye sucralfate 10 mL PO BID HPI Comments Details: This is a 39 yo F who is s/p LSG 01/20/2025. Presents for 3mo post op visit. Weight loss of 8lbs since last OV at 1mo postop. She notes some pain in RUQ. Worse when sitting. Has had difficulty correlating it to food intake. Gets bouts of nausea off and on but unsure whether they correlate to these episodes of pain. Pt reports having to go to ER for thrombosed hemorrhoid. Ordered Miralax to help with constipation. Present meal plan includes: 8-10am Celebrate Rebuild chong or [id number] water half bottle 11am-2pm Celebrate protein bar 2-4pm protein bar 3-5pm Rebuild shake 2 scoops, didn't end up trying Isopure 7pm solid meal I'm struggling with the food plan at this point occasionally uses a premade Premier MVI- tried opening the capsule into a beverage but it tasted terrible according to pt. Ordered a different MVI on [employer]. Exercise routine includes: starting to enjoy exercise more, doing classes was doing 30 min 5x/week of bike previously Pt reports issues of excess skin of abdomen. She sent some photos to Dr. Simon of increased drainage from belly button. Drainage had an unpleasant odor. Skin here appeared angry red. She has had to increase her cleaning of the area, and has also been using antifungal powder. She also notes irritated skin on each upper arm near armpit- where bra strap rubs against upper arm, looks like a boil. [facility] Medical History H/O hidradenitis suppurativa History of MRSA infection Mood disorder PTSD (post-traumatic stress disorder) Anxiety Depression Sleep apnea Morbid obesity Hypertension Fatty liver Chronic headaches GERD (gastroesophageal reflux disease) High triglycerides IBS (irritable bowel syndrome) PCOS (polycystic ovarian syndrome) Surgical History S/P gastric sleeve procedure History of surgical removal of skin lesion H/O colonoscopy History of esophagogastroduodenoscopy (EGD) History of bladder surgery Family History Mother No problems noted. Father TIA (transient ischemic attack) Depression Anxiety Daughter No problems noted. Daughter No problems noted. Social History Household Members: Significant Other, Family and Children Housing: House Are you a primary home health care coordinator to a significant other at home: No Do you presently have visiting nurse or other home services: No Alcohol intake: never Comment: FRANNIE 07/16/24 Patient Tobacco Use Status: Former Tobacco user service: No Current occupational status: employed Telehealth Telehealth Telehealth Platform: Telephone Location of provider rendering services: other Location of patient: address on file Patient Identification confirmed using: Name, : Yes Telehealth method: voice only Patient verbally consented to treatment: Yes Patient verbally consented to billing insurance company: Yes Patient informed of any privacy concerns related to visit: Yes Minutes spent on Phone/Video with Pt.: 16 Assessment & Plan Assessment & Plan (1) Status post laparoscopic sleeve gastrectomy: Code(s): Z98.84 - Bariatric surgery status Category: Medical (2) Overweight: Code(s): E66.3 - Overweight Category: Medical (3) RUQ pain: Code(s): R10.11 - Right upper quadrant pain Plan Will order RUQ US for pt's complaint of RUQ pain. She will try to track whether pain is related to PO intake. She is doing very well with weight loss and very close to healthy BMI. She will continue to monitor issues of excess skin of abdomen and arms and let us know if any additional problems arise. RTC 3 mo 15min TV. Orders: Orders US abdomen comp w elastography Today R10.11 - Right upper quadrant pain
[2025-04-22 10:06] VITALS: BMI 25.4
--- OUTSIDE RECORDS SUMMARY | 2025-04-22 11:45 | XMS_ITS | Clinical Summary ---
Author Organization [address] [facility] Address [address] [place] [address] Phone Care Team Providers Care Network Operations Lead Name Role Phone Unavailable Primary Care Provider Unavailabl e Social History Tobacco Use Types Packs/Day Years Used Date Smoking Tobacco: Never Assessed Comments Unknown Sex and Gender Information Value Date Recorded Sex Assigned at Not on file Legal Sex Female 1:23 PM EST Gender Identity Not on file Sexual Orientation Not on file Plan of Treatment Upcoming Encounters Date Type Department Care Team ([facility] Contact Info) Description 04/26/2025 10:45 AM EST Consult General Surgery [facility] [address] [facility] [place] [address] [place] [address] Jarad Guerra, DO [address] [place] [id number] Health Maintenance Due Date Last Done Comments DTaP,Tdap,and Td Vaccines (1 - Tdap) 2005 Hepatitis B Vaccines (1 of 3 - 19+ 3-dose series) 2005 Cervical Cancer Screening: P ap Smear 10/12/2007 HPV Vaccines (1 - 3-dose SCD M series) 2013 Depression Screening 06/09/2024 COVID-19 Vaccine ( - 2024-2 6 season) 2025 Influenza Vaccine (#1) 2025 HIV Screening 04/21/2025 Hepatitis C Screening 04/21/2025 Social Influencers of Health Screening 04/21/2025 RSV Immunization Adult Patie nts (1 - 1-dose 75+ series) 2061 HIB Vaccines Aged Out No longer eligi ble based on patient's age to complete this topic Hepatitis A Vaccines Aged Out No long er eligible based on patient's age to complete this topic IPV Vaccines Aged Out No longer eligi ble based on patient's age to complete this topic MMR Vaccines Aged Out No longer eligi ble based on patient's age to complete this topic Meningococcal ACWY Vaccine Aged Out N o longer eligible based on patient's age to complete this topic Meningococcal B Vaccine Aged Out No l onger eligible based on patient's age to complete this topic Pneumococcal Vaccine: Pediat rics (0 to 5 Years) and At-Risk Patients (6 to 49 Years) Aged Out No longer eligible b ased on patient's age to complete this topic RSV Immunization Patients Un mariann 20 months Aged Out No longer eligible b ased on patient's age to complete this topic Varicella Vaccines Aged Out No longer eligible based on patient's age to complete this topic Insurance [facility]
== END 2025-04-22 10:33 | disposition home or self-care (01) ==
LOC: HO.HBS 09:59
PROVIDERS: PCP Student in an Organized Health Care Education/Training Program; Visit Provider Physician Assistant Surgical
DX: E66.3 Overweight (principal); Z68.25 Body mass index [BMI] 25.0-25.9, adult; R10.11 Right upper quadrant pain; Z90.3 Acquired absence of stomach [part of]; Z98.84 Bariatric surgery status
CPT/HCPCS: 98013

== ENCOUNTER 2025-05-04 09:58 | Outpatient (AMB) | payer OTHER, SELFPAY ==
--- OUTSIDE RECORDS SUMMARY | 2025-05-02 08:30 | XMS_ITS | Encounter Summary ---
Author Organization [facility] Address [address] [place] [address] Care Team Providers Care Plastic Surgery Nurse Name Role Phone Jessi Leal MD Primary Care Provider [phone] Reason for Visit * Reason Comments Consult ANALYST- axilla lesion * Consultation (Routine) - Authorized Specialty Diagnoses / Procedures Referred By Carol t Referred To Contact Plastic Surgery Diagnoses S/P gastric sleeve procedure Jarad Guerra DO [address] [place] [address] Phone: tel: fax: Plastic & Reconstructive Surgery [address] [address] Phone: tel: fax: Referral ID Status Reason Start Date Expiration Date Visits Requested Visits Authorized [id number] Authorized Specialty Services Required 04/26/2026 1 1 Encounter Details Date Type Department Care Team (Late st Contact Info) Description 05/02/2025 8:30 AM EST Consult Plastic & Reconstructive Surgery [address] [phone] Teresa Huertas PA [address] [place] [phone] Hidradenitis suppurativa (Primary Dx); Scar tissue Social History Tobacco Use Types Packs/Day Years Used Date Smoking Tobacco: Never Smokeless Tobacco: Never Tobacco Cessation:Counseling Given: Not Answered Alcohol Use Standard Drinks/Week Comments Never 0 (1 standard drink = 0.6 oz pur e alcohol) Comments Unknown Sex and Gender Information Value Date Recorded Sex Assigned at Not on file Legal Sex Female 1:23 PM EST Gender Identity Not on file Sexual Orientation Not on file documented as of this encounter Last Filed Vital Signs Vital Sign Reading Time Taken Comments Blood Pressure 116/72 05/02/2025 8:34 AM EST Pulse 92 05/02/2025 8:34 AM EST Temperature - - Respiratory Rate - - Oxygen Saturation - - Inhaled Oxygen Concentration - - Weight 71 kg (156 lb 9.6 oz) 05/02/2025 8:34 AM EST Height 170.8 cm (5' 7.25 ) 05/02/2025 8:34 AM ES T Body Mass Index 24.35 05/02/2025 8:34 AM EST documented in this encounter Progress Notes * ANA Parker - 05/02/2025 8:30 AM EST Will discuss plans with Dr. Madrid and call you with update. * ANA Parker - 05/02/2025 8:30 AM EST PATIENT: Jasmyne Clifton ENCOUNTER: 05/02/2025 EMRN: [id number] : 1985 CHIEF COMPLAINT: Consult (ANALYST- axilla lesion) The patient was given the opportunity to have a production crew supervisor present during a sensitive examination attoday's visit. She declined this offer of a production crew supervisor. HPI: This 39 y.o. female presents for scar tissue of the bilateral axillae. She presents with a longstanding history of hidradenitis suppurativa affecting both axillae, and has been dealing with frequent infections for years. She reports recurrent episodes of painful nodules, sinus tract formation, purulent drainage, and progressive scarring. She underwent excision of over 10 cysts from the left axilla [place] [address] Engle and continues to have issues with these areas. She uses daily Humira prescribed by her doctor of naprapathy. She is now 6 months status post gastric sleeve surgery performed by Dr. Parker and she has lost over 100 lbs. She explains the frequency of her infections is less with the weight loss, however she now has extra skin in the axillas and flanks which are causing skin irritation and is worried this will worsen the infections. She is interested in a procedure to remove this excess skin, as well as wide local excision of the involved tissues. She is also interested in discussing a cosmetic breast lift. For today's visit we will focus on her axillas and arms. She is otherwise healthy. Nonsmoker. Patient does not take aspirin / anticoagulants. Her BMI is 24.35. ROS: CONSTITUTIONAL: no malaise, no significant weight changes, no excessive fatigue, no fevers or chills EYES: no visual complaints ENT: no changes in hearing vision nasal problems or hoarseness CARDIOVASCULAR:no chest pain and leg swelling or palpitations RESPIRATORY: no chronic cough wheezing or shortness of breath GI: no abdominal pain nausea vomiting or diarrhea : no dysuria frequency or incontinence NEUROLOGICAL: no stated paresthesias PSYCHIATRIC: no change from baseline ENDOCRINE: no heat or cold intolerance HEMATOLOGIC: no excessive bleeding MUSCULOSKELETAL: no aches or pains INTEGUMENTARY: as stated in HPI PAST MEDICAL HISTORY: Problem List[1] PAST SURGICAL HISTORY: Surgical History[2] SOCIAL HISTORY: Social History[3] FAMILY HISTORY: Family History[4] I have reviewed the following sections of the chart: Past medical history, surgical history, socialhistory and family history via records and directly with the patient. MEDICATIONS: Medications Taking[5] ALLERGIES: Current Allergies[6] PHYSICAL EXAM: Visit Vitals BP 116/72 Pulse 92 Ht 1.708 m (67.25 ) Wt 71 kg (156 lb 9.6 oz) BMI 24.35 kg/m?? Smoking Status Never BSA 1.83 m?? APPEARANCE: Normal EYES: Pupils, conjunctiva and sclera normal. EARS: normal MOUTH/THROAT: normal without lesions NECK: Neck supple, no adenopathy HEART: RRR with no murmurs appreciated LUNG: clear to auscultation LYMPH NODES: grossly normal ABDOMEN: soft and non-tender NEURO: Awake, alert and oriented x 3; cranial nerves II-XII grossly intact PSYCHIATRIC: Mood and affect are normal MUSCULOSKELETAL: normal SKIN: as noted below Bilateral axillae demonstrate chronic inflammatory changes consistent with hidradenitis suppurativa, including indurated scars, sinus tracts. There is one raised erythematous lesion in the right axilla. LABS / PATHOLOGY: General surgery notes note reviewed. IMAGING: No new imaging to review. IMPRESSION: 1. Hidradenitis suppurativa 2. Scar tissue PLAN: 1. 39 y.o. female with hidradenitis suppurativa and symptoms that have persisted despite medical management, including topical and systemic therapies. Due to the chronicity and impact on quality of life, she is seeking definitive surgical excision. Discussion of the natural pathophysiology of hidradenitis suppurativa and the option of surgical intervention. Discussed operative management involving wide excision of the diseased axillary tissue to achieve definitive control. Explained that the anticipated post-excisional defects will likely require flap- based reconstruction for adequate coverage and functional preservation. Reviewed the general risks and benefits of the procedure, including potential complications such aswound healing delay, infection, flap compromise, and recurrence. Case will be presented and discussed with Dr. Madrid to determine the optimal operative plan and reconstructive approach. Patient is agreeable with this plan and will return for follow-up consultation with the surgeon forfinal operative planning and scheduling if needed. Otherwise I will call her with updates. We briefly discussed cosmetic breast lift. Explained I am not sure she would be able to have both procedures at once, but she can discuss this with the surgeon. She is agreeable to this plan. All questions were encouraged and answered. Teresa Huertas PA-C Plastic and Reconstructive, Cosmetic and Laser Surgery [facility] A Member of [facility] W [phone] F [phone] [place] [address] [email or web address] cc: Jarad Guerra, [1] There is no problem list on file for this patient. [2] No past surgical history on file. [3] Social History Tobacco Use Smoking status: Never Smokeless tobacco: Never Substance Use Topics Alcohol use: Never Drug use: Never [4] No family history on file. [5] No outpatient medications have been marked as taking for the 05/02/25 encounter (Consult) with ANA Parker. [6] Allergies Allergen Reactions Caplyta [Lumateperone] Metformin documented in this encounter Plan of Treatment Not on file documented as of this encounter Visit Diagnoses Diagnosis Hidradenitis suppurativa- Primary Hidradenitis Scar tissue Scar condition and fibrosis of skin documented in this encounter Orders Outpatient Referral Count Last Ordered Date Fir st Ordered Date AMB REFERRAL TO PLASTIC SURGERY 1 5 documented in this encounter Care Teams Plastic Surgery Nurse Relationship Specialty Start Date End Date Jessi Leal MD [address] [place] [id number] PCP - General Internal Medicine 04/26/25 documented as of this encounter
[2025-05-04 10:00] VITALS: BMI 25.7
--- NOTE | 2025-05-04 10:00 | A.OFFVIS_ITS ---
Vital Signs 05/04/25 10:00 Height 5 ft 6 in Weight 159 lb BMI 25.7 Intake Visit Reasons: Thromboisis hemorrhoid Intake Note: Patient presents for [facility] emergency department follow-up for thrombosed hemorrhoid. Pt c/o; reports no complaint at this time. Malt Roaster Required: No Sales Merchandising Specialist: Sales Merchandising Specialist Present (Anabel) Accompanied by: Self / Same As Patient Allergies metformin Allergy (Verified 05/04/25 10:11) Diarrhea shellfish derived Allergy (Verified 05/04/25 10:11) Diarrhea, vomiting, nausea. HPI HPI Thromboisis hemorrhoid: Details: [age] year old female referred by the ER for a thrombosed hemorrhoid. She had gone to the ER last 04/20/2025 because of painful hemorrhoids. She was diagnosed to have a thrombosed hemorrhoid then this was drained in the ER. She says she had been doing well since then. She denies any pain or tenderness. She denies any bleeding She does admit that she has had hemorrhoids for years. She says that this really did not bother her except for occasional pain and bleeding. She does state that she had an episode of straining and constipation just prior to having this thrombosed hemorrhoid. [facility] Medical History H/O hidradenitis suppurativa History of MRSA infection Mood disorder PTSD (post-traumatic stress disorder) Anxiety Depression Sleep apnea Morbid obesity Hypertension Fatty liver Chronic headaches GERD (gastroesophageal reflux disease) High triglycerides IBS (irritable bowel syndrome) PCOS (polycystic ovarian syndrome) Surgical History S/P gastric sleeve procedure History of surgical removal of skin lesion H/O colonoscopy History of esophagogastroduodenoscopy (EGD) History of bladder surgery Family History Mother No problems noted. Father TIA (transient ischemic attack) Depression Anxiety Daughter No problems noted. Daughter No problems noted. Social History Household Members: Significant Other, Family and Children Housing: House Are you a primary resident care technician to a significant other at home: No Do you presently have visiting nurse or other home services: No Alcohol intake: never Comment: FRANNIE 07/16/24 Patient Tobacco Use Status: Former Tobacco user service: No Current occupational status: employed Review of Systems Const Denies chills and Denies fever(s) Card Denies chest pain, Denies dyspnea and Denies dyspnea on exertion Resp Denies cough, Denies dyspnea and Denies dyspnea on exertion GI Denies hematochezia, Denies change in bowel habits and Reports constipation Denies hematuria Musc Denies back pain and Denies limited range of motion Neuro Denies focal weakness and Denies convulsions Psych Denies depression and Denies mood swings Physical Exam Vital Signs: BMI result Body Mass Index 25.7 Const General: comfortable and no acute distress Nutritional Appearance: obese Orientation/consciousness: patient oriented x3 Neck Neck: Yes no lymphadenopathy Resp Auscultation: clear to auscultation bilaterally Cardio Rhythm: regular rhythm GI Other: Rectal exam shows no perianal lesions, no thrombosed hemorrhoid, small external hemorrhoids seen Palpation (GI): Soft to palpation, nontender and no guarding Neuro General: patient oriented x3 Office Procedures Anoscopy She was in healing fei-knife position. The anoscope was gently inserted. A full examination of the anal canal was done. She did have small a internal external hemorrhoidal column on the left. There were no lesions seen. There was no fissure ulceration. There was no residual thrombosis. There was no blood. There was no induration on digital exam. There was no pain or tenderness. [id number] Assessment & Plan Assessment & Plan (1) External hemorrhoid, thrombosed: Code(s): K64.5 - Perianal venous thrombosis Category: Medical Plan: She had this drained in the ER 2 weeks ago She does not have any residual symptoms. She feels well overall. Anoscopy and exam does not reveal any large hemorrhoidal column. Does not have any pain or tenderness I did tell her that she may have recurrences in the future. She does not seem to require any surgical intervention currently. I advised him the benefits of avoiding straining and constipation. She can follow up with me on a p.r.n. basis. Coding Level of Care Code New Pt Level 3 (92723) Diagnoses External hemorrhoid, thrombosed K64.5 CPT Codes Details - CPT: 60588-[id number] ([id number])
--- OUTSIDE RECORDS SUMMARY | 2025-05-04 11:37 | XMS_ITS | Clinical Summary ---
Author Organization [address] [facility] Address [address] [place] [address] Phone Care Team Providers Care Link Trainer Teacher Name Role Phone Jessi Leal MD Primary Care Provider [phone] Allergies Active Allergy Reactions Criticality Noted Date Comments Lumateperone 04/26/2025 Metformin 04/26/2025 Medications buPROPion XL (WELLBUTRIN XL) 150 mg 24 hr tablet Take 1 tablet (150 mg total) by mouth 1 (one) time each day in the morning. 04/06/2025 Active lamoTRIgine (LaMICtal XR) 250 mg tablet extended release 24hr 24 hr tablet Take 1 tablet (250 mg total) by mouth 1 (one) time each day. 04/02/2025 Active methylphenidate (RITALIN) 10 mg tablet TAKE 1 TABLET BY MOUTH THREE TIMES A DAY NEEDED FOR ADHD 04/06/2025 Active cephalexin (KEFLEX) 500 mg capsule 04/20/2025 Active Encounters Date Type Department Care Team Description 05/02/2025 8:30 AM EST Consult Plastic & Reconstructive Surgery - [place] [address] [facility] [address] [place] [address] Teresa Huertas PA Hidradenitis suppurativa (Primary Dx); Scar tissue 04/26/2025 10:45 AM EST Consult General Surgery [facility] [address] [facility] [address] [place] [address] Jarad Guerra DO Hidradenitis suppurativa (Primary Dx); S/P gastric sleeve procedure from Last 3 Months Social History Tobacco Use Types Packs/Day Years [...] on file Sexual Orientation Not on file Obstetrics History Last Filed Vital Signs Vital Sign Reading [...] Mass Index 24.35 05/02/2025 8:34 AM EST Plan of Treatment Health Maintenance Due Date Last Done Comments Cervical Cancer Screening: Pap Smear 10/12/2007 Hepatitis B Vaccines (2 of 3 - 19+ 3-dose series) 05/29/2011 05/01/2011 HPV Vaccines (1 - 3-dose SCDM series) 2013 Depression Screening 06/09/2024 COVID-19 Vaccine ( - 2024- season) 2025 03/25/2021, 07/13/2020, 06/19/2020 Influenza Vaccine (#1) 2025 , 04/05/2020, 03/18/2017, Additional history exists Cholesterol Screening (Lipid Panel) 04/21/2025 HIV Screening 04/21/2025 Hepatitis C Screening 04/21/2025 Social Influencers of Health Screening 04/21/2025 DTaP,Tdap,and Td Vaccines (4 - Td or Tdap) 03/02/2031 03/02/2021, 06/26/2016, 12/09/2007 RSV Immunization Adult Patients (1 - 1-dose 75+ series) 2061 HIB [...] age to complete this topic Pneumococcal Vaccine: Pediatrics (0 to 5 Years) and At-Risk Patients (6 to 49 Years) Aged Out No longer eligible based on patient's age to complete this topic RSV Immunization Patients Under 20 months Aged Out No longer eligible based on patient's age to complete this topic Varicella Vaccines Aged Out No longer eligible based on patient's age to complete this topic [place] [address] [place] [address] Care Teams Link Trainer Teacher Relationship Specialty Start Date End Date Jessi Leal MD [address] [place] [phone] PCP - General Internal Medicine 04/26/25
== END 2025-05-04 10:24 | disposition home or self-care (01) ==
LOC: HO.HGS 09:58
PROVIDERS: PCP Student in an Organized Health Care Education/Training Program; Visit Provider Surgery
DX: K64.5 Perianal venous thrombosis (principal)
CPT/HCPCS: 46600; 99203

== ENCOUNTER → 2025-05-04 09:58 | Outpatient (BNVA) | payer OTHER, SELFPAY | PROVIDERS: PCP Student in an Organized Health Care Education/Training Program; Visit Provider Surgery | DX: K64.5 Perianal venous thrombosis (principal) | CPT/HCPCS: 46600 ==